=== PATIENT | female | born 1950 | race Caucasian/White ===

== ENCOUNTER → 2018-07-02 08:14 | Outpatient (CLI) | payer MEDICARE, OTHER, SELFPAY ==
--- NOTE | 2018-07-02 | DI.MG.S_ITS ---
BILATERAL DIGITAL DIAGNOSTIC MAMMOGRAM 3D/2D: 07/02/2018 CLINICAL: Bilateral breast pain. Comparison is made to exams dated: 03/01/2015 mammogram, 10/23/2014 mammogram, and 08/01/2013 mammogram - [facility]. There are scattered fibroglandular elements in both breasts. No significant masses, calcifications, or other findings are seen in either breast. IMPRESSION: NEGATIVE There is no mammographic abnormality seen in either axilla to correspond with the pain in axillae. Of note, the patient could not identify a discrete region of pain. She described diffuse pain in both axillae. There is no mammographic evidence of malignancy. A 1 year screening mammogram is recommended. This exam was interpreted at Station ID: [id number]. NOTE: For mammograms, a report in lay terms will be sent to the patient. Approximately 15% of breast malignancies will not be visualized mammographically. In the management of a palpable breast mass, a negative mammogram must not discourage biopsy of a clinically suspicious lesion. Electronically Signed By: Estrellita hernandez/:07/02/2018 09:17:12 letter sent: Clinical Evaluation ACR BI-RADS Category 1: Negative 3341F
== END ==
PROVIDERS: Family Provider Family Medicine; PCP Family Medicine; Visit Provider Family Medicine
DX: R92.8 Other abnormal and inconclusive findings on diagnostic imaging of breast (principal); N64.4 Mastodynia; C95.90 Leukemia, unspecified not having achieved remission; M85.852 Other specified disorders of bone density and structure, left thigh; Z78.0 Asymptomatic menopausal state; Z87.891 Personal history of nicotine dependence
CPT/HCPCS: 77066; 77080; G0279

== ENCOUNTER → 2021-10-01 10:43 | Outpatient (CLI) | payer MEDICARE, OTHER, SELFPAY ==
--- NOTE | 2021-10-01 | DI.MG.S_ITS ---
BILATERAL DIGITAL SCREENING MAMMOGRAM 3D/2D WITH CAD: 10/01/2021 CLINICAL: Routine screening. Family history of breast cancer. Comparison is made to exams dated: 07/02/2018 mammogram, 03/01/2015 mammogram, 10/23/2014 mammogram, and 08/01/2013 mammogram - [facility]. There are scattered fibroglandular elements in both breasts. Current study was also evaluated with a Computer Aided Detection (CAD) system. There is an irregular equal density asymmetry with an indistinct margin in the right breast middle depth central to the nipple seen on the craniocaudal view only. No other significant masses, calcifications, or other findings are seen in either breast. IMPRESSION: INCOMPLETE: NEEDS ADDITIONAL IMAGING EVALUATION The irregular equal density asymmetry in the right breast is indeterminate. Mediolateral and spot compression views as well as additional views with possible ultrasound are recommended. This exam was interpreted at Station ID: [id number]. NOTE: For mammograms, a report in lay terms will be sent to the patient. Approximately 15% of breast malignancies will not be visualized mammographically. In the management of a palpable breast mass, a negative mammogram must not discourage biopsy of a clinically suspicious lesion. Electronically Signed By: Odilon arrieta/gladis:10/01/2021 12:26:16 letter sent: Additional Imaging Needed ACR BI-RADS Category 0: Incomplete [id number]
== END ==
PROVIDERS: Family Provider Family Medicine; PCP Family Medicine; Referring Provider Family Medicine; Visit Provider Family Medicine
DX: Z12.31 Encounter for screening mammogram for malignant neoplasm of breast (principal); Z80.3 Family history of malignant neoplasm of breast
CPT/HCPCS: 77063; 77067

== ENCOUNTER → 2021-11-21 14:00 | Outpatient (CLI) | payer MEDICARE, OTHER, SELFPAY ==
--- NOTE | 2021-11-21 | DI.MG.S_ITS ---
UNILATERAL RIGHT DIGITAL DIAGNOSTIC MAMMOGRAM 3D/2D WITH ADDITIONAL VIEWS: 11/21/2021 CLINICAL: Additional evaluation requested from prior study. Comparison is made to exams dated: 10/01/2021 mammogram, 07/02/2018 mammogram, 03/01/2015 mammogram, and 10/23/2014 mammogram - [facility]. There are scattered fibroglandular elements in right breast. There is a possible benign asymmetry in the right breast middle depth central to the nipple seen on the craniocaudal view only. This is not seen in additional views. No other significant masses or calcifications are seen in the breast. IMPRESSION: NEGATIVE There is no mammographic evidence of malignancy. A 1 year screening mammogram is recommended. Exam findings were conveyed to the patient. This exam was interpreted at Station ID: [id number]. NOTE: For mammograms, a report in lay terms will be sent to the patient. Approximately 15% of breast malignancies will not be visualized mammographically. In the management of a palpable breast mass, a negative mammogram must not discourage biopsy of a clinically suspicious lesion. Electronically Signed By: Garret Hummel M.D. [facility]/:11/21/2021 14:32:35 Entry: - 11/22/2021 09:45:38 letter sent: Normal Exam ACR BI-RADS Category 1: Negative 3341F
== END ==
PROVIDERS: Family Provider Family Medicine; PCP Family Medicine; Referring Provider Family Medicine; Visit Provider Family Medicine
DX: R92.8 Other abnormal and inconclusive findings on diagnostic imaging of breast (principal)
CPT/HCPCS: 77065; G0279

== ENCOUNTER → 2023-03-12 14:03 | Outpatient (CLI) | payer MEDICARE, OTHER, SELFPAY ==
--- NOTE | 2023-03-12 | DI.RAD.S_ITS ---
PROCEDURE: XR LUMBAR SPINE MIN 4V INDICATIONS: BACK PAIN TECHNIQUE: 5 views of the lumbar spine acquired, including flexion and extension views. COMPARISON: [facility], XR L-SPINE 4-6V, 01/19/2004, 14:25. FINDINGS: Bones: 5 nonrib-bearing vertebrae are present. 2 mm retrolisthesis L1-L2, L2-L3 and L3-L4. Mild to moderate disc height loss at the C4-C5 level; otherwise multilevel endplate sclerosis and spurring. Mild facet joint arthropathy L3-L4, L4-L5. No vertebral body compression fractures. No suspicious bony lesions. Soft tissues: Overlying bowel gas pattern is normal. No suspicious soft tissue calcifications. Vascular calcifications indicate atherosclerosis. Flexion/extension: There is limited range of motion, with preserved normal alignment. IMPRESSION: Limited range of motion and multilevel lumbar spine spondylosis, most notably L4-L5 and L5-S1 Dictated by: Filiberto Winston RRA Interpreted: Warren Morse MD on 03/12/2023 at 14:39 Transcribed by: MICHAEL on 03/12/2023 at 14:41 Approved by: Warren Morse M.D. on 03/12/2023 at 16:44
== END ==
PROVIDERS: Family Provider Family Medicine; PCP Family Medicine; Referring Provider Family Medicine; Visit Provider Family Medicine
DX: M47.816 Spondylosis without myelopathy or radiculopathy, lumbar region (principal); M47.817 Spondylosis without myelopathy or radiculopathy, lumbosacral region; M54.42 Lumbago with sciatica, left side
CPT/HCPCS: 72110

== ENCOUNTER → 2023-03-18 09:10 | Outpatient (CLI) | payer MEDICARE, OTHER, SELFPAY ==
--- NOTE | 2023-03-18 | DI.RAD.S_ITS ---
PROCEDURE: XR CHEST 2V INDICATIONS: history of smoking TECHNIQUE: 2 views of the chest were acquired. COMPARISON: [facility], , CHEST 2 VIEW, 11/04/2010, 14:32. FINDINGS: Surgical changes and devices: None. Lungs and pleura: Lungs are clear. No pleural effusions or pneumothorax. Mediastinum: Mediastinal contours are normal. Heart size is normal. Bones and chest wall: No suspicious bony abnormalities. Soft tissues appear unremarkable. IMPRESSION: No acute cardiopulmonary abnormality. Dictated by: Yaw Beltran M.D. on 03/18/2023 at 10:00 Approved by: Yaw Beltran M.D. on 03/18/2023 at 10:06
== END ==
PROVIDERS: Family Provider Family Medicine; PCP Family Medicine; Referring Provider Family Medicine; Visit Provider Family Medicine
DX: Z87.891 Personal history of nicotine dependence (principal)
CPT/HCPCS: 71046

== ENCOUNTER 2023-05-21 13:45 | Outpatient (RCR) | payer MEDICARE, OTHER, SELFPAY ==
--- NOTE | 2023-04-17 15:32 | PT.OIE ---
Current Diagnoses Pain in left hip (04/17/23) Lumbago with sciatica, left side (04/17/23) Muscle weakness (generalized) (04/17/23) Visit Care Team Role Provider Type Ivan Gracia MD Attending Provider Physician Family Provider Primary Care Provider Referring Provider Specialty: Family Practice Address: [address] [place] [address], [id number] Email: [email or web address] Physical Therapy Initial Evaluation PT-OP-A Visit Information Start: 04/16/23 11:48 Freq: Status: Active Protocol: Document 04/17/23 13:27 NM (Rec: 04/17/23 15:16 NM [id number]) Out-Patient Physical Therapy Visit Information Visit Information Visit Type Initial Evaluation Visit Start Time 12:15 Visit Stop Time 01:00 Total Visit Minutes 45 Visit Number 1 Evaluation Information Evaluation Date 04/17/23 PT-OP-B Current Condition Start: 04/16/23 11:48 Freq: Status: Active Protocol: Document 04/17/23 13:27 NM (Rec: 04/17/23 15:16 NM [id number]) Current Condition History of Current Condition Onset Date mid March 2023 Current Complaints Lower back pain radiating down the LLE, L hip pain History of Current Condition Pt reports lower back pain beginning in mid-March 2023 with no known onset. No prior history of back pain or back injuries. The back pain began as a banded pattern across the lower back, but is now localized to the L side ~L4/L5 with occasional radiation down the LLE to the calf. Pt was experiencing occasional numbness in L foot, but has not experienced any numbness for 3 days. Currently, pt describes back pain as a constant ache. Pain is best managed by tylenol and heat with occasional movement ( ambulation). Prior Treatments and Tests Pt had radiographs with Dr. Perera showing degenerative changes in L5-S1 and L4-L5. Future Testing and Treatments Planned Pt is planning to follow up with Dr. Perera. Treatment Goals Patient/Caregiver Goals Don shoes and socks without pain Walk for extended period of time for errands Bend over to garden Prior Functional Status Baseline Function- ADL's Independent Baseline Function- Mobility Independent Baseline Function- Gait No reported difficulty with ambulating Current Functional Impairments (Reported) Functional Limitations- ADL's Pt reports difficulty donning shoes/socks on L foot. She is unable to sit or walk for long periods of time. Pt also mentions that she is having difficulty with gardening due to pain from being in a flexed position, and she is unable to lift items from the the ground or a lower level. Functional Limitations- Mobility/Gait Difficulty with sitting for > 30 minutes without pain medication or heat. Pt has difficulty with initiating sit to stand transfers due to back/L hip pain. Pt is unable to rotate/roll during bed mobility and has to scoot up before sitting up to move to the edge of the bed. PT-OP-C Subjective Start: 04/16/23 11:48 Freq: Status: Active Protocol: Document 04/17/23 13:27 NM (Rec: 04/17/23 15:16 NM [id number]) Patient Questionnaires Oswestry Low Back Index Oswestry Impairment 20 to 39% Impaired (Score 20- 39) OP-PT Pain Assessment Pain Assessment Grid Paper Pain Assessment Grid Completed Yes Location L hip pain Pain Location Details L anterior hip Intensity 6 Scale Used Numeric (0 - 10) Description Acute,Sharp Frequency Frequent Pain Duration lasts several seconds Radiating Location none Pain Aggravating Factors Position,Changing Position, Activity,Sitting,Bending Pain Alleviating Factors Heat,Medication Back Pain Location Details low back Intensity 4 Scale Used Numeric (0 - 10) Description Aching,Acute,Shooting,With Movement Frequency Constant Pain Duration constant Radiating Location radiation down the LLE to the calf Variations/Patterns occasional radiation Pain Aggravating Factors Position,Changing Position,ADL 's,Activity,Sitting,Stair Climbing,Bending,Lifting Pain Alleviating Factors Heat,Medication,Exercise, Elevation Home Pain Medication Use Pain Medications Used Yes: extra strength tylenol Home Pain Medication Frequency every 8 hours Pain Behaviors Pain Behaviors Facial Grimacing,Guarding, Holding Area Comments Pain Comments Pt was prescribed dexamethosone and hydrocodone for back pain by Dr. Perera, but she ran out of medications and takes only extra strength tylenol now. PT-OP-D Balance Start: 04/16/23 11:48 Freq: Status: Active Protocol: Document 04/17/23 13:27 NM (Rec: 04/17/23 15:16 NM [id number]) OP-PT Balance Assessment Standing Balance Static Standing Balance Ability Good Dynamic Standing Balance Ability Fair Device Used none Balance Tests Single Limb Standing Single Limb- Right 3 sec Single Limb- Left 0 sec Aleman Fall Scale Copyright Permission PT-OP-E Functional Tests Start: 04/16/23 11:48 Freq: Status: Active Protocol: Document 04/17/23 13:27 NM (Rec: 04/17/23 15:16 NM [id number]) Functional Tests Five Times Sit to Stand Test Score 20 seconds Comments pain with initial sit to stands, but pain decreases with repetitive motion Timed Up and Go (TUG) Score 6 seconds Comments turned L TUG Impairment Rating 0% Impaired (Score 10) PT-OP-F Manual Assessment Start: 04/16/23 11:48 Freq: Status: Active Protocol: Document 04/17/23 13:27 NM (Rec: 04/17/23 15:16 NM [id number]) Manual Assessments Joint Mobility Assessment Joint Mobility Assessment PA springing to lumbar spine ( L1-LS2): end feels are springy and pain is not provoked. Hip mobility assessed: full B hip ROM, normal end feels; no pain provoked SI Joint PA springing: normal end feel, no pain provoked PT-OP-G Mobility & Gait Start: 04/16/23 11:48 Freq: Status: Active Protocol: Document 04/17/23 13:27 NM (Rec: 04/17/23 15:16 NM [id number]) OP Mobility Evaluation Bed Mobility Rolling Unable due to pain Supine to and from Sit Independent but with difficulty due to pain; has to scoot up in the bed to sit up and only gets out on the L side of the bed OP Gait Assessment Gait Gait Assistance Required: Independent Assistive Devices Assistive Device None Gait Deviations General Gait Pattern Antalgic,Flexed Trunk Factors Limiting Gait Function Factors Limiting Gait Function Limited Range of Motion,Pain Comments Gait Comments Upon initially moving from sit to stand, pt demonstrates unsteadiness and will reach for an object to steady; able to ambulate independently with antalgic gait, flexed trunk and knees to without loss of balance. PT-OP-J Posture/Palpation/Skin Start: 04/16/23 11:48 Freq: Status: Active Protocol: Document 04/17/23 13:27 NM (Rec: 04/17/23 15:16 NM [id number]) Posture Evaluation Position Standing Evaluation View Lateral Head/C-Spine Posture Flexed,Side Bent Right L-Spine Posture Decreased Lordosis Shoulder Posture (L) Forward,(R) Forward Hip Posture (L) Externally Rotated,(R) Externally Rotated Palpation Assessment Location L hip Palpation Location lateral hip Palpation Details No tenderness, no edema, no abnormal findings Paraspinals Palpation Findings Tenderness Palpation Details Tenderness around L L4-S2, but does not evoke symptoms. No muscle guarding PT-OP-K Range of Motion Start: 04/16/23 11:48 Freq: Status: Active Protocol: Document 04/17/23 13:27 NM (Rec: 04/17/23 15:16 NM [id number]) Lumbar Spine Range of Motion Lumbar Spine Active Degrees Testing Position Standing Flexion 50 Extension 20 Lateral Flexion Left 10 Lateral Flexion Right 20 ROM Limitations Pain Comments All active motions are limited due to pain, but primarily flexion and L rotation. L rot: 3 R rot: 5 Hip Goniometric Range of Motion Hip Left Hip ROM WFL Yes Testing Position Supine Right Hip ROM WFL Yes Testing Position Supine Hip ROM Limitations Hip ROM Limitations Pain Comments No pain provocation in B hips or back with hip movement in supine. Pain only in L hip external rotation in sitting. PT-OP-L Special Tests Start: 04/16/23 11:48 Freq: Status: Active Protocol: Document 04/17/23 13:27 NM (Rec: 04/17/23 15:16 NM [id number]) Special Tests Lumbar Spine Special Tests Yo/Quadrant Test Results negative Comments No symptom provocation in ext/ SB/rot on either side SIJ Cluster Test Results negative Comments No symptom provocation w B anterior distraction, sacral thrust, compression Straight Leg Raise Test Results Negative Comments No symptom provocation Prone Press Up Test Results Positive Comments Relieved back pain Standing Flexion Test Results 13 from ground Comments provokes back pain PT-OP-M Strength Start: 04/16/23 11:48 Freq: Status: Active Protocol: Document 04/17/23 13:27 NM (Rec: 04/17/23 15:16 NM [id number]) Trunk Strength Trunk Manual Muscle Testing Testing Position standing Flexion 4- Good- Extension 4- Good- Rotation Left 3+ Fair+ Rotation Right 4 Good Lateral Flexion Left 3+ Fair+ Lateral Flexion Right 4 Good Core Stabilization Unable to perform sitting up motion during bed mobility without use of BUE, difficulty maintaining stable trunk while in quadruped Comments Poor core stabilization without compensation (hip or shoulder rotation) Hip Strength Hip Manual Muscle Testing Left Flexion (L2) 4- Good- Extension (S1) 4- Good- Abduction 3+ Fair+ Adduction 4- Good- External Rotation 3+ Fair+ Internal Rotation 3+ Fair+ Comments No pain provocation in hips or low back Right Flexion (L2) 4 Good Extension (S1) 4 Good Abduction 4- Good- Adduction 4 Good External Rotation 3+ Fair+ Internal Rotation 3+ Fair+ Comments No pain provocation in hips or low back PT-OP-Q Treatments Start: 04/16/23 11:48 Freq: Status: Active Protocol: Document 04/17/23 13:27 NM (Rec: 04/17/23 15:16 NM [id number]) Therapeutic Exercises Prone Exercises Prone low back/hip stretch Prone Exercise Name elbows at 90 deg under shoulders Side bilateral Equipment Used table Reps/Minutes 30 Comments HEP Prone Press Up Side bilateral Equipment Used table Reps/Minutes 5 Comments HEP PT-OP-T Assessment and Plan Start: 04/16/23 11:48 Freq: Status: Active Protocol: Document 04/17/23 13:27 NM (Rec: 04/17/23 15:16 NM [id number]) Physical Therapy Assessment Rehab Potential Rehabilitation Potential Good Evaluation Complexity Number of Personal Factors/Comorbidities 3 or More Number of Body Systems Impaired 1-2 Clinical Presentation at Evaluation Evolving Impairments Impairments Activity Tolerance,Balance, Functional Activities, Functional Mobility,Gait,Pain, Posture,ROM,Soft Tissue Mobility,Strength Goals 5 Impairment ROM, Pain Short Term Goal (STG) Pt will be able to don L shoes and socks with a pain or 4/10 or less in order to demonstrate improved hip and lumbar ROM. STG Duration 05/07/23 [facility] Goal (LTG) Pt will be able to don L shoes and socks in sitting with pain of 2/10 or less in order to demonstrate improved hip and lumbar ROM, pain management, and activity tolerance. LTG Duration 05/22/23 4 Impairment Strength, Endurance Short Term Goal (STG) Pt will be able to walk for at least 20 minutes with low back pain of 3/10 or less in order to improve activity tolerance. STG Duration 05/07/23 [facility] Goal (LTG) Pt will be able to ambulate for at least 45 minutes with low back pain of 2/10 or less in order to demonstrate improved hip strength and activity tolerance for shopping/errands. LTG Duration 05/22/23 3 Impairment Pain Short Term Goal (STG) Pt will improve Oswestry score by 6 points in order to demostrate improved pain management. STG Duration 05/07/23 [facility] Goal (LTG) Pt will improve Oswestry score by 12 points (MCID) in order to demonstrate improved pain management and activity tolerance during ADLs. LTG Duration 05/22/23 2 Impairment Strength, Balance Short Term Goal (STG) Pt will be able to perform 5/ 10 step ups on a 6 step with LLE leading and 1 or fewer UE for stabilization . STG Duration 05/07/23 [facility] Goal (LTG) Pt will be able perform 8/10 step ups on a 6 step with LLE leading and no use of upper extremities for stabilization in order to demonstrate improved hip strength and single leg balance to safely use the stairs leading up the house and in the community. LTG Duration 05/22/23 1 Impairment Functional, ROM Short Term Goal (STG) Pt will improve lumbar flexion by 5 degrees. STG Duration 05/07/23 [facility] Goal (LTG) Pt will improve lumbar flexion by 10 degrees in order to leaf size picker objects from the ground without pain. LTG Duration 05/22/23 Assessment Summary Assessment Pt is a 72 y.o. female presenting with symptoms of L low back pain and L anterior/ lateral hip pain consistent with dx. Pt is limited by lumbar range of motion in all directions, with lumbar flexion primarily provoking pain. Limitations in trunk/ core strength and hip strength may also be a contributing factor. Pt has the most difficulty with transferring from sit to stand position, ambulating or sitting for extended periods of time, bending, lifting, and donnign shows/socks. Yo/quadrant test, straight leg raise, lumbar PA spring tests, and SIJ provocation tests do not provoke symptomatic pain; pain is only reproduced in lumbar flexion and wiht hip external rotation in sitting. Pt responds with decreased pain to Jesica extension exercises in prone; issued HEP with 2 prone press up exercises. Pt demonstrates deficits in trunk/core/hip strength and trunk ROM. Pt is a good candidate for skilled physical therapy to address impairments in strength, balance, endurance, posture, and gait in order to improve quality of life, pain management, and activity tolerance. Physical Therapy Plan Frequency and Duration Frequency of Treatment 2x/Week Duration of treatment (weeks) 6 Plan of Care Start Date 04/17/23 Plan of Care End Date 05/22/23 Therapeutic Interventions Therapeutic Interventions Aquatic Therapy,Balance Training,Coordination Training ,Gait Training,Home Exercise Program,Joint Mobilizations, Manual Therapy,Neuromuscular Re-education,Patient/Caregiver Education,Soft Tissue Mobilization,Therapeutic Activities,Therapeutic Exercises Modalities Cold Pack/Ice Massage,Electric Stimulation,Hot Packs, Traction- Mechanical Next Visit Focus/Plan Next Note Type Treatment Note Next Visit Plan Initiate gentle core strengthening. Stretch and strengthen hips, low back. Possibly manual traction in extension pattern
--- NOTE | 2023-04-17 15:34 | PT.OPPOC ---
Addendum entered and electronically signed by Michell Dawkins, PT 04/21/23 09:21: POC manually faxed 04/21/23 Original Note: Physical, Occupational & Speech Therapy At [facility] Current Diagnoses Pain in left hip (04/17/23) Lumbago with sciatica, left side (04/17/23) Muscle weakness (generalized) (04/17/23) Visit Care Team Role Provider Type Ivan Gracia MD Attending Provider Physician Family Provider Primary Care Provider Referring Provider Specialty: Family Practice Address: [address] [place] [address], [facility] Email: [email or web address] Plan Of Care PT-OP-T Assessment and Plan Start: 04/16/23 11:48 Freq: Status: Active Protocol: Document 04/17/23 13:27 NM (Rec: 04/17/23 15:16 NM [id number]) Physical Therapy Assessment Rehab Potential Rehabilitation Potential Good Evaluation Complexity Number of Personal Factors/Comorbidities 3 or More Number of Body Systems Impaired 1-2 Clinical Presentation at Evaluation Evolving Impairments Impairments Activity Tolerance,Balance, Functional Activities, Functional Mobility,Gait,Pain, Posture,ROM,Soft Tissue Mobility,Strength Goals 5 Impairment ROM, Pain Short Term Goal (STG) Pt will be able to don L shoes and socks with a pain or 4/10 or less in order to demonstrate improved hip and lumbar ROM. STG Duration 05/07/23 Office Inspector Goal (LTG) Pt will be able to don L shoes and socks in sitting with pain of 2/10 or less in order to demonstrate improved hip and lumbar ROM, pain management, and activity tolerance. LTG Duration 05/22/23 4 Impairment Strength, Endurance Short Term Goal (STG) Pt will be able to walk for at least 30 minutes with low back pain of 3/10 or less in order to improve activity tolerance. STG Duration 05/07/23 Office Inspector Goal (LTG) Pt will be able to ambulate for at least 60 minutes with low back pain of 2/10 or less in order to demonstrate improved hip strength and activity tolerance for shopping/errands. LTG Duration 05/22/23 3 Impairment Pain Short Term Goal (STG) Pt will improve Oswestry score by 6 points in order to demostrate improved pain management. STG Duration 05/07/23 Office Inspector Goal (LTG) Pt will improve Oswestry score by 12 points (MCID) in order to demonstrate improved pain management and activity tolerance during ADLs. LTG Duration 05/22/23 2 Impairment Strength, Balance Short Term Goal (STG) Pt will be able to perform 5/ 10 step ups on a 6 step with LLE leading and 1 or fewer UE for stabilization . STG Duration 05/07/23 Snf Goal (LTG) Pt will be able perform 8/10 step ups on a 6 step with LLE leading and no use of upper extremities for stabilization in order to demonstrate improved hip strength and single leg balance to safely use the stairs leading up the house and in the community. LTG Duration 05/22/23 1 Impairment Functional, ROM Short Term Goal (STG) Pt will improve lumbar flexion by 5 degrees. STG Duration 05/07/23 Snf Goal (LTG) Pt will improve lumbar flexion by 10 degrees in order to excelsior picker objects from the ground without pain. LTG Duration 05/22/23 Assessment Summary Assessment Pt is a 72 y.o. female presenting with symptoms of L low back pain and L anterior/ lateral hip pain consistent with dx. Pt is limited by lumbar range of motion in all directions, with lumbar flexion primarily provoking pain. Limitations in trunk/ core strength and hip strength may also be a contributing factor. Pt has the most difficulty with transferring from sit to stand position, ambulating or sitting for extended periods of time, bending, lifting, and donnign shows/socks. Yo/quadrant test, straight leg raise, lumbar PA spring tests, and SIJ provocation tests do not provoke symptomatic pain; pain is only reproduced in lumbar flexion and wiht hip external rotation in sitting. Pt responds with decreased pain to Jesica extension exercises in prone; issued HEP with 2 prone press up exercises. Pt demonstrates deficits in trunk/core/hip strength and trunk ROM. Pt is a good candidate for skilled physical therapy to address impairments in strength, balance, endurance, posture, and gait in order to improve quality of life, pain management, and activity tolerance. Physical Therapy Plan Frequency and Duration Frequency of Treatment 2x/Week Duration of treatment (weeks) 6 Plan of Care Start Date 04/17/23 Plan of Care End Date 05/22/23 Therapeutic Interventions Therapeutic Interventions Aquatic Therapy,Balance Training,Coordination Training ,Gait Training,Home Exercise Program,Joint Mobilizations, Manual Therapy,Neuromuscular Re-education,Patient/Caregiver Education,Soft Tissue Mobilization,Therapeutic Activities,Therapeutic Exercises Modalities Cold Pack/Ice Massage,Electric Stimulation,Hot Packs, Traction- Mechanical Next Visit Focus/Plan Next Note Type Treatment Note Next Visit Plan Initiate gentle core strengthening. Stretch and strengthen hips, low back. Possibly manual traction in extension pattern Plan of Care Dates Plan of Care Start Date 04/17/23 Plan of Care End Date 05/22/23 Electronically Signed by: Michell Dawkins, PT 04/17/23 [id number] If you are in agreement with this Plan of Care, please return a signed and dated copy. I have reviewed this Plan of Care and certify that the skilled therapy services above are required to meet the patient?s needs. Physician Signature Date Printed Name and Credentials Clinical Instructor Signature Printed Name and Credentials
--- NOTE | 2023-04-21 14:16 | PT.OTN ---
Current Diagnoses Pain in left hip (04/21/23) Lumbago with sciatica, left side (04/21/23) Muscle weakness (generalized) (04/21/23) Physical Therapy Treatment Note PT-OP-A Visit Information Start: 04/16/23 11:48 Freq: Status: Active Protocol: Document 04/21/23 13:07 NM (Rec: 04/21/23 14:15 NM [id number]) Out-Patient Physical Therapy Visit Information Visit Information Visit Type Treatment Note Visit Start Time 13:00 Visit Stop Time 13:45 Total Visit Minutes 45 Visit Number 2 PT-OP-B Current Condition Start: 04/16/23 11:48 Freq: Status: Active Protocol: Document 04/17/23 13:27 NM (Rec: 04/17/23 15:16 NM [id number]) Current Condition History of Current Condition Onset Date mid March 2023 Current Complaints Lower back pain radiating down the LLE, L hip pain History of Current Condition Pt reports lower back pain beginning in mid-March 2023 with no known onset. No prior history of back pain or back injuries. The back pain began as a banded pattern across the lower back, but is now localized to the L side ~L4/L5 with occasional radiation down the LLE to the calf. Pt was experiencing occasional numbness in L foot, but has not experienced any numbness for 3 days. Currently, pt describes back pain as a constant ache. Pain is best managed by tylenol and heat with occasional movement ( ambulation). Prior Treatments and Tests Pt had radiographs with Dr. Perera showing degenerative changes in L5-S1 and L4-L5. Future Testing and Treatments Planned Pt is planning to follow up with Dr. Perera. Treatment Goals Patient/Caregiver Goals Don shoes and socks without pain Walk for extended period of time for errands Bend over to garden Prior Functional Status Baseline Function- ADL's Independent Baseline Function- Mobility Independent Baseline Function- Gait No reported difficulty with ambulating Current Functional Impairments (Reported) Functional Limitations- ADL's Pt reports difficulty donning shoes/socks on L foot. She is unable to sit or walk for long periods of time. Pt also mentions that she is having difficulty with gardening due to pain from being in a flexed position, and she is unable to lift items from the the ground or a lower level. Functional Limitations- Mobility/Gait Difficulty with sitting for > 30 minutes without pain medication or heat. Pt has difficulty with initiating sit to stand transfers due to back/L hip pain. Pt is unable to rotate/roll during bed mobility and has to scoot up before sitting up to move to the edge of the bed. PT-OP-C Subjective Start: 04/16/23 11:48 Freq: Status: Active Protocol: Document 04/21/23 13:07 NM (Rec: 04/21/23 14:15 NM [id number]) OP-PT Subjective Patient Comments Patient Comments Pt reports that she is not doing well today. She states that she has 5/10 pain in her L hip and 4/10 pain in her low back; she did not take any pain medication today. She reports compliance with her HEP; however, she has difficulty performing the press up because her bed is too soft. PT-OP-D Balance Start: 04/16/23 11:48 Freq: Status: Active Protocol: Document 04/17/23 13:27 NM (Rec: 04/17/23 15:16 NM [id number]) OP-PT Balance Assessment Standing Balance Static Standing Balance Ability Good Dynamic Standing Balance Ability Fair Device Used none Balance Tests Single Limb Standing Single Limb- Right 3 sec Single Limb- Left 0 sec Aleman Fall Scale Copyright Permission PT-OP-E Functional Tests Start: 04/16/23 11:48 Freq: Status: Active Protocol: Document 04/17/23 13:27 NM (Rec: 04/17/23 15:16 NM [id number]) Functional Tests Five Times Sit to Stand Test Score 20 seconds Comments pain with initial sit to stands, but pain decreases with repetitive motion Timed Up and Go (TUG) Score 6 seconds Comments turned L TUG Impairment Rating 0% Impaired (Score 10) PT-OP-F Manual Assessment Start: 04/16/23 11:48 Freq: Status: Active Protocol: Document 04/17/23 13:27 NM (Rec: 04/17/23 15:16 NM [id number]) Manual Assessments Joint Mobility Assessment Joint Mobility Assessment PA springing to lumbar spine ( L1-LS2): end feels are springy and pain is not provoked. Hip mobility assessed: full B hip ROM, normal end feels; no pain provoked SI Joint PA springing: normal end feel, no pain provoked PT-OP-G Mobility & Gait Start: 04/16/23 11:48 Freq: Status: Active Protocol: Document 04/17/23 13:27 NM (Rec: 04/17/23 15:16 NM [id number]) OP Mobility Evaluation Bed Mobility Rolling Unable due to pain Supine to and from Sit Independent but with difficulty due to pain; has to scoot up in the bed to sit up and only gets out on the L side of the bed OP Gait Assessment Gait Gait Assistance Required: Independent Assistive Devices Assistive Device None Gait Deviations General Gait Pattern Antalgic,Flexed Trunk Factors Limiting Gait Function Factors Limiting Gait Function Limited Range of Motion,Pain Comments Gait Comments Upon initially moving from sit to stand, pt demonstrates unsteadiness and will reach for an object to steady; able to ambulate independently with antalgic gait, flexed trunk and knees to without loss of balance. PT-OP-J Posture/Palpation/Skin Start: 04/16/23 11:48 Freq: Status: Active Protocol: Document 04/17/23 13:27 NM (Rec: 04/17/23 15:16 NM [id number]) Posture Evaluation Position Standing Evaluation View Lateral Head/C-Spine Posture Flexed,Side Bent Right L-Spine Posture Decreased Lordosis Shoulder Posture (L) Forward,(R) Forward Hip Posture (L) Externally Rotated,(R) Externally Rotated Palpation Assessment Location L hip Palpation Location lateral hip Palpation Details No tenderness, no edema, no abnormal findings Paraspinals Palpation Findings Tenderness Palpation Details Tenderness around L L4-S2, but does not evoke symptoms. No muscle guarding PT-OP-K Range of Motion Start: 04/16/23 11:48 Freq: Status: Active Protocol: Document 04/17/23 13:27 NM (Rec: 04/17/23 15:16 NM [id number]) Lumbar Spine Range of Motion Lumbar Spine Active Degrees Testing Position Standing Flexion 50 Extension 20 Lateral Flexion Left 10 Lateral Flexion Right 20 ROM Limitations Pain Comments All active motions are limited due to pain, but primarily flexion and L rotation. L rot: 3 R rot: 5 Hip Goniometric Range of Motion Hip Left Hip ROM WFL Yes Testing Position Supine Right Hip ROM WFL Yes Testing Position Supine Hip ROM Limitations Hip ROM Limitations Pain Comments No pain provocation in B hips or back with hip movement in supine. Pain only in L hip external rotation in sitting. PT-OP-L Special Tests Start: 04/16/23 11:48 Freq: Status: Active Protocol: Document 04/17/23 13:27 NM (Rec: 04/17/23 15:16 NM [id number]) Special Tests Lumbar Spine Special Tests Yo/Quadrant Test Results negative Comments No symptom provocation in ext/ SB/rot on either side SIJ Cluster Test Results negative Comments No symptom provocation w B anterior distraction, sacral thrust, compression Straight Leg Raise Test Results Negative Comments No symptom provocation Prone Press Up Test Results Positive Comments Relieved back pain Standing Flexion Test Results 13 from ground Comments provokes back pain PT-OP-M Strength Start: 04/16/23 11:48 Freq: Status: Active Protocol: Document 04/17/23 13:27 NM (Rec: 04/17/23 15:16 NM [id number]) Trunk Strength Trunk Manual Muscle Testing Testing Position standing Flexion 4- Good- Extension 4- Good- Rotation Left 3+ Fair+ Rotation Right 4 Good Lateral Flexion Left 3+ Fair+ Lateral Flexion Right 4 Good Core Stabilization Unable to perform sitting up motion during bed mobility without use of BUE, difficulty maintaining stable trunk while in quadruped Comments Poor core stabilization without compensation (hip or shoulder rotation) Hip Strength Hip Manual Muscle Testing Left Flexion (L2) 4- Good- Extension (S1) 4- Good- Abduction 3+ Fair+ Adduction 4- Good- External Rotation 3+ Fair+ Internal Rotation 3+ Fair+ Comments No pain provocation in hips or low back Right Flexion (L2) 4 Good Extension (S1) 4 Good Abduction 4- Good- Adduction 4 Good External Rotation 3+ Fair+ Internal Rotation 3+ Fair+ Comments No pain provocation in hips or low back PT-OP-Q Treatments Start: 04/16/23 11:48 Freq: Status: Active Protocol: Document 04/21/23 13:07 NM (Rec: 04/21/23 14:15 NM [id number]) Therapeutic Exercises Supine Exercises LTR Side bilateral Reps/Minutes 2x30 Comments no pain with rotation, range increases with ea rep Bridge Supine Exercise Name HEP Side bilateral Resistance level 3 (light green) band at knees Reps/Minutes x10 Comments cues for glute activation + ppt, push against band for hip abd Prone Exercises Superman Prone Exercise Name HEP Side bilateral Reps/Minutes x10, 1 pause at top of range Comments BUE only; cues for paraspinal activation; completes with difficulty hip extension Side bilateral Reps/Minutes 2x15, 3 isometric at top of range Comments cues for glute activation, neutral hip position Prone low back/hip stretch Prone Exercise Name HEP Side bilateral Equipment Used table Reps/Minutes 2x1' Comments elbows at 90 deg under shoulders Prone Press Up Prone Exercise Name HEP Side bilateral Equipment Used table Reps/Minutes 2x10 Comments cues to contract paraspinals > arms Sidelying Exercises clams Sidelying Exercise Name HEP Side bilateral Equipment Used pillow between thighs for first sets Reps/Minutes 2x10 Comments cues to prevent trunk rotation , no pain Therapeutic Activity Therapeutic Activity Rolling Reps/Minutes x3 Comments Educated on rolling beginning in modified hooklying position to prevent twisting of trunk during bed mobility Manual Therapy Treatment Soft Tissue Mobilization Soft Tissue Mobilization Body Location B paraspinals, B QL Mobilization Type Cross-Friction,Sustained Pressure Intensity/Depth Superficial Body Position Supine Comments Exhibits slight muscle guarding but does not report tenderness or pain PT-OP-T Assessment and Plan Start: 04/16/23 11:48 Freq: Status: Active Protocol: Document 04/21/23 13:07 NM (Rec: 04/21/23 14:15 NM [id number]) Physical Therapy Assessment Rehab Potential Rehabilitation Potential Good Impairments Impairments Activity Tolerance,Balance, Functional Activities, Functional Mobility,Gait,Pain, Posture,ROM,Soft Tissue Mobility,Strength Goals 5 Impairment ROM, Pain Short Term Goal (STG) Pt will be able to don L shoes and socks with a pain or 4/10 or less in order to demonstrate improved hip and lumbar ROM. STG Duration 05/07/23 Manager Industrial Goal (LTG) Pt will be able to don L shoes and socks in sitting with pain of 2/10 or less in order to demonstrate improved hip and lumbar ROM, pain management, and activity tolerance. LTG Duration 05/22/23 4 Impairment Strength, Endurance Short Term Goal (STG) Pt will be able to walk for at least 30 minutes with low back pain of 3/10 or less in order to improve activity tolerance. STG Duration 05/07/23 Senior Living Goal (LTG) Pt will be able to ambulate for at least 60 minutes with low back pain of 2/10 or less in order to demonstrate improved hip strength and activity tolerance for shopping/errands. LTG Duration 05/22/23 3 Impairment Pain Short Term Goal (STG) Pt will improve Oswestry score by 6 points in order to demostrate improved pain management. STG Duration 05/07/23 Manager Industrial Goal (LTG) Pt will improve Oswestry score by 12 points (MCID) in order to demonstrate improved pain management and activity tolerance during ADLs. LTG Duration 05/22/23 2 Impairment Strength, Balance Short Term Goal (STG) Pt will be able to perform 5/ 10 step ups on a 6 step with LLE leading and 1 or fewer UE for stabilization . STG Duration 05/07/23 Manager Industrial Goal (LTG) Pt will be able perform 8/10 step ups on a 6 step with LLE leading and no use of upper extremities for stabilization in order to demonstrate improved hip strength and single leg balance to safely use the stairs leading up the house and in the community. LTG Duration 05/22/23 1 Impairment Functional, ROM Short Term Goal (STG) Pt will improve lumbar flexion by 5 degrees. STG Duration 05/07/23 Senior Living Goal (LTG) Pt will improve lumbar flexion by 10 degrees in order to garbage pick up man objects from the ground without pain. LTG Duration 05/22/23 Assessment Summary Assessment Pt tolerated treatment well and reports that she feels amazing after session completion. Initiated global hip and trunk extension strengthening with emphasis on execution, core engagement, and glute activation. Pt demonstrates improved trunk ROM during supine trunk rotation exercise. Continues to have preference for back extension over flexion;as pt progresses with strengthening and activity tolerance, will attempt to re-introduce flexion-biased exercises. Pt educated on sleeping position to assist symptom reduction and how to safely roll from modified hooklying to prevent symptom exacerbation during bed mobility. Most painful position is during standing hip hinge motion, primarily felt in L hip. HEP updated to include bridges, clam shells, and BUE superman for back extension strengthening. Pt would benefit from skilled PT to address impairments in hip/ trunk strength and ROM, activity tolerance, and pain management strategies. Physical Therapy Plan Frequency and Duration Frequency of Treatment 2x/Week Duration of treatment (weeks) 6 Plan of Care Start Date 04/17/23 Plan of Care End Date 05/22/23 Therapeutic Interventions Therapeutic Interventions Aquatic Therapy,Balance Training,Coordination Training ,Gait Training,Home Exercise Program,Joint Mobilizations, Manual Therapy,Neuromuscular Re-education,Patient/Caregiver Education,Soft Tissue Mobilization,Therapeutic Activities,Therapeutic Exercises Modalities Cold Pack/Ice Massage,Electric Stimulation,Hot Packs, Traction- Mechanical Next Visit Focus/Plan Next Note Type Treatment Note Next Visit Plan Progress hip and trunk strengthening as needed. If tolerated, initiate gentle trunk flexion activities ( supine - knees to chest stretch, core + TA activation like alt marches, etc). L hip is painful with standing hinge , rotation so be mindful during flexion activities.
--- NOTE | 2023-04-23 10:35 | PT-OP ANOTE ---
Pt cancelled <24 hrs, appt conflict.
--- NOTE | 2023-04-28 14:35 | PT.OTN ---
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 No prior history of back pain or back injuries. The back pain began as a banded pattern across the lower back, but is now localized to the L side ~L4/L5 with occasional radiation down the LLE to the calf. Pt was experiencing occasional numbness in L foot, but has not experienced any numbness for 3 days. Currently, pt describes back pain as a constant ache. Pain is best managed by tylenol and heat with occasional movement ( ambulation). Prior Treatments and Tests Pt had radiographs with Dr. Perera showing degenerative changes in L5-S1 and L4-L5. Future Testing and Treatments Planned Pt is planning to follow up with Dr. Perera. Treatment Goals Patient/Caregiver Goals Don shoes and socks without pain Walk for extended period of time for errands Bend over to garden Prior Functional Status Baseline Function- ADL's Independent Baseline Function- Mobility Independent Baseline Function- Gait No reported difficulty with ambulating Current Functional Impairments (Reported) Functional Limitations- ADL's Pt reports difficulty donning shoes/socks on L foot. She is unable to sit or walk for long periods of time. Pt also mentions that she is having difficulty with gardening due to pain from being in a flexed position, and she is unable to lift items from the the ground or a lower level. Functional Limitations- Mobility/Gait Difficulty with sitting for > 30 minutes without pain medication or heat. Pt has difficulty with initiating sit to stand transfers due to back/L hip pain. Pt is unable to rotate/roll during bed mobility and has to scoot up before sitting up to move to the edge of the bed. PT-OP-C Subjective Start: 04/16/23 11:48 Freq: Status: Active Protocol: Document 04/28/23 12:27 NM (Rec: 04/28/23 13:00 NM [id number]) OP-PT Subjective Patient Comments Patient Comments Pt states that she is doing very well with no pain. She reports compliance with exercises, and feels great. She was able to sleep on her bad hip. PT-OP-D Balance Start: 04/16/23 11:48 Freq: Status: Active Protocol: Document 04/17/23 13:27 NM (Rec: 04/17/23 15:16 NM [id number]) OP-PT Balance Assessment Standing Balance Static Standing Balance Ability Good Dynamic Standing Balance Ability Fair Device Used none Balance Tests Single Limb Standing Single Limb- Right 3 sec Single Limb- Left 0 sec Aleman Fall Scale Copyright Permission PT-OP-E Functional Tests Start: 04/16/23 11:48 Freq: Status: Active Protocol: Document 04/17/23 13:27 NM (Rec: 04/17/23 15:16 NM [id number]) Functional Tests Five Times Sit to Stand Test Score 20 seconds Comments pain with initial sit to stands, but pain decreases with repetitive motion Timed Up and Go (TUG) Score 6 seconds Comments turned L TUG Impairment Rating 0% Impaired (Score 10) PT-OP-F Manual Assessment Start: 04/16/23 11:48 Freq: Status: Active Protocol: Document 04/17/23 13:27 NM (Rec: 04/17/23 15:16 NM [id number]) Manual Assessments Joint Mobility Assessment Joint Mobility Assessment PA springing to lumbar spine ( L1-LS2): end feels are springy and pain is not provoked. Hip mobility assessed: full B hip ROM, normal end feels; no pain provoked SI Joint PA springing: normal end feel, no pain provoked PT-OP-G Mobility & Gait Start: 04/16/23 11:48 Freq: Status: Active Protocol: Document 04/17/23 13:27 NM (Rec: 04/17/23 15:16 NM [id number]) OP Mobility Evaluation Bed Mobility Rolling Unable due to pain Supine to and from Sit Independent but with difficulty due to pain; has to scoot up in the bed to sit up and only gets out on the L side of the bed OP Gait Assessment Gait Gait Assistance Required: Independent Assistive Devices Assistive Device None Gait Deviations General Gait Pattern Antalgic,Flexed Trunk Factors Limiting Gait Function Factors Limiting Gait Function Limited Range of Motion,Pain Comments Gait Comments Upon initially moving from sit to stand, pt demonstrates unsteadiness and will reach for an object to steady; able to ambulate independently with antalgic gait, flexed trunk and knees to without loss of balance. PT-OP-J Posture/Palpation/Skin Start: 04/16/23 11:48 Freq: Status: Active Protocol: Document 04/17/23 13:27 NM (Rec: 04/17/23 15:16 NM [id number]) Posture Evaluation Position Standing Evaluation View Lateral Head/C-Spine Posture Flexed,Side Bent Right L-Spine Posture Decreased Lordosis Shoulder Posture (L) Forward,(R) Forward Hip Posture (L) Externally Rotated,(R) Externally Rotated Palpation Assessment Location L hip Palpation Location lateral hip Palpation Details No tenderness, no edema, no abnormal findings Paraspinals Palpation Findings Tenderness Palpation Details Tenderness around L L4-S2, but does not evoke symptoms. No muscle guarding PT-OP-K Range of Motion Start: 04/16/23 11:48 Freq: Status: Active Protocol: Document 04/17/23 13:27 NM (Rec: 04/17/23 15:16 NM [id number]) Lumbar Spine Range of Motion Lumbar Spine Active Degrees Testing Position Standing Flexion 50 Extension 20 Lateral Flexion Left 10 Lateral Flexion Right 20 ROM Limitations Pain Comments All active motions are limited due to pain, but primarily flexion and L rotation. L rot: 3 R rot: 5 Hip Goniometric Range of Motion Hip Left Hip ROM WFL Yes Testing Position Supine Right Hip ROM WFL Yes Testing Position Supine Hip ROM Limitations Hip ROM Limitations Pain Comments No pain provocation in B hips or back with hip movement in supine. Pain only in L hip external rotation in sitting. PT-OP-L Special Tests Start: 04/16/23 11:48 Freq: Status: Active Protocol: Document 04/17/23 13:27 NM (Rec: 04/17/23 15:16 NM [id number]) Special Tests Lumbar Spine Special Tests Yo/Quadrant Test Results negative Comments No symptom provocation in ext/ SB/rot on either side SIJ Cluster Test Results negative Comments No symptom provocation w B anterior distraction, sacral thrust, compression Straight Leg Raise Test Results Negative Comments No symptom provocation Prone Press Up Test Results Positive Comments Relieved back pain Standing Flexion Test Results 13 from ground Comments provokes back pain PT-OP-M Strength Start: 04/16/23 11:48 Freq: Status: Active Protocol: Document 04/17/23 13:27 NM (Rec: 04/17/23 15:16 NM [id number]) Trunk Strength Trunk Manual Muscle Testing Testing Position standing Flexion 4- Good- Extension 4- Good- Rotation Left 3+ Fair+ Rotation Right 4 Good Lateral Flexion Left 3+ Fair+ Lateral Flexion Right 4 Good Core Stabilization Unable to perform sitting up motion during bed mobility without use of BUE, difficulty maintaining stable trunk while in quadruped Comments Poor core stabilization without compensation (hip or shoulder rotation) Hip Strength Hip Manual Muscle Testing Left Flexion (L2) 4- Good- Extension (S1) 4- Good- Abduction 3+ Fair+ Adduction 4- Good- External Rotation 3+ Fair+ Internal Rotation 3+ Fair+ Comments No pain provocation in hips or low back Right Flexion (L2) 4 Good Extension (S1) 4 Good Abduction 4- Good- Adduction 4 Good External Rotation 3+ Fair+ Internal Rotation 3+ Fair+ Comments No pain provocation in hips or low back PT-OP-Q Treatments Start: 04/16/23 11:48 Freq: Status: Active Protocol: Document 04/28/23 12:27 NM (Rec: 04/28/23 13:00 NM [id number]) Therapeutic Exercises Supine Exercises Figure four Side bilateral Reps/Minutes 2x30 Comments with hip flexion, reports no lateral hip pain TA activation Supine Exercise Name 1. Contraction, 2. Single leg august Reps/Minutes 10 ea Comments good TA activation with august Prone Exercises Child's pose Side bilateral Reps/Minutes 2x30 Comments reports good stretch Superman Side bilateral Reps/Minutes x10, 1 pause at top of range Comments BUE only; cues for paraspinal activation; completes with difficulty hip extension Side bilateral Reps/Minutes 2x15, 3 isometric at top of range Comments cues for glute activation, neutral hip position Prone low back/hip stretch Side bilateral Equipment Used table Reps/Minutes 30 between exercises in prone /quad Comments elbows at 90 deg under shoulders Sidelying Exercises clams Sidelying Exercise Name progress to sidelying hip abd Side bilateral Equipment Used green band for clams, none for straight leg abd Reps/Minutes 2x12 Comments second set straight leg hip abd Other Exercises Cat Cow Reps/Minutes x12 Comments manual assist for ant pelvic tilt, difficulty with extension ROM Therapeutic Activity Therapeutic Activity Get up/down from floor Reps/Minutes x10 Comments Pt moving from standing > squat > half kneel > tall kneel > side sit > sidelying > roll to supine then return in reverse to standing. Use mat in front of pt (to simulate her couch) in order for safety in standing and to decrease load on back at this time. Pt wanting to perform HEP on floor and mentioned concerns about moving to/from floor PT-OP-T Assessment and Plan Start: 04/16/23 11:48 Freq: Status: Active Protocol: Document 04/28/23 12:27 NM (Rec: 04/28/23 13:00 NM [id number]) Physical Therapy Assessment Goals 5 Impairment ROM, Pain Short Term Goal (STG) Pt will be able to don L shoes and socks with a pain or 4/10 or less in order to demonstrate improved hip and lumbar ROM. STG Duration 05/07/23 Frame Opener Goal (LTG) Pt will be able to don L shoes and socks in sitting with pain of 2/10 or less in order to demonstrate improved hip and lumbar ROM, pain management, and activity tolerance. LTG Duration 05/22/23 4 Impairment Strength, Endurance Short Term Goal (STG) Pt will be able to walk for at least 30 minutes with low back pain of 3/10 or less in order to improve activity tolerance. STG Duration 05/07/23 Frame Opener Goal (LTG) Pt will be able to ambulate for at least 60 minutes with low back pain of 2/10 or less in order to demonstrate improved hip strength and activity tolerance for shopping/errands. LTG Duration 05/22/23 3 Impairment Pain Short Term Goal (STG) Pt will improve Oswestry score by 6 points in order to demostrate improved pain management. STG Duration 05/07/23 Frame Opener Goal (LTG) Pt will improve Oswestry score by 12 points (MCID) in order to demonstrate improved pain management and activity tolerance during ADLs. LTG Duration 05/22/23 2 Impairment Strength, Balance Short Term Goal (STG) Pt will be able to perform 5/ 10 step ups on a 6 step with LLE leading and 1 or fewer UE for stabilization . STG Duration 05/07/23 Half-Way Goal (LTG) Pt will be able perform 8/10 step ups on a 6 step with LLE leading and no use of upper extremities for stabilization in order to demonstrate improved hip strength and single leg balance to safely use the stairs leading up the house and in the community. LTG Duration 05/22/23 1 Impairment Functional, ROM Short Term Goal (STG) Pt will improve lumbar flexion by 5 degrees. STG Duration 05/07/23 Half-Way Goal (LTG) Pt will improve lumbar flexion by 10 degrees in order to case picker objects from the ground without pain. LTG Duration 05/22/23 Assessment Summary Assessment Pt tolerated treatment well and has shown significant improvement in back/L hip pain since evaluation. She has been very compliant with HEP and is interesting in returning to more activity/ beginning a walking program. Began flexion-based exercises and stretching today; pt had no increased pain. Progressed hip strengthening and trunk extension strengthening. Will continue to progress as tolerated. Pt also was able to perform a supine figure 4 piriformis stretch today without pain in back or B hips ; as long as pt continues to improve, will attempt to perform in sitting as if donning shoes in order to work toward goals. Pt would benefit from skilled PT for continued trunk and core strengthening, ROM, pain management, and to improve activity tolerance. Physical Therapy Plan Frequency and Duration Frequency of Treatment 2x/Week Duration of treatment (weeks) 6 Plan of Care Start Date 04/17/23 Plan of Care End Date 05/22/23 Therapeutic Interventions Therapeutic Interventions Aquatic Therapy,Balance Training,Coordination Training ,Gait Training,Home Exercise Program,Joint Mobilizations, Manual Therapy,Neuromuscular Re-education,Patient/Caregiver Education,Soft Tissue Mobilization,Therapeutic Activities,Therapeutic Exercises Modalities Cold Pack/Ice Massage,Electric Stimulation,Hot Packs, Traction- Mechanical Next Visit Focus/Plan Next Note Type Treatment Note Next Visit Plan Progress hip and trunk strengthening, core.
--- NOTE | 2023-04-30 13:30 | PT.OTN ---
Current Diagnoses Pain in left hip (04/30/23) Lumbago with sciatica, left side (04/30/23) Muscle weakness (generalized) (04/30/23) Physical Therapy Treatment Note PT-OP-A Visit Information Start: 04/16/23 11:48 Freq: Status: Active Protocol: Document 04/30/23 12:21 NM (Rec: 04/30/23 12:58 NM [id number]) Out-Patient Physical Therapy Visit Information Visit Information Visit Type Treatment Note Visit Start Time 12:15 Visit Stop Time 13:00 Total Visit Minutes 45 Visit Number 4 PT-OP-B Current Condition Start: 04/16/23 11:48 Freq: Status: Active Protocol: Document 04/17/23 13:27 NM (Rec: 04/17/23 15:16 NM [id number]) Current Condition History of Current Condition Onset Date mid March 2023 Current Complaints Lower back pain radiating down the LLE, L hip pain History of Current Condition Pt reports lower back pain beginning in mid-March 2023 with no known onset. No prior history of back pain or back injuries. The back pain began as a banded pattern across the lower back, but is now localized to the L side ~L4/L5 with occasional radiation down the LLE to the calf. Pt was experiencing occasional numbness in L foot, but has not experienced any numbness for 3 days. Currently, pt describes back pain as a constant ache. Pain is best managed by tylenol and heat with occasional movement ( ambulation). Prior Treatments and Tests Pt had radiographs with Dr. Perera showing degenerative changes in L5-S1 and L4-L5. Future Testing and Treatments Planned Pt is planning to follow up with Dr. Perera. Treatment Goals Patient/Caregiver Goals Don shoes and socks without pain Walk for extended period of time for errands Bend over to garden Prior Functional Status Baseline Function- ADL's Independent Baseline Function- Mobility Independent Baseline Function- Gait No reported difficulty with ambulating Current Functional Impairments (Reported) Functional Limitations- ADL's Pt reports difficulty donning shoes/socks on L foot. She is unable to sit or walk for long periods of time. Pt also mentions that she is having difficulty with gardening due to pain from being in a flexed position, and she is unable to lift items from the the ground or a lower level. Functional Limitations- Mobility/Gait Difficulty with sitting for > 30 minutes without pain medication or heat. Pt has difficulty with initiating sit to stand transfers due to back/L hip pain. Pt is unable to rotate/roll during bed mobility and has to scoot up before sitting up to move to the edge of the bed. PT-OP-C Subjective Start: 04/16/23 11:48 Freq: Status: Active Protocol: Document 04/30/23 12:21 NM (Rec: 04/30/23 12:58 NM [id number]) OP-PT Subjective Patient Comments Patient Comments Pt reports that she has sore calves today, likely from the bridge exercise. Overall she is doing well with no back or hip pain. She is compliant with HEP. Patient Reported Progress Improving PT-OP-D Balance Start: 04/16/23 11:48 Freq: Status: Active Protocol: Document 04/17/23 13:27 NM (Rec: 04/17/23 15:16 NM [id number]) OP-PT Balance Assessment Standing Balance Static Standing Balance Ability Good Dynamic Standing Balance Ability Fair Device Used none Balance Tests Single Limb Standing Single Limb- Right 3 sec Single Limb- Left 0 sec Aleman Fall Scale Copyright Permission PT-OP-E Functional Tests Start: 04/16/23 11:48 Freq: Status: Active Protocol: Document 04/17/23 13:27 NM (Rec: 04/17/23 15:16 NM [id number]) Functional Tests Five Times Sit to Stand Test Score 20 seconds Comments pain with initial sit to stands, but pain decreases with repetitive motion Timed Up and Go (TUG) Score 6 seconds Comments turned L TUG Impairment Rating 0% Impaired (Score 10) PT-OP-F Manual Assessment Start: 04/16/23 11:48 Freq: Status: Active Protocol: Document 04/17/23 13:27 NM (Rec: 04/17/23 15:16 NM [id number]) Manual Assessments Joint Mobility Assessment Joint Mobility Assessment PA springing to lumbar spine ( L1-LS2): end feels are springy and pain is not provoked. Hip mobility assessed: full B hip ROM, normal end feels; no pain provoked SI Joint PA springing: normal end feel, no pain provoked PT-OP-G Mobility & Gait Start: 04/16/23 11:48 Freq: Status: Active Protocol: Document 04/17/23 13:27 NM (Rec: 04/17/23 15:16 NM [id number]) OP Mobility Evaluation Bed Mobility Rolling Unable due to pain Supine to and from Sit Independent but with difficulty due to pain; has to scoot up in the bed to sit up and only gets out on the L side of the bed OP Gait Assessment Gait Gait Assistance Required: Independent Assistive Devices Assistive Device None Gait Deviations General Gait Pattern Antalgic,Flexed Trunk Factors Limiting Gait Function Factors Limiting Gait Function Limited Range of Motion,Pain Comments Gait Comments Upon initially moving from sit to stand, pt demonstrates unsteadiness and will reach for an object to steady; able to ambulate independently with antalgic gait, flexed trunk and knees to without loss of balance. PT-OP-J Posture/Palpation/Skin Start: 04/16/23 11:48 Freq: Status: Active Protocol: Document 04/17/23 13:27 NM (Rec: 04/17/23 15:16 NM [id number]) Posture Evaluation Position Standing Evaluation View Lateral Head/C-Spine Posture Flexed,Side Bent Right L-Spine Posture Decreased Lordosis Shoulder Posture (L) Forward,(R) Forward Hip Posture (L) Externally Rotated,(R) Externally Rotated Palpation Assessment Location L hip Palpation Location lateral hip Palpation Details No tenderness, no edema, no abnormal findings Paraspinals Palpation Findings Tenderness Palpation Details Tenderness around L L4-S2, but does not evoke symptoms. No muscle guarding PT-OP-K Range of Motion Start: 04/16/23 11:48 Freq: Status: Active Protocol: Document 04/17/23 13:27 NM (Rec: 04/17/23 15:16 NM [id number]) Lumbar Spine Range of Motion Lumbar Spine Active Degrees Testing Position Standing Flexion 50 Extension 20 Lateral Flexion Left 10 Lateral Flexion Right 20 ROM Limitations Pain Comments All active motions are limited due to pain, but primarily flexion and L rotation. L rot: 3 R rot: 5 Hip Goniometric Range of Motion Hip Left Hip ROM WFL Yes Testing Position Supine Right Hip ROM WFL Yes Testing Position Supine Hip ROM Limitations Hip ROM Limitations Pain Comments No pain provocation in B hips or back with hip movement in supine. Pain only in L hip external rotation in sitting. PT-OP-L Special Tests Start: 04/16/23 11:48 Freq: Status: Active Protocol: Document 04/17/23 13:27 NM (Rec: 04/17/23 15:16 NM [id number]) Special Tests Lumbar Spine Special Tests Yo/Quadrant Test Results negative Comments No symptom provocation in ext/ SB/rot on either side SIJ Cluster Test Results negative Comments No symptom provocation w B anterior distraction, sacral thrust, compression Straight Leg Raise Test Results Negative Comments No symptom provocation Prone Press Up Test Results Positive Comments Relieved back pain Standing Flexion Test Results 13 from ground Comments provokes back pain PT-OP-M Strength Start: 04/16/23 11:48 Freq: Status: Active Protocol: Document 04/17/23 13:27 NM (Rec: 04/17/23 15:16 NM [id number]) Trunk Strength Trunk Manual Muscle Testing Testing Position standing Flexion 4- Good- Extension 4- Good- Rotation Left 3+ Fair+ Rotation Right 4 Good Lateral Flexion Left 3+ Fair+ Lateral Flexion Right 4 Good Core Stabilization Unable to perform sitting up motion during bed mobility without use of BUE, difficulty maintaining stable trunk while in quadruped Comments Poor core stabilization without compensation (hip or shoulder rotation) Hip Strength Hip Manual Muscle Testing Left Flexion (L2) 4- Good- Extension (S1) 4- Good- Abduction 3+ Fair+ Adduction 4- Good- External Rotation 3+ Fair+ Internal Rotation 3+ Fair+ Comments No pain provocation in hips or low back Right Flexion (L2) 4 Good Extension (S1) 4 Good Abduction 4- Good- Adduction 4 Good External Rotation 3+ Fair+ Internal Rotation 3+ Fair+ Comments No pain provocation in hips or low back PT-OP-Q Treatments Start: 04/16/23 11:48 Freq: Status: Active Protocol: Document 04/30/23 12:21 NM (Rec: 04/30/23 12:58 NM [id number]) Therapeutic Exercises Supine Exercises Dickson Stretch Side bilateral Reps/Minutes 2x30 Figure four Supine Exercise Name cross leg piriformis- trialed today Side bilateral Reps/Minutes 1x60 Comments no hip pain; demo'd in actively in sitting today with no hip pain TA activation Supine Exercise Name 1. Dying bug Sidelying Exercises Sitting figure 4 Sidelying Exercise Name trialed Side bilateral Reps/Minutes 30 Comments no pain Standing Exercises Hip hinge Side bilateral Equipment Used wall Reps/Minutes 2x10 Comments manual assist for hinge initially, cue to touch wall with bottom Calf stretch Side bilateral Equipment Used JORDAN Reps/Minutes 2x30 Other Exercises Quadruped Other Exercise Name 1. donkey kicks, 2. fire hydrant, 3. bird dog-trialed Side bilateral Reps/Minutes 2x15 ea Comments cues to prevent hip rot PT-OP-T Assessment and Plan Start: 04/16/23 11:48 Freq: Status: Active Protocol: Document 04/30/23 12:21 NM (Rec: 04/30/23 12:58 NM [id number]) Physical Therapy Assessment Impairments Impairments Activity Tolerance,Balance, Functional Activities, Functional Mobility,Gait,Pain, Posture,ROM,Soft Tissue Mobility,Strength Goals 5 Impairment ROM, Pain Short Term Goal (STG) Pt will be able to don L shoes and socks with a pain or 4/10 or less in order to demonstrate improved hip and lumbar ROM. STG Duration 05/07/23 Usp Goal (LTG) Pt will be able to don L shoes and socks in sitting with pain of 2/10 or less in order to demonstrate improved hip and lumbar ROM, pain management, and activity tolerance. LTG Duration 05/22/23 4 Impairment Strength, Endurance Short Term Goal (STG) Pt will be able to walk for at least 30 minutes with low back pain of 3/10 or less in order to improve activity tolerance. STG Duration 05/07/23 Usp Goal (LTG) Pt will be able to ambulate for at least 60 minutes with low back pain of 2/10 or less in order to demonstrate improved hip strength and activity tolerance for shopping/errands. LTG Duration 05/22/23 3 Impairment Pain Short Term Goal (STG) Pt will improve Oswestry score by 6 points in order to demostrate improved pain management. STG Duration 05/07/23 Furniture Fabricator Goal (LTG) Pt will improve Oswestry score by 12 points (MCID) in order to demonstrate improved pain management and activity tolerance during ADLs. LTG Duration 05/22/23 2 Impairment Strength, Balance Short Term Goal (STG) Pt will be able to perform 5/ 10 step ups on a 6 step with LLE leading and 1 or fewer UE for stabilization . STG Duration 05/07/23 Usp Goal (LTG) Pt will be able perform 8/10 step ups on a 6 step with LLE leading and no use of upper extremities for stabilization in order to demonstrate improved hip strength and single leg balance to safely use the stairs leading up the house and in the community. LTG Duration 05/22/23 1 Impairment Functional, ROM Short Term Goal (STG) Pt will improve lumbar flexion by 5 degrees. STG Duration 05/07/23 Usp Goal (LTG) Pt will improve lumbar flexion by 10 degrees in order to pickler helper objects from the ground without pain. LTG Duration 05/22/23 Assessment Summary Assessment Pt tolerated well and continues to demo improvement in exercise tolerance in addition to symptom management . Progressed into more lumbar flexion-based activities today , including hip hinge against the wall and seated lumbar flexion to pickler helper a ball from the ground. Initiated hip hinge using wall as tactile cue. She required moderate cues for execution and manual assist for hinge at initial reps; no symptoms reported and will continue to progress as tolerated. Today, pt is able to put on shoes while seated in hip ER, which she was unable to do at the initial evaluation. Pt would benefit from skilled PT to continue to address impairments in hip/ core/strength, mobility, and to continue to improve activity tolerance for PLOF. Physical Therapy Plan Frequency and Duration Frequency of Treatment 2x/Week Duration of treatment (weeks) 6 Plan of Care Start Date 04/17/23 Plan of Care End Date 05/22/23 Therapeutic Interventions Therapeutic Interventions Aquatic Therapy,Balance Training,Coordination Training ,Gait Training,Home Exercise Program,Joint Mobilizations, Manual Therapy,Neuromuscular Re-education,Patient/Caregiver Education,Soft Tissue Mobilization,Therapeutic Activities,Therapeutic Exercises Modalities Cold Pack/Ice Massage,Electric Stimulation,Hot Packs, Traction- Mechanical Next Visit Focus/Plan Next Note Type Treatment Note Next Visit Plan Look at goals to determine what is met. Continue with hip hinge, core strengthening, hip/trunk strengthening and mobility. Intro squat and step ups
--- NOTE | 2023-05-19 15:32 | PT.OTN ---
Current Diagnoses Pain in left hip (05/19/23) Lumbago with sciatica, left side (05/19/23) Muscle weakness (generalized) (05/19/23) Physical Therapy Treatment Note PT-OP-A Visit Information Start: 04/16/23 11:48 Freq: Status: Active Protocol: Document 05/19/23 13:59 NM (Rec: 05/19/23 14:31 NM [id number]) Out-Patient Physical Therapy Visit Information Visit Information Visit Type Treatment Note Visit Note PN today Visit Start Time 13:45 Visit Stop Time 14:30 Total Visit Minutes 45 Visit Number 5 Evaluation Information Evaluation Date 04/17/23 PT-OP-B Current Condition Start: 04/16/23 11:48 Freq: Status: Active Protocol: Document 04/17/23 13:27 NM (Rec: 04/17/23 15:16 NM [id number]) Current Condition History of Current Condition Onset Date mid March 2023 Current Complaints Lower back pain radiating down the LLE, L hip pain History of Current Condition Pt reports lower back pain beginning in mid-March 2023 with no known onset. No prior history of back pain or back injuries. The back pain began as a banded pattern across the lower back, but is now localized to the L side ~L4/L5 with occasional radiation down the LLE to the calf. Pt was experiencing occasional numbness in L foot, but has not experienced any numbness for 3 days. Currently, pt describes back pain as a constant ache. Pain is best managed by tylenol and heat with occasional movement ( ambulation). Prior Treatments and Tests Pt had radiographs with Dr. Perera showing degenerative changes in L5-S1 and L4-L5. Future Testing and Treatments Planned Pt is planning to follow up with Dr. Perera. Treatment Goals Patient/Caregiver Goals Don shoes and socks without pain Walk for extended period of time for errands Bend over to garden Prior Functional Status Baseline Function- ADL's Independent Baseline Function- Mobility Independent Baseline Function- Gait No reported difficulty with ambulating Current Functional Impairments (Reported) Functional Limitations- ADL's Pt reports difficulty donning shoes/socks on L foot. She is unable to sit or walk for long periods of time. Pt also mentions that she is having difficulty with gardening due to pain from being in a flexed position, and she is unable to lift items from the the ground or a lower level. Functional Limitations- Mobility/Gait Difficulty with sitting for > 30 minutes without pain medication or heat. Pt has difficulty with initiating sit to stand transfers due to back/L hip pain. Pt is unable to rotate/roll during bed mobility and has to scoot up before sitting up to move to the edge of the bed. PT-OP-C Subjective Start: 04/16/23 11:48 Freq: Status: Active Protocol: Document 05/19/23 13:59 NM (Rec: 05/19/23 14:31 NM [id number]) OP-PT Subjective Patient Comments Patient Comments Pt reports that she is doing well and feels better after last week (cold). She is doing well with exercises, no complaints of pain. She has been walking every day. Patient Reported Progress Improving PT-OP-D Balance Start: 04/16/23 11:48 Freq: Status: Active Protocol: Document 04/17/23 13:27 NM (Rec: 04/17/23 15:16 NM [id number]) OP-PT Balance Assessment Standing Balance Static Standing Balance Ability Good Dynamic Standing Balance Ability Fair Device Used none Balance Tests Single Limb Standing Single Limb- Right 3 sec Single Limb- Left 0 sec Aleman Fall Scale Copyright Permission PT-OP-E Functional Tests Start: 04/16/23 11:48 Freq: Status: Active Protocol: Document 04/17/23 13:27 NM (Rec: 04/17/23 15:16 NM [id number]) Functional Tests Five Times Sit to Stand Test Score 20 seconds Comments pain with initial sit to stands, but pain decreases with repetitive motion Timed Up and Go (TUG) Score 6 seconds Comments turned L TUG Impairment Rating 0% Impaired (Score 10) PT-OP-F Manual Assessment Start: 04/16/23 11:48 Freq: Status: Active Protocol: Document 04/17/23 13:27 NM (Rec: 04/17/23 15:16 NM [id number]) Manual Assessments Joint Mobility Assessment Joint Mobility Assessment PA springing to lumbar spine ( L1-LS2): end feels are springy and pain is not provoked. Hip mobility assessed: full B hip ROM, normal end feels; no pain provoked SI Joint PA springing: normal end feel, no pain provoked PT-OP-G Mobility & Gait Start: 04/16/23 11:48 Freq: Status: Active Protocol: Document 04/17/23 13:27 NM (Rec: 04/17/23 15:16 NM [id number]) OP Mobility Evaluation Bed Mobility Rolling Unable due to pain Supine to and from Sit Independent but with difficulty due to pain; has to scoot up in the bed to sit up and only gets out on the L side of the bed OP Gait Assessment Gait Gait Assistance Required: Independent Assistive Devices Assistive Device None Gait Deviations General Gait Pattern Antalgic,Flexed Trunk Factors Limiting Gait Function Factors Limiting Gait Function Limited Range of Motion,Pain Comments Gait Comments Upon initially moving from sit to stand, pt demonstrates unsteadiness and will reach for an object to steady; able to ambulate independently with antalgic gait, flexed trunk and knees to without loss of balance. PT-OP-J Posture/Palpation/Skin Start: 04/16/23 11:48 Freq: Status: Active Protocol: Document 04/17/23 13:27 NM (Rec: 04/17/23 15:16 NM [id number]) Posture Evaluation Position Standing Evaluation View Lateral Head/C-Spine Posture Flexed,Side Bent Right L-Spine Posture Decreased Lordosis Shoulder Posture (L) Forward,(R) Forward Hip Posture (L) Externally Rotated,(R) Externally Rotated Palpation Assessment Location L hip Palpation Location lateral hip Palpation Details No tenderness, no edema, no abnormal findings Paraspinals Palpation Findings Tenderness Palpation Details Tenderness around L L4-S2, but does not evoke symptoms. No muscle guarding PT-OP-K Range of Motion Start: 04/16/23 11:48 Freq: Status: Active Protocol: Document 04/17/23 13:27 NM (Rec: 04/17/23 15:16 NM [id number]) Lumbar Spine Range of Motion Lumbar Spine Active Degrees Testing Position Standing Flexion 50 Extension 20 Lateral Flexion Left 10 Lateral Flexion Right 20 ROM Limitations Pain Comments All active motions are limited due to pain, but primarily flexion and L rotation. L rot: 3 R rot: 5 Hip Goniometric Range of Motion Hip Left Hip ROM WFL Yes Testing Position Supine Right Hip ROM WFL Yes Testing Position Supine Hip ROM Limitations Hip ROM Limitations Pain Comments No pain provocation in B hips or back with hip movement in supine. Pain only in L hip external rotation in sitting. PT-OP-L Special Tests Start: 04/16/23 11:48 Freq: Status: Active Protocol: Document 04/17/23 13:27 NM (Rec: 04/17/23 15:16 NM [id number]) Special Tests Lumbar Spine Special Tests Yo/Quadrant Test Results negative Comments No symptom provocation in ext/ SB/rot on either side SIJ Cluster Test Results negative Comments No symptom provocation w B anterior distraction, sacral thrust, compression Straight Leg Raise Test Results Negative Comments No symptom provocation Prone Press Up Test Results Positive Comments Relieved back pain Standing Flexion Test Results 13 from ground Comments provokes back pain PT-OP-M Strength Start: 04/16/23 11:48 Freq: Status: Active Protocol: Document 04/17/23 13:27 NM (Rec: 04/17/23 15:16 NM [id number]) Trunk Strength Trunk Manual Muscle Testing Testing Position standing Flexion 4- Good- Extension 4- Good- Rotation Left 3+ Fair+ Rotation Right 4 Good Lateral Flexion Left 3+ Fair+ Lateral Flexion Right 4 Good Core Stabilization Unable to perform sitting up motion during bed mobility without use of BUE, difficulty maintaining stable trunk while in quadruped Comments Poor core stabilization without compensation (hip or shoulder rotation) Hip Strength Hip Manual Muscle Testing Left Flexion (L2) 4- Good- Extension (S1) 4- Good- Abduction 3+ Fair+ Adduction 4- Good- External Rotation 3+ Fair+ Internal Rotation 3+ Fair+ Comments No pain provocation in hips or low back Right Flexion (L2) 4 Good Extension (S1) 4 Good Abduction 4- Good- Adduction 4 Good External Rotation 3+ Fair+ Internal Rotation 3+ Fair+ Comments No pain provocation in hips or low back PT-OP-Q Treatments Start: 04/16/23 11:48 Freq: Status: Active Protocol: Document 05/19/23 13:59 NM (Rec: 05/19/23 14:31 NM [id number]) Therapeutic Exercises Supine Exercises Dickson Stretch Side bilateral Reps/Minutes 1x30 Figure four Supine Exercise Name demo'd actively in sitting, no pain Side bilateral Reps/Minutes 1x30 Standing Exercises Hip hinge Side bilateral Equipment Used wall behind back, dowel in hands Reps/Minutes 2x10 Comments attempted 4# weight but mid back pain, no LBP Other Exercises Squat Other Exercise 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 thread the needle, 2. hip CARs Side bilateral Reps/Minutes 2x10 Comments for improved thoracic mob, hip mob PT-OP-T Assessment and Plan Start: 04/16/23 11:48 Freq: Status: Active Protocol: Document 05/19/23 13:59 NM (Rec: 05/19/23 14:31 NM [id number]) Physical Therapy Assessment Rehab Potential Rehabilitation Potential Good Evaluation Complexity Number of Personal Factors/Comorbidities 3 or More Number of Body Systems Impaired 1-2 Clinical Presentation at Evaluation Evolving Impairments Impairments Activity Tolerance,Balance, Functional Activities, Functional Mobility,Gait,Pain, Posture,ROM,Soft Tissue Mobility,Strength Goals 5 Impairment ROM, Pain Short Term Goal (STG) Pt will be able to don L shoes and socks with a pain or 4/10 or less in order to demonstrate improved hip and lumbar ROM. STG Duration 05/07/23 MET Senior Care Goal (LTG) Pt will be able to don L shoes and socks in sitting with pain of 2/10 or less in order to demonstrate improved hip and lumbar ROM, pain management, and activity tolerance. LTG Duration 05/22/23 MET 4 Impairment Strength, Endurance Short Term Goal (STG) Pt will be able to walk for at least 30 minutes with low back pain of 3/10 or less in order to improve activity tolerance. STG Duration 05/07/23 MET Podiatric Medicine Professor Goal (LTG) Pt will be able to ambulate for at least 60 minutes with low back pain of 2/10 or less in order to demonstrate improved hip strength and activity tolerance for shopping/errands. LTG Duration 05/22/23 MET 3 Impairment Pain Short Term Goal (STG) Pt will improve Oswestry score by 6 points in order to demostrate improved pain management. STG Duration 05/07/23 MET [facility] Goal (LTG) Pt will improve Oswestry score by 12 points (MCID) in order to demonstrate improved pain management and activity tolerance during ADLs. LTG Duration 05/22/23 MET () 2 Impairment Strength, Balance Short Term Goal (STG) Pt will be able to perform 5/ 10 step ups on a 6 step with LLE leading and 1 or fewer UE for stabilization . STG Duration 05/07/23 MET Podiatric Medicine Professor Goal (LTG) Pt will be able perform 8/10 step ups on a 6 step with LLE leading and no use of upper extremities for stabilization in order to demonstrate improved hip strength and single leg balance to safely use the stairs leading up the house and in the community. LTG Duration 05/22/23 MET 1 Impairment Functional, ROM Short Term Goal (STG) Pt will improve lumbar flexion by 5 degrees. 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 LTG Duration 05/22/23 MET Assessment Summary Assessment Pt tolerated well and continues to demo improvement in exercise tolerance in addition to symptom management . Pt has some mid-thoracic pain with hip hinge, which is resolved with thoracic rotation mobilization. 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 Initiated hip hinge using wall as tactile cue. She required moderate cues for execution and manual assist for hinge at initial reps; no symptoms reported and will continue to progress as tolerated. Continued with hip hinge and initiated squats today to emphasize glute strengthening and progress into flexion bias. Pt is progressing well and has met all goals. PT and pt discussed POC and decided that pt will discharge after next visit with HEP. Pt would benefit from skilled PT to continue to address impairments in hip/ core/strength, mobility, and to continue to improve activity tolerance for PLOF. Physical Therapy Plan Frequency and Duration Frequency of Treatment 2x/Week Duration of treatment (weeks) 6 Plan of Care Start Date 04/17/23 Plan of Care End Date 05/22/23 Therapeutic Interventions Therapeutic Interventions Aquatic Therapy,Balance Training,Coordination Training ,Gait Training,Home Exercise Program,Joint Mobilizations, Manual Therapy,Neuromuscular Re-education,Patient/Caregiver Education,Soft Tissue Mobilization,Therapeutic Activities,Therapeutic Exercises Modalities Cold Pack/Ice Massage,Electric Stimulation,Hot Packs, Traction- Mechanical Next Visit Focus/Plan Next Note Type Discharge Summary Next Visit Plan Continue with hip hinge, core strengthening, hip/trunk strengthening and mobility, squat, step up. HEP for discharge
--- NOTE | 2023-05-19 15:41 | PT.OPPN ---
Current Diagnoses Pain in left hip (05/19/23) Lumbago with sciatica, left side (05/19/23) Muscle weakness (generalized) (05/19/23) Physical Therapy Progress Note PT-OP-A Visit Information Start: 04/16/23 11:48 Freq: Status: Active Protocol: Document 05/19/23 13:59 NM (Rec: 05/19/23 15:41 NM [id number]) Out-Patient Physical Therapy Visit Information Visit Information Visit Type Progress Note Visit Start Time 13:45 Visit Stop Time 14:30 Total Visit Minutes 45 Visit Number 5 Evaluation Information Evaluation Date 04/17/23 PT-OP-B Current Condition Start: 04/16/23 11:48 Freq: Status: Active Protocol: Document 04/17/23 13:27 NM (Rec: 04/17/23 15:16 NM [id number]) Current Condition History of Current Condition Onset Date mid March 2023 Current Complaints Lower back pain radiating down the LLE, L hip pain History of Current Condition Pt reports lower back pain beginning in mid-March 2023 with no known onset. No prior history of back pain or back injuries. The back pain began as a banded pattern across the lower back, but is now localized to the L side ~L4/L5 with occasional radiation down the LLE to the calf. Pt was experiencing occasional numbness in L foot, but has not experienced any numbness for 3 days. Currently, pt describes back pain as a constant ache. Pain is best managed by tylenol and heat with occasional movement ( ambulation). Prior Treatments and Tests Pt had radiographs with Dr. Perera showing degenerative changes in L5-S1 and L4-L5. Future Testing and Treatments Planned Pt is planning to follow up with Dr. Perera. Treatment Goals Patient/Caregiver Goals Don shoes and socks without pain Walk for extended period of time for errands Bend over to garden Prior Functional Status Baseline Function- ADL's Independent Baseline Function- Mobility Independent Baseline Function- Gait No reported difficulty with ambulating Current Functional Impairments (Reported) Functional Limitations- ADL's Pt reports difficulty donning shoes/socks on L foot. She is unable to sit or walk for long periods of time. Pt also mentions that she is having difficulty with gardening due to pain from being in a flexed position, and she is unable to lift items from the the ground or a lower level. Functional Limitations- Mobility/Gait Difficulty with sitting for > 30 minutes without pain medication or heat. Pt has difficulty with initiating sit to stand transfers due to back/L hip pain. Pt is unable to rotate/roll during bed mobility and has to scoot up before sitting up to move to the edge of the bed. PT-OP-C Subjective Start: 04/16/23 11:48 Freq: Status: Active Protocol: Document 05/19/23 13:59 NM (Rec: 05/19/23 15:41 NM [id number]) OP-PT Subjective Patient Comments Patient Comments Pt reports that she is doing well and feels better after last week (cold). She is doing well with exercises, no complaints of pain. She has been walking every day. Patient Reported Progress Improving PT-OP-D Balance Start: 04/16/23 11:48 Freq: Status: Active Protocol: Document 04/17/23 13:27 NM (Rec: 04/17/23 15:16 NM [id number]) OP-PT Balance Assessment Standing Balance Static Standing Balance Ability Good Dynamic Standing Balance Ability Fair Device Used none Balance Tests Single Limb Standing Single Limb- Right 3 sec Single Limb- Left 0 sec Aleman Fall Scale Copyright Permission Ash GALLARDO, Ash RM, Ruben SJ. Development of a scale to identify the fall- prone patient. Can J Aging 1989;8;366-7. Gaetano Aleman (2009). Preventing patient falls. (2nd ed). Boyle: Cee. PT-OP-E Functional Tests Start: 04/16/23 11:48 Freq: Status: Active Protocol: Document 04/17/23 13:27 NM (Rec: 04/17/23 15:16 NM [id number]) Functional Tests Five Times Sit to Stand Test Score 20 seconds Comments pain with initial sit to stands, but pain decreases with repetitive motion Timed Up and Go (TUG) Score 6 seconds Comments turned L TUG Impairment Rating 0% Impaired (Score 10) PT-OP-F Manual Assessment Start: 04/16/23 11:48 Freq: Status: Active Protocol: Document 04/17/23 13:27 NM (Rec: 04/17/23 15:16 NM [id number]) Manual Assessments Joint Mobility Assessment Joint Mobility Assessment PA springing to lumbar spine ( L1-LS2): end feels are springy and pain is not provoked. Hip mobility assessed: full B hip ROM, normal end feels; no pain provoked SI Joint PA springing: normal end feel, no pain provoked PT-OP-G Mobility & Gait Start: 04/16/23 11:48 Freq: Status: Active Protocol: Document 05/19/23 13:59 NM (Rec: 05/19/23 15:41 NM [id number]) OP Gait Assessment Comments Gait Comments 05/19/23: Gait is no longer antalgic and demos more normal mechanics. No lateral trunk lean PT-OP-J Posture/Palpation/Skin Start: 04/16/23 11:48 Freq: Status: Active Protocol: Document 04/17/23 13:27 NM (Rec: 04/17/23 15:16 NM [id number]) Posture Evaluation Position Standing Evaluation View Lateral Head/C-Spine Posture Flexed,Side Bent Right L-Spine Posture Decreased Lordosis Shoulder Posture (L) Forward,(R) Forward Hip Posture (L) Externally Rotated,(R) Externally Rotated Palpation Assessment Location L hip Palpation Location lateral hip Palpation Details No tenderness, no edema, no abnormal findings Paraspinals Palpation Findings Tenderness Palpation Details Tenderness around L L4-S2, but does not evoke symptoms. No muscle guarding PT-OP-K Range of Motion Start: 04/16/23 11:48 Freq: Status: Active Protocol: Document 05/19/23 13:59 NM (Rec: 05/19/23 15:41 NM [id number]) Lumbar Spine Range of Motion Lumbar Spine Active Degrees Comments Updated 05/19/23: Flex 60 deg (to floor, no pain ) Ext 20 deg Lateral flex 20 deg ea direction PT-OP-L Special Tests Start: 04/16/23 11:48 Freq: Status: Active Protocol: Document 04/17/23 13:27 NM (Rec: 04/17/23 15:16 NM [id number]) Special Tests Lumbar Spine Special Tests Yo/Quadrant Test Results negative Comments No symptom provocation in ext/ SB/rot on either side SIJ Cluster Test Results negative Comments No symptom provocation w B anterior distraction, sacral thrust, compression Straight Leg Raise Test Results Negative Comments No symptom provocation Prone Press Up Test Results Positive Comments Relieved back pain Standing Flexion Test Results 13 from ground Comments provokes back pain PT-OP-M Strength Start: 04/16/23 11:48 Freq: Status: Active Protocol: Document 04/17/23 13:27 NM (Rec: 04/17/23 15:16 NM [id number]) Trunk Strength Trunk Manual Muscle Testing Testing Position standing Flexion 4- Good- Extension 4- Good- Rotation Left 3+ Fair+ Rotation Right 4 Good Lateral Flexion Left 3+ Fair+ Lateral Flexion Right 4 Good Core Stabilization Unable to perform sitting up motion during bed mobility without use of BUE, difficulty maintaining stable trunk while in quadruped Comments Poor core stabilization without compensation (hip or shoulder rotation) Hip Strength Hip Manual Muscle Testing Left Flexion (L2) 4- Good- Extension (S1) 4- Good- Abduction 3+ Fair+ Adduction 4- Good- External Rotation 3+ Fair+ Internal Rotation 3+ Fair+ Comments No pain provocation in hips or low back Right Flexion (L2) 4 Good Extension (S1) 4 Good Abduction 4- Good- Adduction 4 Good External Rotation 3+ Fair+ Internal Rotation 3+ Fair+ Comments No pain provocation in hips or low back PT-OP-T Assessment and Plan Start: 04/16/23 11:48 Freq: Status: Active Protocol: Document 05/19/23 13:59 NM (Rec: 05/19/23 15:41 NM [id number]) Physical Therapy Assessment Rehab Potential Rehabilitation Potential Good Evaluation Complexity Number of Personal Factors/Comorbidities 3 or More Number of Body Systems Impaired 1-2 Clinical Presentation at Evaluation Evolving Impairments Impairments Activity Tolerance,Balance, Functional Activities, Functional Mobility,Gait,Pain, Posture,ROM,Soft Tissue Mobility,Strength Goals 5 Impairment ROM, Pain Short Term Goal (STG) Pt will be able to don L shoes and socks with a pain or 4/10 or less in order to demonstrate improved hip and lumbar ROM. STG Duration 05/07/23 MET Assisted Goal (LTG) Pt will be able to don L shoes and socks in sitting with pain of 2/10 or less in order to demonstrate improved hip and lumbar ROM, pain management, and activity tolerance. LTG Duration 05/22/23 MET 4 Impairment Strength, Endurance Short Term Goal (STG) Pt will be able to walk for at least 30 minutes with low back pain of 3/10 or less in order to improve activity tolerance. STG Duration 05/07/23 MET Assisted Goal (LTG) Pt will be able to ambulate for at least 60 minutes with low back pain of 2/10 or less in order to demonstrate improved hip strength and activity tolerance for shopping/errands. LTG Duration 05/22/23 MET 3 Impairment Pain Short Term Goal (STG) Pt will improve Oswestry score by 6 points in order to demostrate improved pain management. STG Duration 05/07/23 MET Marketing Planning Manager Goal (LTG) Pt will improve Oswestry score by 12 points (MCID) in order to demonstrate improved pain management and activity tolerance during ADLs. LTG Duration 05/22/23 MET (1/50) 2 Impairment Strength, Balance Short Term Goal (STG) Pt will be able to perform 5/ 10 step ups on a 6 step with LLE leading and 1 or fewer UE for stabilization . STG Duration 05/07/23 MET Assisted Goal (LTG) Pt will be able perform 8/10 step ups on a 6 step with LLE leading and no use of upper extremities for stabilization in order to demonstrate improved hip strength and single leg balance to safely use the stairs leading up the house and in the community. LTG Duration 05/22/23 MET 1 Impairment Functional, ROM Short Term Goal (STG) Pt will improve lumbar flexion by 5 degrees. STG Duration 05/07/23 MET Marketing Planning Manager Goal (LTG) Pt will improve lumbar flexion by 10 degrees in order to fish bait picker objects from the ground without pain. LTG Duration 05/22/23 MET Assessment Summary Assessment Pt continues to demo improvement in exercise tolerance and symptom management since IE. Pt is progressing well and has met of her all goals. Her new Oswestry is 1/50, indicating better ADL tolerance. She has normal lumbar spine ROM and no longer has pain with movements. She is able to participate in all ADLs and recreational activities without restriction. PT and pt discussed POC and decided that pt will discharge after next visit with HEP. Pt would benefit from skilled PT to address impairments in hip/ core/strength, mobility, and to continue to improve activity tolerance for PLOF. Physical Therapy Plan Frequency and Duration Frequency of Treatment 2x/Week Duration of treatment (weeks) 6 Plan of Care Start Date 04/17/23 Plan of Care End Date 05/22/23 Therapeutic Interventions Therapeutic Interventions Aquatic Therapy,Balance Training,Coordination Training ,Gait Training,Home Exercise Program,Joint Mobilizations, Manual Therapy,Neuromuscular Re-education,Patient/Caregiver Education,Soft Tissue Mobilization,Therapeutic Activities,Therapeutic Exercises Modalities Cold Pack/Ice Massage,Electric Stimulation,Hot Packs, Traction- Mechanical Next Visit Focus/Plan Next Note Type Discharge Summary Next Visit Plan Continue with hip hinge, core strengthening, hip/trunk strengthening and mobility, squat, step up. HEP for discharge
--- NOTE | 2023-05-21 14:20 | PT.OTN ---
Current Diagnoses Pain in left hip (05/21/23) Lumbago with sciatica, left side (05/21/23) Muscle weakness (generalized) (05/21/23) Physical Therapy Treatment Note PT-OP-A Visit Information Start: 04/16/23 11:48 Freq: Status: Active Protocol: Document 05/21/23 13:50 NM (Rec: 05/21/23 14:20 NM [id number]) Out-Patient Physical Therapy Visit Information Visit Information Visit Type Treatment Note Visit Note DC today Visit Start Time 13:47 Visit Stop Time 14:20 Total Visit Minutes 33 Visit Number 6 Evaluation Information Evaluation Date 04/17/23 PT-OP-B Current Condition Start: 04/16/23 11:48 Freq: Status: Active Protocol: Document 04/17/23 13:27 NM (Rec: 04/17/23 15:16 NM [id number]) Current Condition History of Current Condition Onset Date mid March 2023 Current Complaints Lower back pain radiating down the LLE, L hip pain History of Current Condition Pt reports lower back pain beginning in mid-March 2023 with no known onset. No prior history of back pain or back injuries. The back pain began as a banded pattern across the lower back, but is now localized to the L side ~L4/L5 with occasional radiation down the LLE to the calf. Pt was experiencing occasional numbness in L foot, but has not experienced any numbness for 3 days. Currently, pt describes back pain as a constant ache. Pain is best managed by tylenol and heat with occasional movement ( ambulation). Prior Treatments and Tests Pt had radiographs with Dr. Perera showing degenerative changes in L5-S1 and L4-L5. Future Testing and Treatments Planned Pt is planning to follow up with Dr. Perera. Treatment Goals Patient/Caregiver Goals Don shoes and socks without pain Walk for extended period of time for errands Bend over to garden Prior Functional Status Baseline Function- ADL's Independent Baseline Function- Mobility Independent Baseline Function- Gait No reported difficulty with ambulating Current Functional Impairments (Reported) Functional Limitations- ADL's Pt reports difficulty donning shoes/socks on L foot. She is unable to sit or walk for long periods of time. Pt also mentions that she is having difficulty with gardening due to pain from being in a flexed position, and she is unable to lift items from the the ground or a lower level. Functional Limitations- Mobility/Gait Difficulty with sitting for > 30 minutes without pain medication or heat. Pt has difficulty with initiating sit to stand transfers due to back/L hip pain. Pt is unable to rotate/roll during bed mobility and has to scoot up before sitting up to move to the edge of the bed. PT-OP-C Subjective Start: 04/16/23 11:48 Freq: Status: Active Protocol: Document 05/21/23 13:50 NM (Rec: 05/21/23 14:20 NM [id number]) OP-PT Subjective Patient Comments Patient Comments Pt reports that she is doing well. She has a mask today because she has been sneezing a lot, but she reports that she is not contagious. Pt has met all goals and is agreeable to discharge today. Patient Reported Progress Improving PT-OP-D Balance Start: 04/16/23 11:48 Freq: Status: Active Protocol: Document 04/17/23 13:27 NM (Rec: 04/17/23 15:16 NM [id number]) OP-PT Balance Assessment Standing Balance Static Standing Balance Ability Good Dynamic Standing Balance Ability Fair Device Used none Balance Tests Single Limb Standing Single Limb- Right 3 sec Single Limb- Left 0 sec Aleman Fall Scale Copyright Permission PT-OP-E Functional Tests Start: 04/16/23 11:48 Freq: Status: Active Protocol: Document 04/17/23 13:27 NM (Rec: 04/17/23 15:16 NM [id number]) Functional Tests Five Times Sit to Stand Test Score 20 seconds Comments pain with initial sit to stands, but pain decreases with repetitive motion Timed Up and Go (TUG) Score 6 seconds Comments turned L TUG Impairment Rating 0% Impaired (Score 10) PT-OP-F Manual Assessment Start: 04/16/23 11:48 Freq: Status: Active Protocol: Document 04/17/23 13:27 NM (Rec: 04/17/23 15:16 NM [id number]) Manual Assessments Joint Mobility Assessment Joint Mobility Assessment PA springing to lumbar spine ( L1-LS2): end feels are springy and pain is not provoked. Hip mobility assessed: full B hip ROM, normal end feels; no pain provoked SI Joint PA springing: normal end feel, no pain provoked PT-OP-G Mobility & Gait Start: 04/16/23 11:48 Freq: Status: Active Protocol: Document 05/19/23 13:59 NM (Rec: 05/19/23 15:41 NM [id number]) OP Gait Assessment Comments Gait Comments 05/19/23: Gait is no longer antalgic and demos more normal mechanics. No lateral trunk lean PT-OP-J Posture/Palpation/Skin Start: 04/16/23 11:48 Freq: Status: Active Protocol: Document 04/17/23 13:27 NM (Rec: 04/17/23 15:16 NM [id number]) Posture Evaluation Position Standing Evaluation View Lateral Head/C-Spine Posture Flexed,Side Bent Right L-Spine Posture Decreased Lordosis Shoulder Posture (L) Forward,(R) Forward Hip Posture (L) Externally Rotated,(R) Externally Rotated Palpation Assessment Location L hip Palpation Location lateral hip Palpation Details No tenderness, no edema, no abnormal findings Paraspinals Palpation Findings Tenderness Palpation Details Tenderness around L L4-S2, but does not evoke symptoms. No muscle guarding PT-OP-K Range of Motion Start: 04/16/23 11:48 Freq: Status: Active Protocol: Document 05/19/23 13:59 NM (Rec: 05/19/23 15:41 NM [id number]) Lumbar Spine Range of Motion Lumbar Spine Active Degrees Comments Updated 05/19/23: Flex 60 deg (to floor, no pain ) Ext 20 deg Lateral flex 20 deg ea direction PT-OP-L Special Tests Start: 04/16/23 11:48 Freq: Status: Active Protocol: Document 04/17/23 13:27 NM (Rec: 04/17/23 15:16 NM [id number]) Special Tests Lumbar Spine Special Tests Yo/Quadrant Test Results negative Comments No symptom provocation in ext/ SB/rot on either side SIJ Cluster Test Results negative Comments No symptom provocation w B anterior distraction, sacral thrust, compression Straight Leg Raise Test Results Negative Comments No symptom provocation Prone Press Up Test Results Positive Comments Relieved back pain Standing Flexion Test Results 13 from ground Comments provokes back pain PT-OP-M Strength Start: 04/16/23 11:48 Freq: Status: Active Protocol: Document 04/17/23 13:27 NM (Rec: 04/17/23 15:16 NM [id number]) Trunk Strength Trunk Manual Muscle Testing Testing Position standing Flexion 4- Good- Extension 4- Good- Rotation Left 3+ Fair+ Rotation Right 4 Good Lateral Flexion Left 3+ Fair+ Lateral Flexion Right 4 Good Core Stabilization Unable to perform sitting up motion during bed mobility without use of BUE, difficulty maintaining stable trunk while in quadruped Comments Poor core stabilization without compensation (hip or shoulder rotation) Hip Strength Hip Manual Muscle Testing Left Flexion (L2) 4- Good- Extension (S1) 4- Good- Abduction 3+ Fair+ Adduction 4- Good- External Rotation 3+ Fair+ Internal Rotation 3+ Fair+ Comments No pain provocation in hips or low back Right Flexion (L2) 4 Good Extension (S1) 4 Good Abduction 4- Good- Adduction 4 Good External Rotation 3+ Fair+ Internal Rotation 3+ Fair+ Comments No pain provocation in hips or low back PT-OP-Q Treatments Start: 04/16/23 11:48 Freq: Status: Active Protocol: Document 05/21/23 13:50 NM (Rec: 05/21/23 14:20 NM [id number]) Therapeutic Exercises Standing Exercises Hip hinge Standing Exercise Name HEP Side bilateral Resistance 5# Equipment Used 1st: dowel behind head, 2nd: dowel in front Reps/Minutes 2x10 ea Comments dowel behind head for back ext ; cues to retract scaps Other Exercises Pallof press Side bilateral Resistance [place] tb Reps/Minutes 30 ea direction Comments cues for core activation Squat Other Exercise Name HEP Side bilateral Resistance 10# tball Reps/Minutes 1x15 Comments chair behind for hip flex Onur curl Other Exercise Name for spinal flexion Side bilateral Resistance 5# db Reps/Minutes 1x10 Comments reviewed as part of HEP Quadruped Other Exercise Name thread the needle Side bilateral Reps/Minutes 1x10 Comments improved thoracic spine rotation Self-Care/Home Management Treatment Education Patient Education Home Exercise Program PT-OP-T Assessment and Plan Start: 04/16/23 11:48 Freq: Status: Active Protocol: Document 05/21/23 13:50 NM (Rec: 05/21/23 14:20 NM [id number]) Physical Therapy Assessment Rehab Potential Rehabilitation Potential Good Evaluation Complexity Number of Personal Factors/Comorbidities 3 or More Number of Body Systems Impaired 1-2 Clinical Presentation at Evaluation Evolving Impairments Impairments Activity Tolerance,Balance, Functional Activities, Functional Mobility,Gait,Pain, Posture,ROM,Soft Tissue Mobility,Strength Goals 5 Impairment ROM, Pain Short Term Goal (STG) Pt will be able to don L shoes and socks with a pain or 4/10 or less in order to demonstrate improved hip and lumbar ROM. STG Duration 05/07/23 MET Penitentiary Goal (LTG) Pt will be able to don L shoes and socks in sitting with pain of 2/10 or less in order to demonstrate improved hip and lumbar ROM, pain management, and activity tolerance. LTG Duration 05/22/23 MET 4 Impairment Strength, Endurance Short Term Goal (STG) Pt will be able to walk for at least 30 minutes with low back pain of 3/10 or less in order to improve activity tolerance. STG Duration 05/07/23 MET Penitentiary Goal (LTG) Pt will be able to ambulate for at least 60 minutes with low back pain of 2/10 or less in order to demonstrate improved hip strength and activity tolerance for shopping/errands. LTG Duration 05/22/23 MET 3 Impairment Pain Short Term Goal (STG) Pt will improve Oswestry score by 6 points in order to demostrate improved pain management. STG Duration 05/07/23 MET Voice Writing Reporter Goal (LTG) Pt will improve Oswestry score by 12 points (MCID) in order to demonstrate improved pain management and activity tolerance during ADLs. LTG Duration 05/22/23 MET () 2 Impairment Strength, Balance Short Term Goal (STG) Pt will be able to perform 5/ 10 step ups on a 6 step with LLE leading and 1 or fewer UE for stabilization . STG Duration 05/07/23 MET Penit[facility]iary Goal (LTG) Pt will be able perform 8/10 step ups on a 6 step with LLE leading and no use of upper extremities for stabilization in order to demonstrate improved hip strength and single leg balance to safely use the stairs leading up the house and in the community. LTG Duration 05/22/23 MET 1 Impairment Functional, ROM Short Term Goal (STG) Pt will improve lumbar flexion by 5 degrees. STG Duration 05/07/23 MET Voice Writing Reporter Goal (LTG) Pt will improve lumbar flexion by 10 degrees in order to curing pickling packer objects from the ground without pain. LTG Duration 05/22/23 MET Progress Towards Goals Progress Towards Goals Goals Met Assessment Summary Assessment Pt tolerated exercises well, but session ended early because she was not feeling well today. Tmt focus on finalizing HEP for independent strengthening of lumbar spine and hips, in addition to spinal mobility. Continued with and progressed squats, hip hinge, and core strengthening activities. Pt has met all goals and is discharging today. Pt is safe to discharge from PT for independent exercise. Physical Therapy Plan Frequency and Duration Frequency of Treatment 2x/Week Duration of treatment (weeks) 6 Plan of Care Start Date 04/17/23 Plan of Care End Date 05/22/23 Therapeutic Interventions Therapeutic Interventions Aquatic Therapy,Balance Training,Coordination Training ,Gait Training,Home Exercise Program,Joint Mobilizations, Manual Therapy,Neuromuscular Re-education,Patient/Caregiver Education,Soft Tissue Mobilization,Therapeutic Activities,Therapeutic Exercises Modalities Cold Pack/Ice Massage,Electric Stimulation,Hot Packs, Traction- Mechanical Discharge Physical Therapy Discharge Reasons Goals Met Discharge Comments Discharged with HEP. All goals met. Pt is no longer symptomatic and ready for independent exercise Next Visit Focus/Plan Next Note Type Discharge Summary Next Visit Plan HEP for discharge
--- NOTE | 2023-05-21 14:27 | PT.OPDS ---
Current Diagnoses Pain in left hip (05/21/23) Lumbago with sciatica, left side (05/21/23) Muscle weakness (generalized) (05/21/23) Visit Care Team Role Provider Type Ivan Gracia MD Attending Provider Physician Family Provider Primary Care Provider Referring Provider Specialty: Family Practice Address: [address] [place] [address] [place], [address] Email: [email or web address] Visit Number Visit Number 6 Discharge Summary PT-OP-B Current Condition Start: 04/16/23 11:48 Freq: Status: Active Protocol: Document 04/17/23 13:27 NM (Rec: 04/17/23 15:16 NM [id number]) Current Condition History of Current Condition Onset Date mid March 2023 Current Complaints Lower back pain radiating down the LLE, L hip pain History of Current Condition Pt reports lower back pain beginning in mid-March 2023 with no known onset. No prior history of back pain or back injuries. The back pain began as a banded pattern across the lower back, but is now localized to the L side ~L4/L5 with occasional radiation down the LLE to the calf. Pt was experiencing occasional numbness in L foot, but has not experienced any numbness for 3 days. Currently, pt describes back pain as a constant ache. Pain is best managed by tylenol and heat with occasional movement ( ambulation). Prior Treatments and Tests Pt had radiographs with Dr. Perera showing degenerative changes in L5-S1 and L4-L5. Future Testing and Treatments Planned Pt is planning to follow up with Dr. Perera. Treatment Goals Patient/Caregiver Goals Don shoes and socks without pain Walk for extended period of time for errands Bend over to garden Prior Functional Status Baseline Function- ADL's Independent Baseline Function- Mobility Independent Baseline Function- Gait No reported difficulty with ambulating Current Functional Impairments (Reported) Functional Limitations- ADL's Pt reports difficulty donning shoes/socks on L foot. She is unable to sit or walk for long periods of time. Pt also mentions that she is having difficulty with gardening due to pain from being in a flexed position, and she is unable to lift items from the the ground or a lower level. Functional Limitations- Mobility/Gait Difficulty with sitting for > 30 minutes without pain medication or heat. Pt has difficulty with initiating sit to stand transfers due to back/L hip pain. Pt is unable to rotate/roll during bed mobility and has to scoot up before sitting up to move to the edge of the bed. PT-OP-C Subjective Start: 04/16/23 11:48 Freq: Status: Active Protocol: Document 05/21/23 13:50 NM (Rec: 05/21/23 14:27 NM [id number]) OP-PT Subjective Patient Comments Patient Comments Pt reports that she is doing well. She has a mask today because she has been sneezing a lot, but she reports that she is not contagious. Pt has met all goals and is agreeable to discharge today. Patient Reported Progress Improving PT-OP-D Balance Start: 04/16/23 11:48 Freq: Status: Active Protocol: Document 04/17/23 13:27 NM (Rec: 04/17/23 15:16 NM [id number]) OP-PT Balance Assessment Standing Balance Static Standing Balance Ability Good Dynamic Standing Balance Ability Fair Device Used none Balance Tests Single Limb Standing Single Limb- Right 3 sec Single Limb- Left 0 sec Aleman Fall Scale Copyright Permission PT-OP-E Functional Tests Start: 04/16/23 11:48 Freq: Status: Active Protocol: Document 04/17/23 13:27 NM (Rec: 04/17/23 15:16 NM [id number]) Functional Tests Five Times Sit to Stand Test Score 20 seconds Comments pain with initial sit to stands, but pain decreases with repetitive motion Timed Up and Go (TUG) Score 6 seconds Comments turned L TUG Impairment Rating 0% Impaired (Score 10) PT-OP-F Manual Assessment Start: 04/16/23 11:48 Freq: Status: Active Protocol: Document 04/17/23 13:27 NM (Rec: 04/17/23 15:16 NM [id number]) Manual Assessments Joint Mobility Assessment Joint Mobility Assessment PA springing to lumbar spine ( L1-LS2): end feels are springy and pain is not provoked. Hip mobility assessed: full B hip ROM, normal end feels; no pain provoked SI Joint PA springing: normal end feel, no pain provoked PT-OP-G Mobility & Gait Start: 04/16/23 11:48 Freq: Status: Active Protocol: Document 05/19/23 13:59 NM (Rec: 05/19/23 15:41 NM [id number]) OP Gait Assessment Comments Gait Comments 05/19/23: Gait is no longer antalgic and demos more normal mechanics. No lateral trunk lean PT-OP-J Posture/Palpation/Skin Start: 04/16/23 11:48 Freq: Status: Active Protocol: Document 04/17/23 13:27 NM (Rec: 04/17/23 15:16 NM [id number]) Posture Evaluation Position Standing Evaluation View Lateral Head/C-Spine Posture Flexed,Side Bent Right L-Spine Posture Decreased Lordosis Shoulder Posture (L) Forward,(R) Forward Hip Posture (L) Externally Rotated,(R) Externally Rotated Palpation Assessment Location L hip Palpation Location lateral hip Palpation Details No tenderness, no edema, no abnormal findings Paraspinals Palpation Findings Tenderness Palpation Details Tenderness around L L4-S2, but does not evoke symptoms. No muscle guarding PT-OP-K Range of Motion Start: 04/16/23 11:48 Freq: Status: Active Protocol: Document 05/19/23 13:59 NM (Rec: 05/19/23 15:41 NM [id number]) Lumbar Spine Range of Motion Lumbar Spine Active Degrees Comments Updated 05/19/23: Flex 60 deg (to floor, no pain ) Ext 20 deg Lateral flex 20 deg ea direction PT-OP-L Special Tests Start: 04/16/23 11:48 Freq: Status: Active Protocol: Document 04/17/23 13:27 NM (Rec: 04/17/23 15:16 NM [id number]) Special Tests Lumbar Spine Special Tests Yo/Quadrant Test Results negative Comments No symptom provocation in ext/ SB/rot on either side SIJ Cluster Test Results negative Comments No symptom provocation w B anterior distraction, sacral thrust, compression Straight Leg Raise Test Results Negative Comments No symptom provocation Prone Press Up Test Results Positive Comments Relieved back pain Standing Flexion Test Results 13 from ground Comments provokes back pain PT-OP-M Strength Start: 04/16/23 11:48 Freq: Status: Active Protocol: Document 04/17/23 13:27 NM (Rec: 04/17/23 15:16 NM [id number]) Trunk Strength Trunk Manual Muscle Testing Testing Position standing Flexion 4- Good- Extension 4- Good- Rotation Left 3+ Fair+ Rotation Right 4 Good Lateral Flexion Left 3+ Fair+ Lateral Flexion Right 4 Good Core Stabilization Unable to perform sitting up motion during bed mobility without use of BUE, difficulty maintaining stable trunk while in quadruped Comments Poor core stabilization without compensation (hip or shoulder rotation) Hip Strength Hip Manual Muscle Testing Left Flexion (L2) 4- Good- Extension (S1) 4- Good- Abduction 3+ Fair+ Adduction 4- Good- External Rotation 3+ Fair+ Internal Rotation 3+ Fair+ Comments No pain provocation in hips or low back Right Flexion (L2) 4 Good Extension (S1) 4 Good Abduction 4- Good- Adduction 4 Good External Rotation 3+ Fair+ Internal Rotation 3+ Fair+ Comments No pain provocation in hips or low back PT-OP-T Assessment and Plan Start: 04/16/23 11:48 Freq: Status: Active Protocol: Document 05/21/23 13:50 NM (Rec: 05/21/23 14:27 NM [id number]) Physical Therapy Assessment Rehab Potential Rehabilitation Potential Good Evaluation Complexity Number of Personal Factors/Comorbidities 3 or More Number of Body Systems Impaired 1-2 Clinical Presentation at Evaluation Evolving Impairments Impairments Activity Tolerance,Balance, Functional Activities, Functional Mobility,Gait,Pain, Posture,ROM,Soft Tissue Mobility,Strength Goals 5 Impairment ROM, Pain Short Term Goal (STG) Pt will be able to don L shoes and socks with a pain or 4/10 or less in order to demonstrate improved hip and lumbar ROM. STG Duration 05/07/23 MET Mcc Goal (LTG) Pt will be able to don L shoes and socks in sitting with pain of 2/10 or less in order to demonstrate improved hip and lumbar ROM, pain management, and activity tolerance. LTG Duration 05/22/23 MET 4 Impairment Strength, Endurance Short Term Goal (STG) Pt will be able to walk for at least 30 minutes with low back pain of 3/10 or less in order to improve activity tolerance. STG Duration 05/07/23 MET Heel Top Lift Splitter Goal (LTG) Pt will be able to ambulate for at least 60 minutes with low back pain of 2/10 or less in order to demonstrate improved hip strength and activity tolerance for shopping/errands. LTG Duration 05/22/23 MET 3 Impairment Pain Short Term Goal (STG) Pt will improve Oswestry score by 6 points in order to demostrate improved pain management. STG Duration 05/07/23 MET Heel Top Lift Splitter Goal (LTG) Pt will improve Oswestry score by 12 points (MCID) in order to demonstrate improved pain management and activity tolerance during ADLs. LTG Duration 05/22/23 MET () 2 Impairment Strength, Balance Short Term Goal (STG) Pt will be able to perform 5/ 10 step ups on a 6 step with LLE leading and 1 or fewer UE for stabilization . STG Duration 05/07/23 MET Mcc Goal (LTG) Pt will be able perform 8/10 step ups on a 6 step with LLE leading and no use of upper extremities for stabilization in order to demonstrate improved hip strength and single leg balance to safely use the stairs leading up the house and in the community. LTG Duration 05/22/23 MET 1 Impairment Functional, ROM Short Term Goal (STG) Pt will improve lumbar flexion by 5 degrees. 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 LTG Duration 05/22/23 MET Progress Towards Goals Progress Towards Goals Goals Met Assessment Summary Assessment Pt has been attending PT for low back pain since April 2023, completing 6 session. She does not report pain or any symptoms for last several sessions. Pt has met all LTG and STG goals. She reports that she is able to participate in all ADLs/IADLS and recreational activities without restriction. PT and pt discussed discharge today, to which pt agrees. Pt issued HEP with handouts for independent strengthening of lumbar spine and hips, in addition to spinal mobility. PT and pt discussed alternating activities on different days for variation in exercise routine and to continue with walking program. Pt is safe to discharge from PT for independent exercise. PT instructed pt to contact PCP if symptoms change/return, which pt verbalizes understanding. Physical Therapy Plan Frequency and Duration Frequency of Treatment 2x/Week Duration of treatment (weeks) 6 Plan of Care Start Date 04/17/23 Plan of Care End Date 05/22/23 Therapeutic Interventions Therapeutic Interventions Aquatic Therapy,Balance Training,Coordination Training ,Gait Training,Home Exercise Program,Joint Mobilizations, Manual Therapy,Neuromuscular Re-education,Patient/Caregiver Education,Soft Tissue Mobilization,Therapeutic Activities,Therapeutic Exercises Modalities Cold Pack/Ice Massage,Electric Stimulation,Hot Packs, Traction- Mechanical Discharge Physical Therapy Discharge Reasons Goals Met Discharge Comments Discharged with HEP. All goals met. Pt is no longer symptomatic and ready for independent exercise Next Visit Focus/Plan Next Note Type Discharge Summary Next Visit Plan HEP for discharge
== END 2023-05-25 13:51 | disposition home or self-care (01) ==
LOC: PHYS 13:45
PROVIDERS: Family Provider Family Medicine; PCP Family Medicine; Referring Provider Family Medicine; Visit Provider Family Medicine
DX: M54.42 Lumbago with sciatica, left side (principal); M25.552 Pain in left hip; M62.81 Muscle weakness (generalized)
CPT/HCPCS: 97110; 97162; 97530

== ENCOUNTER 2024-08-01 11:30 | Outpatient (RCR) | payer MEDICARE, OTHER, SELFPAY ==
--- NOTE | 2024-04-21 15:55 | PT.OIE ---
Current Diagnoses Stiffness of right hip, not elsewhere classified (04/21/24) Stiffness of left hip, not elsewhere classified (04/21/24) Radiculopathy, site unspecified (04/21/24) Other lack of coordination (04/21/24) Weakness (04/21/24) Visit Care Team Role Provider Type Ivan Gracia MD Attending Provider Physician Family Provider Primary Care Provider Referring Provider Specialty: Family Practice Address: [address] [place] [address], [facility] [place], [facility] Email: [email or web address] Physical Therapy Initial Evaluation PT-OP-A Visit Information Start: 04/21/24 09:19 Freq: Status: Active Protocol: Document 04/21/24 11:37 NM (Rec: 04/21/24 12:27 NM [id number]) Out-Patient Physical Therapy Visit Information Visit Information Visit Start Time 11:38 Visit Stop Time 12:15 Visit Number 1 Evaluation Information Evaluation Date 04/21/24 Precautions Precautions Hx retrolisthesis PT-OP-B Current Condition Start: 04/21/24 09:19 Freq: Status: Active Protocol: Document 04/21/24 11:37 NM (Rec: 04/21/24 12:27 NM [id number]) Current Condition History of Current Condition Current Complaints pain, weakness, poor balance History of Current Condition Pt presents with low back pain . Pain is chronic for 7-8 months. She states that after working in the garden, it started to hurt so much across a big swatch. States that she had trouble with bending. Went to [place] for 2 months to help with dying brother; had difficulty with walking, bending, lifting, twisting. Had to use a walker to help with ambulation. She went to a chiro, which helped. Was having difficulty lying flat. No specific LEANNE. However, has had chronic pain. No longer have Sciatic pain. She reports not the leg. Pt reports was going to a chiro 2x a day for 3x/wk. Received manipulations and had pressure points worked on, which helped. She reports that she also gets a midback-L shoulder blade that spreads and goes away. Pt reports bad low back spasms, sleeping was interrupted. Impairments with walking, sleeping better because pills, bending, lifting, twisting, bed mobility, lying flat until in place. Reports that balance is not at good as used to be; reports that she removed grass to help; states not picking up feet. Reports no changes in bowel, bladder. HAs not had an MRI. Has been drinking wine but stopped due to pill intake Prior Treatments and Tests Lumbar spine X-ray 02/2023- Impression: Limited range of motion and multilevel lumbar spine spondylosis, most notably L4-L5 and L5-S1. Current Functional Impairments (Reported) Functional Limitations- ADL's pain with donning/doffing socks, donning/doffing pants pain with all household ADLs does not perform due to pain Functional Limitations- Mobility/Gait sitting- w/ heating pad 20 min standing and ambulating- few minutes STS Transfers- catching with extension PT-OP-C Subjective Start: 04/21/24 09:19 Freq: Status: Active Protocol: Document 04/21/24 11:37 NM (Rec: 04/21/24 12:27 NM [id number]) OP-PT Subjective Patient Comments Patient Comments Pt consents to participate in evaluation Patient Questionnaires Oswestry Low Back Index Oswestry Score 58/100 OP-PT Pain Assessment Location Back Pain Location Details low back Scale Used Numeric (0 - 10) Description Aching,Dull,Sharp,Spasm Frequency Frequent Pain Aggravating Factors ADL's,Activity,Exercise, Standing,Sitting,Walking, Bending,Lifting Other Pain Aggravating Factors twisting Pain Alleviating Factors Heat,Medication,Rest Home Pain Medication Use Pain Medications Used Yes: oxycodone 7.5 mg, muscle relaxer PT-OP-E Functional Tests Start: 04/21/24 09:19 Freq: Status: Active Protocol: Document 04/21/24 11:37 NM (Rec: 04/21/24 12:27 NM [id number]) Functional Tests Five Times Sit to Stand Test Score unable to complete at this time d/t pain PT-OP-F Manual Assessment Start: 04/21/24 09:19 Freq: Status: Active Protocol: Document 04/21/24 11:37 NM (Rec: 04/21/24 12:27 NM [id number]) Manual Assessments Soft Tissue Assessment Soft Tissue Mobility Assessment Increased restrictions of thoracic and lumbar paraspinals, lat, QL, hip flexors Joint Mobility Assessment Joint Mobility Assessment Hypermobility of lumbar spinous processes with PA springing in sitting and prone , hypomobility of hips B R>L PT-OP-G Mobility & Gait Start: 04/21/24 09:19 Freq: Status: Active Protocol: Document 04/21/24 11:37 NM (Rec: 04/21/24 12:27 NM [id number]) OP Mobility Evaluation Transfers Sit to Stand Requires BUE to push up from chair, must pause in coming to stand d/t pain OP Gait Assessment Gait Gait Assistance Required: Standby Assistance Distance (Feet) 150 Gait Deviations General Gait Pattern Antalgic,Flexed Trunk,Narrow Based Gait PT-OP-H Neuro Start: 04/21/24 09:19 Freq: Status: Active Protocol: Document 04/21/24 11:37 NM (Rec: 04/21/24 12:27 NM [id number]) Deep Tendon Reflex & Clonus Assessment Deep Tendon Reflex Bilateral Patellar Deep Tendon Reflex 1+ Diminished PT-OP-J Posture/Palpation/Skin Start: 04/21/24 09:19 Freq: Status: Active Protocol: Document 04/21/24 11:37 NM (Rec: 04/21/24 12:27 NM [id number]) Posture Evaluation Position Standing Head/C-Spine Posture Forward Head L-Spine Posture Decreased Lordosis Shoulder Posture (L) Rounded,(R) Rounded Pelvis Posture Posterior Tilted Hip Posture (L) Externally Rotated,(R) Externally Rotated Knee Posture (L) Genu Valgus,(R) Genu Valgus Comments Posture Comments Demos tendency for flexed trunk position instead of extension, even posturally when sitting Palpation Assessment Location lumbar spine Palpation Findings Soft Tissue Tightness,Spasm, Muscle Guarding Palpation Details Tender along lower lumbar spinous and transverse processes, L PSIS and L SIJ Tightness and tenderness along lumbar paraspinals L>R PT-OP-K Range of Motion Start: 04/21/24 09:19 Freq: Status: Active Protocol: Document 04/21/24 11:37 NM (Rec: 04/21/24 12:27 NM [id number]) Lumbar Spine Range of Motion Lumbar Spine Active Percentage Flexion 75 Extension 50 Rotation Left 75 Rotation Right 25 Lateral Flexion Left 50 Lateral Flexion Right 50 Comments IE: pain with all movements ashli ext; demos hitch with eccentric return following flexion Hip Goniometric Range of Motion Hip Right Internal Rotation 20 External Rotation 20 Comments pain with IR > ER Left Internal Rotation 30 External Rotation 30 Comments pain with IR PT-OP-L Special Tests Start: 04/21/24 09:19 Freq: Status: Active Protocol: Document 04/21/24 11:37 NM (Rec: 04/21/24 12:27 NM [id number]) Special Tests Lumbar Spine Special Tests Distraction Test Results + Yo/Quadrant Test Results + Other Special Tests Special Tests Drop test: + (pain with slight heel raise and quick drop onto heels); reproduces familiar pain PT-OP-M Strength Start: 04/21/24 09:19 Freq: Status: Active Protocol: Document 04/21/24 11:37 NM (Rec: 04/21/24 12:27 NM [id number]) Trunk Strength Trunk Manual Muscle Testing Flexion 3+ Fair+ Extension 3+ Fair+ Rotation Left 3+ Fair+ Rotation Right 3+ Fair+ Lateral Flexion Left 3+ Fair+ Lateral Flexion Right 3+ Fair+ Comments IE: pain with resisted ext Hip Strength Hip Manual Muscle Testing Right Flexion (L2) 3+ Fair+ Extension (S1) 3+ Fair+ Abduction 4- Good- Adduction 4- Good- External Rotation 4- Good- Internal Rotation 3+ Fair+ Comments pain with IR, hip ext, abd d/t core stabilization Left Flexion (L2) 3+ Fair+ Extension (S1) 3+ Fair+ Abduction 3+ Fair+ Adduction 4- Good- External Rotation 4- Good- Internal Rotation 3+ Fair+ Comments pain with IR Knee Strength Knee Manual Muscle Testing Right Flexion (S2) 4- Good- Extension (L3) 4- Good- Left Flexion (S2) 4- Good- Extension (L3) 4- Good- Ankle/Foot Strength Ankle and Foot Manual Muscle Testing Right Dorsiflexion (L4) 3+ Fair+ Plantarflexion (S1) 4- Good- Comments tested in sitting Left Dorsiflexion (L4) 4- Good- Plantarflexion (S1) 4- Good- Comments tested in sitting PT-OP-Q Treatments Start: 04/21/24 09:19 Freq: Status: Active Protocol: Document 04/21/24 11:37 NM (Rec: 04/21/24 12:27 NM [id number]) Therapeutic Activity Therapeutic Activity Bed mobility Comments Education and rationale of log roll and gentle segmental bridging with glute activation for improved bed mobility and symptom management. Pt successfully performs after several reps Manual Therapy Treatment Consent Patient gave verbal consent for manual Yes treatment Soft Tissue Mobilization lumbar spine Body Location paraspinals, QL, glutes Mobilization Type Rolling,Strumming,Sustained Pressure Intensity/Depth Superficial Body Position Sidelying Comments Positioned in R sidelying with head supported on pillow and pillow between legs. Performed gentle soft tissue mobilization along L sided paraspinals with gentle lateral flexion mobilization. Monitored for pain and feedback from pt Self-Care/Home Management Treatment Education Other Education Education on use of lumbar distraction at home in supine as tolerated on couch with legs over side or on bed with pillows under legs for pain management (issued handout with instructions) PT-OP-T Assessment and Plan Start: 04/21/24 09:19 Freq: Status: Active Protocol: Document 04/21/24 11:37 NM (Rec: 04/21/24 12:27 NM [id number]) Physical Therapy Assessment Rehab Potential Rehabilitation Potential Good Evaluation Complexity Number of Personal Factors/Comorbidities 1-2 Number of Body Systems Impaired 1-2 Clinical Presentation at Evaluation Stable Impairments Impairments Activity Tolerance,Balance, Functional Activities, Functional Mobility,Gait, Integument,Pain,Posture,ROM, Sensation,Soft Tissue Mobility ,Strength,Transfers Other Concerns Age Related Concerns Pt did not fill out medical history form Barriers to Rehabilitation Pt recently lost her brother to cancer (reason for travel) Goals Four Impairment compliance with HEP Case Management Assistant Goal (LTG) Pt will report compliance with HEP at least 3x/wk in order to maximize progression with PT and transition to maintenance program LTG Duration 10 weeks Three Impairment pain with transfers Short Term Goal (STG) Pt will be able to perform at least 8/10 STS without compensation or increase in low back pain in order to demonstrate increased BLE strength and symptom management during transfers Jail Goal (LTG) Pt will be able to perform at least 5x STS at age-related norms (12.6 seconds) if appropriate in order to demonstrate increased BLE strength and symptom management during transfers LTG Duration 10 weeks Two Impairment trunk and BLE strength impaired d/t pain and weakness Case Management Assistant Goal (LTG) Pt will increase trunk and BLE strength globally to at least 4/5 MMT without increase in back pain in order to demonstrate improved strength for gait and transfers LTG Duration 10 weeks One Impairment BENJAMIN 58% impairment of ADLs/ IADLs and mobility Short Term Goal (STG) Pt will improve standing and ambulation tolerance to > 10 minutes with back pain <6/10 in order to demonstrate improved symptom management and activity tolerance. STG Duration 6 weeks Jail Goal (LTG) Pt will report that she is impaired <25% with ADLs/IADLs due to back pain in order to demonstrate improved symptom management LTG Duration 10 weeks Assessment Summary Assessment Pt is a 73 y.o. female presenting with chronic low back pain following a recent exacerbation with travel. Most recent episode of pain began 7-8 months ago following yard work and has been steadily worsening over the past months until most recent exacerbation for the past 2 months following travel to a different state. Past imaging of lumbar spine shows spondylosis of L4-5 and L5-S1. Pt has impairments with ROM, strength, gait, balance, ADLs/ IADLs, functional mobility ( bed mobility), sleeping, pain management, and lifting. Prior to PT evaluation, pt has using an walker to ambulate and attended several chiropractor appointments out of state which helped pain management too. Pt currently has global limitations in trunk ROM and strength, in addition to B hip mobility and strength; pain is reproduced with all motions. She has tenderness to palpation along the lumbar spine, PSIS/SIJ. No radicular symptoms into BLE despite PMH. BLE strength is limited globally as well and reproduces back pain due to increased sensitivity. Pt's pain is currently managed with pain medication. PT educated on exam findings and plan of care, in addition to education regarding body mechanics and pain reduction strategies. If symptoms do not improve in 4-6 weeks, pt would benefit from more advanced imaging and referral to security delivery specialist for pain management. Pt would benefit from skilled PT for progressive strengthening and stabilization, in addition to body mechanics training in order to improve symptom management, functional mobility, and her ability to participate in ADLs/IADLs. Physical Therapy Plan Frequency and Duration Frequency of Treatment 2x/Week Duration of treatment (weeks) 10 Plan of Care Start Date 04/21/24 Plan of Care End Date 07/01/24 Therapeutic Interventions Therapeutic Interventions Balance Training,Gait Training ,Home Exercise Program,Joint Mobilizations,Manual Therapy, Neuromuscular Re-education, Orthotic/Prosthetic Management ,Patient/Caregiver Education, Self-Care/Home Management, Sensory Integration,Soft Tissue Mobilization,Taping, Therapeutic Activities, Therapeutic Exercises Modalities Cold Pack/Ice Massage,Electric Stimulation,Hot Packs, Ultrasound Other Therapeutic Interventions No lumbar spine mobilization d /t instability on past imaging (retrolisthesis) Pelvic realignment and MET as needed Next Visit Focus/Plan Next Note Type Treatment Note Next Visit Plan Diaphragmatic breathing, pain modulation. Sleeping and positioning ergonomics and log roll. Manual: STM to low back , hip mobilizations (future) if tolerated. Flexion biased core bracing in supine and sitting as tolerated with progression to standing trunk strengthening. Initiate HEP: sidelying and seated hip strengthening ( clams, reverse, hip abd). Initiate low back and hip stretching: figure 4, piriformis, standing hip flexor vs oc, calf stretch . can trial counter stretch. Review log roll and body mechanics as needed for bed mobility, STS, lifting, hip hinge
--- NOTE | 2024-04-26 12:28 | PT.OTN ---
Current Diagnoses Stiffness of right hip, not elsewhere classified (04/26/24) Stiffness of left hip, not elsewhere classified (04/26/24) Radiculopathy, site unspecified (04/26/24) Other lack of coordination (04/26/24) Weakness (04/26/24) Physical Therapy Treatment Note PT-OP-A Visit Information Start: 04/21/24 09:19 Freq: Status: Active Protocol: Document 04/26/24 09:03 AB (Rec: 04/26/24 12:28 AB [id number]) Out-Patient Physical Therapy Visit Information Visit Information Visit Type Treatment Note Visit Start Time 11:32 Visit Stop Time 12:19 Visit Number 2 Number of [employer] Visits 1 Evaluation Information Evaluation Date 04/21/24 Precautions Precautions Hx retrolisthesis PT-OP-B Current Condition Start: 04/21/24 09:19 Freq: Status: Active Protocol: Document 04/21/24 11:37 NM (Rec: 04/21/24 12:27 NM [id number]) Current Condition History of Current Condition Current Complaints pain, weakness, poor balance History of Current Condition Pt presents with low back pain . Pain is chronic for 7-8 months. She states that after working in the garden, it started to hurt so much across a big swatch. States that she had trouble with bending. Went to [place] for 2 months to help with dying brother; had difficulty with walking, bending, lifting, twisting. Had to use a walker to help with ambulation. She went to a chiro, which helped. Was having difficulty lying flat. No specific LEANNE. However, has had chronic pain. No longer have Sciatic pain. She reports not the leg. Pt reports was going to a chiro 2x a day for 3x/wk. Received manipulations and had pressure points worked on, which helped. She reports that she also gets a midback-L shoulder blade that spreads and goes away. Pt reports bad low back spasms, sleeping was interrupted. Impairments with walking, sleeping better because pills, bending, lifting, twisting, bed mobility, lying flat until in place. Reports that balance is not at good as used to be; reports that she removed grass to help; states not picking up feet. Reports no changes in bowel, bladder. HAs not had an MRI. Has been drinking wine but stopped due to pill intake Prior Treatments and Tests Lumbar spine X-ray 02/2023- Impression: Limited range of motion and multilevel lumbar spine spondylosis, most notably L4-L5 and L5-S1. Current Functional Impairments (Reported) Functional Limitations- ADL's pain with donning/doffing socks, donning/doffing pants pain with all household ADLs does not perform due to pain Functional Limitations- Mobility/Gait sitting- w/ heating pad 20 min standing and ambulating- few minutes STS Transfers- catching with extension PT-OP-C Subjective Start: 04/21/24 09:19 Freq: Status: Active Protocol: Document 04/26/24 09:03 AB (Rec: 04/26/24 12:28 AB [id number]) OP-PT Subjective Patient Comments Patient Comments Patient rates pain4-5/10 low back, reports pain increases a little with sit to stand. PT-OP-E Functional Tests Start: 04/21/24 09:19 Freq: Status: Active Protocol: Document 04/21/24 11:37 NM (Rec: 04/21/24 12:27 NM [id number]) Functional Tests Five Times Sit to Stand Test Score unable to complete at this time d/t pain PT-OP-F Manual Assessment Start: 04/21/24 09:19 Freq: Status: Active Protocol: Document 04/21/24 11:37 NM (Rec: 04/21/24 12:27 NM [id number]) Manual Assessments Soft Tissue Assessment Soft Tissue Mobility Assessment Increased restrictions of thoracic and lumbar paraspinals, lat, QL, hip flexors Joint Mobility Assessment Joint Mobility Assessment Hypermobility of lumbar spinous processes with PA springing in sitting and prone , hypomobility of hips B R>L PT-OP-G Mobility & Gait Start: 04/21/24 09:19 Freq: Status: Active Protocol: Document 04/21/24 11:37 NM (Rec: 04/21/24 12:27 NM [id number]) OP Mobility Evaluation Transfers Sit to Stand Requires BUE to push up from chair, must pause in coming to stand d/t pain OP Gait Assessment Gait Gait Assistance Required: Standby Assistance Distance (Feet) 150 Gait Deviations General Gait Pattern Antalgic,Flexed Trunk,Narrow Based Gait PT-OP-H Neuro Start: 04/21/24 09:19 Freq: Status: Active Protocol: Document 04/21/24 11:37 NM (Rec: 04/21/24 12:27 NM [id number]) Deep Tendon Reflex & Clonus Assessment Deep Tendon Reflex Bilateral Patellar Deep Tendon Reflex 1+ Diminished PT-OP-J Posture/Palpation/Skin Start: 04/21/24 09:19 Freq: Status: Active Protocol: Document 04/21/24 11:37 NM (Rec: 04/21/24 12:27 NM [id number]) Posture Evaluation Position Standing Head/C-Spine Posture Forward Head L-Spine Posture Decreased Lordosis Shoulder Posture (L) Rounded,(R) Rounded Pelvis Posture Posterior Tilted Hip Posture (L) Externally Rotated,(R) Externally Rotated Knee Posture (L) Genu Valgus,(R) Genu Valgus Comments Posture Comments Demos tendency for flexed trunk position instead of extension, even posturally when sitting Palpation Assessment Location lumbar spine Palpation Findings Soft Tissue Tightness,Spasm, Muscle Guarding Palpation Details Tender along lower lumbar spinous and transverse processes, L PSIS and L SIJ Tightness and tenderness along lumbar paraspinals L>R PT-OP-K Range of Motion Start: 04/21/24 09:19 Freq: Status: Active Protocol: Document 04/21/24 11:37 NM (Rec: 04/21/24 12:27 NM [id number]) Lumbar Spine Range of Motion Lumbar Spine Active Percentage Flexion 75 Extension 50 Rotation Left 75 Rotation Right 25 Lateral Flexion Left 50 Lateral Flexion Right 50 Comments IE: pain with all movements ashli ext; demos hitch with eccentric return following flexion Hip Goniometric Range of Motion Hip Right Internal Rotation 20 External Rotation 20 Comments pain with IR > ER Left Internal Rotation 30 External Rotation 30 Comments pain with IR PT-OP-L Special Tests Start: 04/21/24 09:19 Freq: Status: Active Protocol: Document 04/21/24 11:37 NM (Rec: 04/21/24 12:27 NM [id number]) Special Tests Lumbar Spine Special Tests Distraction Test Results + Yo/Quadrant Test Results + Other Special Tests Special Tests Drop test: + (pain with slight heel raise and quick drop onto heels); reproduces familiar pain PT-OP-M Strength Start: 04/21/24 09:19 Freq: Status: Active Protocol: Document 04/21/24 11:37 NM (Rec: 04/21/24 12:27 NM [id number]) Trunk Strength Trunk Manual Muscle Testing Flexion 3+ Fair+ Extension 3+ Fair+ Rotation Left 3+ Fair+ Rotation Right 3+ Fair+ Lateral Flexion Left 3+ Fair+ Lateral Flexion Right 3+ Fair+ Comments IE: pain with resisted ext Hip Strength Hip Manual Muscle Testing Right Flexion (L2) 3+ Fair+ Extension (S1) 3+ Fair+ Abduction 4- Good- Adduction 4- Good- External Rotation 4- Good- Internal Rotation 3+ Fair+ Comments pain with IR, hip ext, abd d/t core stabilization Left Flexion (L2) 3+ Fair+ Extension (S1) 3+ Fair+ Abduction 3+ Fair+ Adduction 4- Good- External Rotation 4- Good- Internal Rotation 3+ Fair+ Comments pain with IR Knee Strength Knee Manual Muscle Testing Right Flexion (S2) 4- Good- Extension (L3) 4- Good- Left Flexion (S2) 4- Good- Extension (L3) 4- Good- Ankle/Foot Strength Ankle and Foot Manual Muscle Testing Right Dorsiflexion (L4) 3+ Fair+ Plantarflexion (S1) 4- Good- Comments tested in sitting Left Dorsiflexion (L4) 4- Good- Plantarflexion (S1) 4- Good- Comments tested in sitting PT-OP-Q Treatments Start: 04/21/24 09:19 Freq: Status: Active Protocol: Document 04/26/24 09:03 AB (Rec: 04/26/24 12:28 AB [id number]) Therapeutic Exercises Supine Exercises piriformis stretch Supine Exercise Name HEP Side bilateral Reps/Minutes one minute each LE Comments verbal and tactile cues breathing from diaphragm in modified restorative pose Supine Exercise Name HEP Reps/Minutes 3 min Comments verbal cues for breathing from diaphgram Sitting Exercises seated hip abd with band Sitting Exercise Name HEP Side bilateral Resistance [place] green band Reps/Minutes one minute Comments verbal cues Therapeutic Activity Therapeutic Activity sit to stand Reps/Minutes X3 and then X 5 Comments HEP Patient ed mechanics of sit to stand and self tactile cues for hip hinge Also cued for hip hinge reaching for items end of session. Bed mobility Name log roll Comments Verbal cues to lie on side, then roll like a log onto back , VC for timing for sidelying to sit and to scoot back until back of knees touch mat prior to sitting to sidelying. Manual Therapy Treatment Consent Patient gave verbal consent for manual Yes treatment Soft Tissue Mobilization lumbar spine Body Location paraspinals, glutes bilateral Mobilization Type Cross-Friction,Rolling, Sustained Pressure Intensity/Depth Moderate Body Position Sidelying Comments also intervertebral tissue PT-OP-T Assessment and Plan Start: 04/21/24 09:19 Freq: Status: Active Protocol: Document 04/26/24 09:03 AB (Rec: 04/26/24 12:28 AB [id number]) Physical Therapy Assessment Goals Four Impairment compliance with HEP Prison Goal (LTG) Pt will report compliance with HEP at least 3x/wk in order to maximize progression with PT and transition to maintenance program LTG Duration 10 weeks Three Impairment pain with transfers Short Term Goal (STG) Pt will be able to perform at least 8/10 STS without compensation or increase in low back pain in order to demonstrate increased BLE strength and symptom management during transfers Journeyman Press Operator Goal (LTG) Pt will be able to perform at least 5x STS at age-related norms (12.6 seconds) if appropriate in order to demonstrate increased BLE strength and symptom management during transfers LTG Duration 10 weeks Two Impairment trunk and BLE strength impaired d/t pain and weakness Journeyman Press Operator Goal (LTG) Pt will increase trunk and BLE strength globally to at least 4/5 MMT without increase in back pain in order to demonstrate improved strength for gait and transfers LTG Duration 10 weeks One Impairment BENJAMIN 58% impairment of ADLs/ IADLs and mobility Short Term Goal (STG) Pt will improve standing and ambulation tolerance to > 10 minutes with back pain <6/10 in order to demonstrate improved symptom management and activity tolerance. STG Duration 6 weeks Journeyman Press Operator Goal (LTG) Pt will report that she is impaired <25% with ADLs/IADLs due to back pain in order to demonstrate improved symptom management LTG Duration 10 weeks Assessment Summary Assessment Patient transfers sit to stand with improved mechanics and reports of decreased pain. Mehnaz rates back pain 1/10 ambulating out of session without device. Physical Therapy Plan Frequency and Duration Frequency of Treatment 2x/Week Duration of treatment (weeks) 10 Plan of Care Start Date 04/21/24 Plan of Care End Date 07/01/24 Therapeutic Interventions Therapeutic Interventions Balance Training,Gait Training ,Home Exercise Program,Joint Mobilizations,Manual Therapy, Neuromuscular Re-education, Orthotic/Prosthetic Management ,Patient/Caregiver Education, Self-Care/Home Management, Sensory Integration,Soft Tissue Mobilization,Taping, Therapeutic Activities, Therapeutic Exercises Modalities Cold Pack/Ice Massage,Electric Stimulation,Hot Packs, Ultrasound Other Therapeutic Interventions No lumbar spine mobilization d /t instability on past imaging (retrolisthesis) Pelvic realignment and MET as needed Next Visit Focus/Plan Next Note Type Treatment Note Next Visit Plan Diaphragmatic breathing, pain modulation. Sleeping and positioning ergonomics and log roll. Manual: STM to low back , hip mobilizations (future) if tolerated. Flexion biased core bracing in supine and sitting as tolerated with progression to Next session standing trunk strengthening. Initiate HEP: sidelying and seated hip strengthening ( clams, reverse, hip abd). Initiate low back and hip stretching: figure 4, piriformis, standing hip flexor vs oc, calf stretch . can trial counter stretch. Review PRN log roll and body mechanics as needed for bed mobility, (STS review, lifting , hip hinge)
--- NOTE | 2024-04-29 12:20 | PT.OTN ---
Current Diagnoses Stiffness of right hip, not elsewhere classified (04/29/24) Stiffness of left hip, not elsewhere classified (04/29/24) Radiculopathy, site unspecified (04/29/24) Other lack of coordination (04/29/24) Weakness (04/29/24) Physical Therapy Treatment Note PT-OP-A Visit Information Start: 04/21/24 09:19 Freq: Status: Active Protocol: Document 04/29/24 11:33 NM (Rec: 04/29/24 12:20 NM [id number]) Out-Patient Physical Therapy Visit Information Visit Information Visit Type Treatment Note Visit Start Time 11:34 Visit Stop Time 12:15 Visit Number 3 Number of MEMBER OF CONGRESS Visits 0 Evaluation Information Evaluation Date 04/21/24 Precautions Precautions Hx retrolisthesis PT-OP-B Current Condition Start: 04/21/24 09:19 Freq: Status: Active Protocol: Document 04/21/24 11:37 NM (Rec: 04/21/24 12:27 NM [id number]) Current Condition History of Current Condition Current Complaints pain, weakness, poor balance History of Current Condition Pt presents with low back pain . Pain is chronic for 7-8 months. She states that after working in the garden, it started to hurt so much across a big swatch. States that she had trouble with bending. Went to [place] for 2 months to help with dying brother; had difficulty with walking, bending, lifting, twisting. Had to use a walker to help with ambulation. She went to a chiro, which helped. Was having difficulty lying flat. No specific LEANNE. However, has had chronic pain. No longer have Sciatic pain. She reports not the leg. Pt reports was going to a chiro 2x a day for 3x/wk. Received manipulations and had pressure points worked on, which helped. She reports that she also gets a midback-L shoulder blade that spreads and goes away. Pt reports bad low back spasms, sleeping was interrupted. Impairments with walking, sleeping better because pills, bending, lifting, twisting, bed mobility, lying flat until in place. Reports that balance is not at good as used to be; reports that she removed grass to help; states not picking up feet. Reports no changes in bowel, bladder. HAs not had an MRI. Has been drinking wine but stopped due to pill intake Prior Treatments and Tests Lumbar spine X-ray 02/2023- Impression: Limited range of motion and multilevel lumbar spine spondylosis, most notably L4-L5 and L5-S1. Current Functional Impairments (Reported) Functional Limitations- ADL's pain with donning/doffing socks, donning/doffing pants pain with all household ADLs does not perform due to pain Functional Limitations- Mobility/Gait sitting- w/ heating pad 20 min standing and ambulating- few minutes STS Transfers- catching with extension PT-OP-C Subjective Start: 04/21/24 09:19 Freq: Status: Active Protocol: Document 04/29/24 11:33 NM (Rec: 04/29/24 12:20 NM [id number]) OP-PT Subjective Patient Comments Patient Comments Pt reports back doing better but depends on what she's trying to do. She reports that her back is 3/10 today. Reports that after last session, 10/22. Pt planted amaryllis and paper whites, needed heating pad and medication following, 11/22. Exercises are going well but reports that she feels like it 's progress PT-OP-E Functional Tests Start: 04/21/24 09:19 Freq: Status: Active Protocol: Document 04/21/24 11:37 NM (Rec: 04/21/24 12:27 NM [id number]) Functional Tests Five Times Sit to Stand Test Score unable to complete at this time d/t pain PT-OP-F Manual Assessment Start: 04/21/24 09:19 Freq: Status: Active Protocol: Document 04/21/24 11:37 NM (Rec: 04/21/24 12:27 NM [id number]) Manual Assessments Soft Tissue Assessment Soft Tissue Mobility Assessment Increased restrictions of thoracic and lumbar paraspinals, lat, QL, hip flexors Joint Mobility Assessment Joint Mobility Assessment Hypermobility of lumbar spinous processes with PA springing in sitting and prone , hypomobility of hips B R>L PT-OP-G Mobility & Gait Start: 04/21/24 09:19 Freq: Status: Active Protocol: Document 04/21/24 11:37 NM (Rec: 04/21/24 12:27 NM [id number]) OP Mobility Evaluation Transfers Sit to Stand Requires BUE to push up from chair, must pause in coming to stand d/t pain OP Gait Assessment Gait Gait Assistance Required: Standby Assistance Distance (Feet) 150 Gait Deviations General Gait Pattern Antalgic,Flexed Trunk,Narrow Based Gait PT-OP-H Neuro Start: 04/21/24 09:19 Freq: Status: Active Protocol: Document 04/21/24 11:37 NM (Rec: 04/21/24 12:27 NM [id number]) Deep Tendon Reflex & Clonus Assessment Deep Tendon Reflex Bilateral Patellar Deep Tendon Reflex 1+ Diminished PT-OP-J Posture/Palpation/Skin Start: 04/21/24 09:19 Freq: Status: Active Protocol: Document 04/21/24 11:37 NM (Rec: 04/21/24 12:27 NM [id number]) Posture Evaluation Position Standing Head/C-Spine Posture Forward Head L-Spine Posture Decreased Lordosis Shoulder Posture (L) Rounded,(R) Rounded Pelvis Posture Posterior Tilted Hip Posture (L) Externally Rotated,(R) Externally Rotated Knee Posture (L) Genu Valgus,(R) Genu Valgus Comments Posture Comments Demos tendency for flexed trunk position instead of extension, even posturally when sitting Palpation Assessment Location lumbar spine Palpation Findings Soft Tissue Tightness,Spasm, Muscle Guarding Palpation Details Tender along lower lumbar spinous and transverse processes, L PSIS and L SIJ Tightness and tenderness along lumbar paraspinals L>R PT-OP-K Range of Motion Start: 04/21/24 09:19 Freq: Status: Active Protocol: Document 04/21/24 11:37 NM (Rec: 04/21/24 12:27 NM [id number]) Lumbar Spine Range of Motion Lumbar Spine Active Percentage Flexion 75 Extension 50 Rotation Left 75 Rotation Right 25 Lateral Flexion Left 50 Lateral Flexion Right 50 Comments IE: pain with all movements ashli ext; demos hitch with eccentric return following flexion Hip Goniometric Range of Motion Hip Right Internal Rotation 20 External Rotation 20 Comments pain with IR > ER Left Internal Rotation 30 External Rotation 30 Comments pain with IR PT-OP-L Special Tests Start: 04/21/24 09:19 Freq: Status: Active Protocol: Document 04/21/24 11:37 NM (Rec: 04/21/24 12:27 NM [id number]) Special Tests Lumbar Spine Special Tests Distraction Test Results + Yo/Quadrant Test Results + Other Special Tests Special Tests Drop test: + (pain with slight heel raise and quick drop onto heels); reproduces familiar pain PT-OP-M Strength Start: 04/21/24 09:19 Freq: Status: Active Protocol: Document 04/21/24 11:37 NM (Rec: 04/21/24 12:27 NM [id number]) Trunk Strength Trunk Manual Muscle Testing Flexion 3+ Fair+ Extension 3+ Fair+ Rotation Left 3+ Fair+ Rotation Right 3+ Fair+ Lateral Flexion Left 3+ Fair+ Lateral Flexion Right 3+ Fair+ Comments IE: pain with resisted ext Hip Strength Hip Manual Muscle Testing Right Flexion (L2) 3+ Fair+ Extension (S1) 3+ Fair+ Abduction 4- Good- Adduction 4- Good- External Rotation 4- Good- Internal Rotation 3+ Fair+ Comments pain with IR, hip ext, abd d/t core stabilization Left Flexion (L2) 3+ Fair+ Extension (S1) 3+ Fair+ Abduction 3+ Fair+ Adduction 4- Good- External Rotation 4- Good- Internal Rotation 3+ Fair+ Comments pain with IR Knee Strength Knee Manual Muscle Testing Right Flexion (S2) 4- Good- Extension (L3) 4- Good- Left Flexion (S2) 4- Good- Extension (L3) 4- Good- Ankle/Foot Strength Ankle and Foot Manual Muscle Testing Right Dorsiflexion (L4) 3+ Fair+ Plantarflexion (S1) 4- Good- Comments tested in sitting Left Dorsiflexion (L4) 4- Good- Plantarflexion (S1) 4- Good- Comments tested in sitting PT-OP-Q Treatments Start: 04/21/24 09:19 Freq: Status: Active Protocol: Document 04/29/24 11:33 NM (Rec: 04/29/24 12:20 NM [id number]) Therapeutic Exercises Supine Exercises bridge Supine Exercise Name segmental bridge (HEP) Side bilateral Reps/Minutes 10 ea TrA activation Supine Exercise Name 1. activation w/ breath, 2. BKFO, 3. march from hooklying (HEP) Side bilateral Resistance AROM Reps/Minutes 1. 10 w/ 2, 2. 10 ea, 3. 10 ea Comments prn cues for correct execution Sidelying Exercises reverse clam Sidelying Exercise Name HEP Side bilateral Resistance AROM Equipment Used pillow between legs for comfort Reps/Minutes 15 ea Comments self tactile cue at hips for trunk clam Sidelying Exercise Name HEP Side bilateral Resistance AROM Equipment Used pillow between legs for comfort Reps/Minutes 15 ea side Comments self tactile cue at hips for trunk stab; limited ROM Manual Therapy Treatment Consent Patient gave verbal consent for manual Yes treatment Soft Tissue Mobilization lumbar spine Body Location paraspinals, glutes bilateral Mobilization Type Cross-Friction,Rolling, Sustained Pressure Intensity/Depth Moderate Body Position Sidelying Comments also intervertebral tissue PT-OP-T Assessment and Plan Start: 04/21/24 09:19 Freq: Status: Active Protocol: Document 04/29/24 11:33 NM (Rec: 04/29/24 12:20 NM [id number]) Physical Therapy Assessment Goals Four Impairment compliance with HEP Combat Control Manager Goal (LTG) Pt will report compliance with HEP at least 3x/wk in order to maximize progression with PT and transition to maintenance program LTG Duration 10 weeks Three Impairment pain with transfers Short Term Goal (STG) Pt will be able to perform at least 8/10 STS without compensation or increase in low back pain in order to demonstrate increased BLE strength and symptom management during transfers Mcfp Goal (LTG) Pt will be able to perform at least 5x STS at age-related norms (12.6 seconds) if appropriate in order to demonstrate increased BLE strength and symptom management during transfers LTG Duration 10 weeks Two Impairment trunk and BLE strength impaired d/t pain and weakness Combat Control Manager Goal (LTG) Pt will increase trunk and BLE strength globally to at least 4/5 MMT without increase in back pain in order to demonstrate improved strength for gait and transfers LTG Duration 10 weeks One Impairment BENJAMIN 58% impairment of ADLs/ IADLs and mobility Short Term Goal (STG) Pt will improve standing and ambulation tolerance to > 10 minutes with back pain <6/10 in order to demonstrate improved symptom management and activity tolerance. STG Duration 6 weeks Combat Control Manager Goal (LTG) Pt will report that she is impaired <25% with ADLs/IADLs due to back pain in order to demonstrate improved symptom management LTG Duration 10 weeks Assessment Summary Assessment Pt presents with more upright posture with ambulation at start and end of session. Good feedback for therapeutic exercises today. Initiated supine core bracing, hip and back strengthening in preparation for standing and sitting strengthening in future sessions. Pt demos good tolerance for supine core bracing with slow progression through various positions requiring multi-joint stability; better feedback for bridges vs sit to stand. Moderate cueing for correct execution and carryover with bed mobility. Education on stabilization training progression and for pain management while performing ADLs. Pt reports no pain at end of session. Pt would benefit from skilled PT for progressive strengthening in addition to functional stability and education on activity modification in order to improve symptom management and ADl tolerance. Physical Therapy Plan Frequency and Duration Frequency of Treatment 2x/Week Duration of treatment (weeks) 10 Plan of Care Start Date 04/21/24 Plan of Care End Date 07/01/24 Therapeutic Interventions Therapeutic Interventions Balance Training,Gait Training ,Home Exercise Program,Joint Mobilizations,Manual Therapy, Neuromuscular Re-education, Orthotic/Prosthetic Management ,Patient/Caregiver Education, Self-Care/Home Management, Sensory Integration,Soft Tissue Mobilization,Taping, Therapeutic Activities, Therapeutic Exercises Modalities Cold Pack/Ice Massage,Electric Stimulation,Hot Packs, Ultrasound Other Therapeutic Interventions No lumbar spine mobilization d /t instability on past imaging (retrolisthesis) Pelvic realignment and MET as needed Next Visit Focus/Plan Next Note Type Treatment Note Next Visit Plan Manual: STM to low back, hip mobilizations (future) if tolerated. Flexion biased core bracing in supine and sitting as tolerated with progression to Next session standing trunk strengthening. cont w/ STS and initiate hip and trunk strenght; can trial hip flex/ abd/ext in standing, lat pull down and pallof Initiate HEP: sidelying and seated hip strengthening ( clams, reverse, hip abd). Initiate low back and hip stretching: figure 4, piriformis, standing hip flexor vs oc, calf stretch . can trial counter stretch. Review PRN log roll and body mechanics as needed for bed mobility, (STS review, lifting , hip hinge)
--- NOTE | 2024-05-02 12:24 | PT.OTN ---
Current Diagnoses Stiffness of right hip, not elsewhere classified (05/02/24) Stiffness of left hip, not elsewhere classified (05/02/24) Radiculopathy, site unspecified (05/02/24) Other lack of coordination (05/02/24) Weakness (05/02/24) Physical Therapy Treatment Note PT-OP-A Visit Information Start: 04/21/24 09:19 Freq: Status: Active Protocol: Document 05/02/24 09:48 AB (Rec: 05/02/24 12:24 AB [id number]) Out-Patient Physical Therapy Visit Information Visit Information Visit Type Treatment Note Visit Start Time 11:35 Visit Stop Time 12:18 Visit Number 4 Number of OCCASIONAL BABYSITTER Visits 1 Evaluation Information Evaluation Date 04/21/24 Precautions Precautions Hx retrolisthesis PT-OP-B Current Condition Start: 04/21/24 09:19 Freq: Status: Active Protocol: Document 04/21/24 11:37 NM (Rec: 04/21/24 12:27 NM [id number]) Current Condition History of Current Condition Current Complaints pain, weakness, poor balance History of Current Condition Pt presents with low back pain . Pain is chronic for 7-8 months. She states that after working in the garden, it started to hurt so much across a big swatch. States that she had trouble with bending. Went to [place] for 2 months to help with dying brother; had difficulty with walking, bending, lifting, twisting. Had to use a walker to help with ambulation. She went to a chiro, which helped. Was having difficulty lying flat. No specific LEANNE. However, has had chronic pain. No longer have Sciatic pain. She reports not the leg. Pt reports was going to a chiro 2x a day for 3x/wk. Received manipulations and had pressure points worked on, which helped. She reports that she also gets a midback-L shoulder blade that spreads and goes away. Pt reports bad low back spasms, sleeping was interrupted. Impairments with walking, sleeping better because pills, bending, lifting, twisting, bed mobility, lying flat until in place. Reports that balance is not at good as used to be; reports that she removed grass to help; states not picking up feet. Reports no changes in bowel, bladder. HAs not had an MRI. Has been drinking wine but stopped due to pill intake Prior Treatments and Tests Lumbar spine X-ray 02/2023- Impression: Limited range of motion and multilevel lumbar spine spondylosis, most notably L4-L5 and L5-S1. Current Functional Impairments (Reported) Functional Limitations- ADL's pain with donning/doffing socks, donning/doffing pants pain with all household ADLs does not perform due to pain Functional Limitations- Mobility/Gait sitting- w/ heating pad 20 min standing and ambulating- few minutes STS Transfers- catching with extension PT-OP-C Subjective Start: 04/21/24 09:19 Freq: Status: Active Protocol: Document 05/02/24 09:48 AB (Rec: 05/02/24 12:24 AB [id number]) OP-PT Subjective Patient Comments Patient Comments Patient reports the exercise where she tries to tighten abdominals is making a difference. Patient rates right sided back pain 2/10 start of session. Patient reports she hasn't taken a pain pill in 4 days. PT-OP-E Functional Tests Start: 04/21/24 09:19 Freq: Status: Active Protocol: Document 04/21/24 11:37 NM (Rec: 04/21/24 12:27 NM [id number]) Functional Tests Five Times Sit to Stand Test Score unable to complete at this time d/t pain PT-OP-F Manual Assessment Start: 04/21/24 09:19 Freq: Status: Active Protocol: Document 04/21/24 11:37 NM (Rec: 04/21/24 12:27 NM [id number]) Manual Assessments Soft Tissue Assessment Soft Tissue Mobility Assessment Increased restrictions of thoracic and lumbar paraspinals, lat, QL, hip flexors Joint Mobility Assessment Joint Mobility Assessment Hypermobility of lumbar spinous processes with PA springing in sitting and prone , hypomobility of hips B R>L PT-OP-G Mobility & Gait Start: 04/21/24 09:19 Freq: Status: Active Protocol: Document 04/21/24 11:37 NM (Rec: 04/21/24 12:27 NM [id number]) OP Mobility Evaluation Transfers Sit to Stand Requires BUE to push up from chair, must pause in coming to stand d/t pain OP Gait Assessment Gait Gait Assistance Required: Standby Assistance Distance (Feet) 150 Gait Deviations General Gait Pattern Antalgic,Flexed Trunk,Narrow Based Gait PT-OP-H Neuro Start: 04/21/24 09:19 Freq: Status: Active Protocol: Document 04/21/24 11:37 NM (Rec: 04/21/24 12:27 NM [id number]) Deep Tendon Reflex & Clonus Assessment Deep Tendon Reflex Bilateral Patellar Deep Tendon Reflex 1+ Diminished PT-OP-J Posture/Palpation/Skin Start: 04/21/24 09:19 Freq: Status: Active Protocol: Document 04/21/24 11:37 NM (Rec: 04/21/24 12:27 NM [id number]) Posture Evaluation Position Standing Head/C-Spine Posture Forward Head L-Spine Posture Decreased Lordosis Shoulder Posture (L) Rounded,(R) Rounded Pelvis Posture Posterior Tilted Hip Posture (L) Externally Rotated,(R) Externally Rotated Knee Posture (L) Genu Valgus,(R) Genu Valgus Comments Posture Comments Demos tendency for flexed trunk position instead of extension, even posturally when sitting Palpation Assessment Location lumbar spine Palpation Findings Soft Tissue Tightness,Spasm, Muscle Guarding Palpation Details Tender along lower lumbar spinous and transverse processes, L PSIS and L SIJ Tightness and tenderness along lumbar paraspinals L>R PT-OP-K Range of Motion Start: 04/21/24 09:19 Freq: Status: Active Protocol: Document 04/21/24 11:37 NM (Rec: 04/21/24 12:27 NM [id number]) Lumbar Spine Range of Motion Lumbar Spine Active Percentage Flexion 75 Extension 50 Rotation Left 75 Rotation Right 25 Lateral Flexion Left 50 Lateral Flexion Right 50 Comments IE: pain with all movements ashli ext; demos hitch with eccentric return following flexion Hip Goniometric Range of Motion Hip Right Internal Rotation 20 External Rotation 20 Comments pain with IR > ER Left Internal Rotation 30 External Rotation 30 Comments pain with IR PT-OP-L Special Tests Start: 04/21/24 09:19 Freq: Status: Active Protocol: Document 04/21/24 11:37 NM (Rec: 04/21/24 12:27 NM [id number]) Special Tests Lumbar Spine Special Tests Distraction Test Results + Yo/Quadrant Test Results + Other Special Tests Special Tests Drop test: + (pain with slight heel raise and quick drop onto heels); reproduces familiar pain PT-OP-M Strength Start: 04/21/24 09:19 Freq: Status: Active Protocol: Document 04/21/24 11:37 NM (Rec: 04/21/24 12:27 NM [id number]) Trunk Strength Trunk Manual Muscle Testing Flexion 3+ Fair+ Extension 3+ Fair+ Rotation Left 3+ Fair+ Rotation Right 3+ Fair+ Lateral Flexion Left 3+ Fair+ Lateral Flexion Right 3+ Fair+ Comments IE: pain with resisted ext Hip Strength Hip Manual Muscle Testing Right Flexion (L2) 3+ Fair+ Extension (S1) 3+ Fair+ Abduction 4- Good- Adduction 4- Good- External Rotation 4- Good- Internal Rotation 3+ Fair+ Comments pain with IR, hip ext, abd d/t core stabilization Left Flexion (L2) 3+ Fair+ Extension (S1) 3+ Fair+ Abduction 3+ Fair+ Adduction 4- Good- External Rotation 4- Good- Internal Rotation 3+ Fair+ Comments pain with IR Knee Strength Knee Manual Muscle Testing Right Flexion (S2) 4- Good- Extension (L3) 4- Good- Left Flexion (S2) 4- Good- Extension (L3) 4- Good- Ankle/Foot Strength Ankle and Foot Manual Muscle Testing Right Dorsiflexion (L4) 3+ Fair+ Plantarflexion (S1) 4- Good- Comments tested in sitting Left Dorsiflexion (L4) 4- Good- Plantarflexion (S1) 4- Good- Comments tested in sitting PT-OP-Q Treatments Start: 04/21/24 09:19 Freq: Status: Active Protocol: Document 05/02/24 09:48 AB (Rec: 05/02/24 12:24 AB [id number]) Therapeutic Exercises Supine Exercises abdominal bracing with LE extension Side bilateral Reps/Minutes X10 Comments Verbal cues TrA activation Supine Exercise Name 1. activation w/ breath, 2. BKFO, 3. march from hooklying (HEP) Side bilateral Resistance AROM Reps/Minutes 1. X 2 2. X10 piriformis stretch Supine Exercise Name HEP Side bilateral Reps/Minutes one minute each LE Comments verbal and tactile cues Sidelying Exercises reverse clam Sidelying Exercise Name HEP Side bilateral Resistance level one light blue band HEP Reps/Minutes 15 ea Comments monitored for pain clam Sidelying Exercise Name HEP Side bilateral Resistance level one light blue HEP Equipment Used pillow between legs for comfort Reps/Minutes 15 ea side Comments Monitored for pain Sitting Exercises seated hip abd with band Sitting Exercise Name HEP Side bilateral Resistance tuolumne green band Reps/Minutes one minute Comments verbal cues Standing Exercises sit to stand with band Standing Exercise Name from a slightly raised seat height Side bilateral Resistance level 3 band Comments close supervision Pallof press Side bilateral Resistance level one band Reps/Minutes X15 Comments verbal and visual cues Manual Therapy Treatment Consent Patient gave verbal consent for manual Yes treatment Soft Tissue Mobilization lumbar spine Body Location paraspinals, glutes bilateral Mobilization Type Cross-Friction,Rolling, Sustained Pressure Intensity/Depth Superficial Body Position Sidelying PT-OP-T Assessment and Plan Start: 04/21/24 09:19 Freq: Status: Active Protocol: Document 05/02/24 09:48 AB (Rec: 05/02/24 12:24 AB [id number]) Physical Therapy Assessment Goals Four Impairment compliance with HEP Alf Goal (LTG) Pt will report compliance with HEP at least 3x/wk in order to maximize progression with PT and transition to maintenance program LTG Duration 10 weeks Three Impairment pain with transfers Short Term Goal (STG) Pt will be able to perform at least 8/10 STS without compensation or increase in low back pain in order to demonstrate increased BLE strength and symptom management during transfers Master Carpenter Goal (LTG) Pt will be able to perform at least 5x STS at age-related norms (12.6 seconds) if appropriate in order to demonstrate increased BLE strength and symptom management during transfers LTG Duration 10 weeks Two Impairment trunk and BLE strength impaired d/t pain and weakness Alf Goal (LTG) Pt will increase trunk and BLE strength globally to at least 4/5 MMT without increase in back pain in order to demonstrate improved strength for gait and transfers LTG Duration 10 weeks One Impairment BENJAMIN 58% impairment of ADLs/ IADLs and mobility Short Term Goal (STG) Pt will improve standing and ambulation tolerance to > 10 minutes with back pain <6/10 in order to demonstrate improved symptom management and activity tolerance. STG Duration 6 weeks Master Carpenter Goal (LTG) Pt will report that she is impaired <25% with ADLs/IADLs due to back pain in order to demonstrate improved symptom management LTG Duration 10 weeks Assessment Summary Assessment Mehnaz reports having no pain end of session comments she felt like her muscles worked gesturing to LS area. Physical Therapy Plan Frequency and Duration Frequency of Treatment 2x/Week Duration of treatment (weeks) 10 Plan of Care Start Date 04/21/24 Plan of Care End Date 07/01/24 Next Visit Focus/Plan Next Note Type Treatment Note Next Visit Plan Manual: STM to low back, hip mobilizations (future) if tolerated. Flexion biased core bracing in supine and sitting as tolerated with progression to Next session standing trunk strengthening. cont w/ STS and initiate hip and trunk strenght; can trial hip flex/ abd/ext in standing, lat pull down and pallof Initiate HEP: sidelying and seated hip strengthening ( clams, reverse, hip abd). Initiate low back and hip stretching: figure 4, piriformis, standing hip flexor vs oc, calf stretch . can trial counter stretch. Review PRN log roll and body mechanics as needed for bed mobility, (STS review, lifting , hip hinge)
--- NOTE | 2024-05-04 12:19 | PT.OTN ---
Current Diagnoses Stiffness of right hip, not elsewhere classified (05/04/24) Stiffness of left hip, not elsewhere classified (05/04/24) Radiculopathy, site unspecified (05/04/24) Other lack of coordination (05/04/24) Weakness (05/04/24) Physical Therapy Treatment Note PT-OP-A Visit Information Start: 04/21/24 09:19 Freq: Status: Active Protocol: Document 05/04/24 11:32 NM (Rec: 05/04/24 12:19 NM [id number]) Out-Patient Physical Therapy Visit Information Visit Information Visit Type Treatment Note Visit Start Time 11:32 Visit Stop Time 12:12 Visit Number 5 Evaluation Information Evaluation Date 04/21/24 Precautions Precautions Hx retrolisthesis PT-OP-B Current Condition Start: 04/21/24 09:19 Freq: Status: Active Protocol: Document 04/21/24 11:37 NM (Rec: 04/21/24 12:27 NM [id number]) Current Condition History of Current Condition Current Complaints pain, weakness, poor balance History of Current Condition Pt presents with low back pain . Pain is chronic for 7-8 months. She states that after working in the garden, it started to hurt so much across a big swatch. States that she had trouble with bending. Went to [place] for 2 months to help with dying brother; had difficulty with walking, bending, lifting, twisting. Had to use a walker to help with ambulation. She went to a chiro, which helped. Was having difficulty lying flat. No specific LEANNE. However, has had chronic pain. No longer have Sciatic pain. She reports not the leg. Pt reports was going to a chiro 2x a day for 3x/wk. Received manipulations and had pressure points worked on, which helped. She reports that she also gets a midback-L shoulder blade that spreads and goes away. Pt reports bad low back spasms, sleeping was interrupted. Impairments with walking, sleeping better because pills, bending, lifting, twisting, bed mobility, lying flat until in place. Reports that balance is not at good as used to be; reports that she removed grass to help; states not picking up feet. Reports no changes in bowel, bladder. HAs not had an MRI. Has been drinking wine but stopped due to pill intake Prior Treatments and Tests Lumbar spine X-ray 02/2023- Impression: Limited range of motion and multilevel lumbar spine spondylosis, most notably L4-L5 and L5-S1. Current Functional Impairments (Reported) Functional Limitations- ADL's pain with donning/doffing socks, donning/doffing pants pain with all household ADLs does not perform due to pain Functional Limitations- Mobility/Gait sitting- w/ heating pad 20 min standing and ambulating- few minutes STS Transfers- catching with extension PT-OP-C Subjective Start: 04/21/24 09:19 Freq: Status: Active Protocol: Document 05/04/24 11:32 NM (Rec: 05/04/24 12:19 NM [id number]) OP-PT Subjective Patient Comments Patient Comments Pt reports more mid back pain from Thursday. She uses heating pad following PT sessions. She is planning to clear briars later today. Pt reports 2/10 back pain. Enjoys core bracing exercises and hip strengthening. PT-OP-E Functional Tests Start: 04/21/24 09:19 Freq: Status: Active Protocol: Document 04/21/24 11:37 NM (Rec: 04/21/24 12:27 NM [id number]) Functional Tests Five Times Sit to Stand Test Score unable to complete at this time d/t pain PT-OP-F Manual Assessment Start: 04/21/24 09:19 Freq: Status: Active Protocol: Document 04/21/24 11:37 NM (Rec: 04/21/24 12:27 NM [id number]) Manual Assessments Soft Tissue Assessment Soft Tissue Mobility Assessment Increased restrictions of thoracic and lumbar paraspinals, lat, QL, hip flexors Joint Mobility Assessment Joint Mobility Assessment Hypermobility of lumbar spinous processes with PA springing in sitting and prone , hypomobility of hips B R>L PT-OP-G Mobility & Gait Start: 04/21/24 09:19 Freq: Status: Active Protocol: Document 04/21/24 11:37 NM (Rec: 04/21/24 12:27 NM [id number]) OP Mobility Evaluation Transfers Sit to Stand Requires BUE to push up from chair, must pause in coming to stand d/t pain OP Gait Assessment Gait Gait Assistance Required: Standby Assistance Distance (Feet) 150 Gait Deviations General Gait Pattern Antalgic,Flexed Trunk,Narrow Based Gait PT-OP-H Neuro Start: 04/21/24 09:19 Freq: Status: Active Protocol: Document 04/21/24 11:37 NM (Rec: 04/21/24 12:27 NM [id number]) Deep Tendon Reflex & Clonus Assessment Deep Tendon Reflex Bilateral Patellar Deep Tendon Reflex 1+ Diminished PT-OP-J Posture/Palpation/Skin Start: 04/21/24 09:19 Freq: Status: Active Protocol: Document 04/21/24 11:37 NM (Rec: 04/21/24 12:27 NM [id number]) Posture Evaluation Position Standing Head/C-Spine Posture Forward Head L-Spine Posture Decreased Lordosis Shoulder Posture (L) Rounded,(R) Rounded Pelvis Posture Posterior Tilted Hip Posture (L) Externally Rotated,(R) Externally Rotated Knee Posture (L) Genu Valgus,(R) Genu Valgus Comments Posture Comments Demos tendency for flexed trunk position instead of extension, even posturally when sitting Palpation Assessment Location lumbar spine Palpation Findings Soft Tissue Tightness,Spasm, Muscle Guarding Palpation Details Tender along lower lumbar spinous and transverse processes, L PSIS and L SIJ Tightness and tenderness along lumbar paraspinals L>R PT-OP-K Range of Motion Start: 04/21/24 09:19 Freq: Status: Active Protocol: Document 04/21/24 11:37 NM (Rec: 04/21/24 12:27 NM [id number]) Lumbar Spine Range of Motion Lumbar Spine Active Percentage Flexion 75 Extension 50 Rotation Left 75 Rotation Right 25 Lateral Flexion Left 50 Lateral Flexion Right 50 Comments IE: pain with all movements ashli ext; demos hitch with eccentric return following flexion Hip Goniometric Range of Motion Hip Right Internal Rotation 20 External Rotation 20 Comments pain with IR > ER Left Internal Rotation 30 External Rotation 30 Comments pain with IR PT-OP-L Special Tests Start: 04/21/24 09:19 Freq: Status: Active Protocol: Document 04/21/24 11:37 NM (Rec: 04/21/24 12:27 NM [id number]) Special Tests Lumbar Spine Special Tests Distraction Test Results + Yo/Quadrant Test Results + Other Special Tests Special Tests Drop test: + (pain with slight heel raise and quick drop onto heels); reproduces familiar pain PT-OP-M Strength Start: 04/21/24 09:19 Freq: Status: Active Protocol: Document 04/21/24 11:37 NM (Rec: 04/21/24 12:27 NM [id number]) Trunk Strength Trunk Manual Muscle Testing Flexion 3+ Fair+ Extension 3+ Fair+ Rotation Left 3+ Fair+ Rotation Right 3+ Fair+ Lateral Flexion Left 3+ Fair+ Lateral Flexion Right 3+ Fair+ Comments IE: pain with resisted ext Hip Strength Hip Manual Muscle Testing Right Flexion (L2) 3+ Fair+ Extension (S1) 3+ Fair+ Abduction 4- Good- Adduction 4- Good- External Rotation 4- Good- Internal Rotation 3+ Fair+ Comments pain with IR, hip ext, abd d/t core stabilization Left Flexion (L2) 3+ Fair+ Extension (S1) 3+ Fair+ Abduction 3+ Fair+ Adduction 4- Good- External Rotation 4- Good- Internal Rotation 3+ Fair+ Comments pain with IR Knee Strength Knee Manual Muscle Testing Right Flexion (S2) 4- Good- Extension (L3) 4- Good- Left Flexion (S2) 4- Good- Extension (L3) 4- Good- Ankle/Foot Strength Ankle and Foot Manual Muscle Testing Right Dorsiflexion (L4) 3+ Fair+ Plantarflexion (S1) 4- Good- Comments tested in sitting Left Dorsiflexion (L4) 4- Good- Plantarflexion (S1) 4- Good- Comments tested in sitting PT-OP-Q Treatments Start: 04/21/24 09:19 Freq: Status: Active Protocol: Document 05/04/24 11:32 NM (Rec: 05/04/24 12:19 NM [id number]) Therapeutic Exercises Supine Exercises TrA activation Supine Exercise Name 1. august from /, 2. Lat pull down from Side bilateral Reps/Minutes 1. 10 ea, 2. Comments mod cues core brace, no arch Sitting Exercises seated hip abd with band Sitting Exercise Name HEP review Side bilateral Resistance [place] band Reps/Minutes 2x60 Standing Exercises modified bird dog Standing Exercise Name opp arm and leg (non-alt) Side bilateral Reps/Minutes 10 ea Comments pain free but challenging to coord sit to stand with band Standing Exercise Name standard chair (HEP) Side bilateral Resistance level 3 band Reps/Minutes 15 Comments close supervision; cued more WS, better with ant reach Pallof press Side bilateral Resistance level one band (1 band) Reps/Minutes 15 ea Comments verbal and visual cues; mild back pain Other Exercises counter top stretch Other Exercise Name on high plinth Side bilateral Reps/Minutes 3x10 Comments pain free Manual Therapy Treatment Consent Patient gave verbal consent for manual Yes treatment Soft Tissue Mobilization lumbar spine Body Location paraspinals, glutes bilateral Mobilization Type Cross-Friction,Rolling, Sustained Pressure Intensity/Depth Superficial Body Position Sidelying PT-OP-T Assessment and Plan Start: 04/21/24 09:19 Freq: Status: Active Protocol: Document 05/04/24 11:32 NM (Rec: 05/04/24 12:19 NM [id number]) Physical Therapy Assessment Goals Four Impairment compliance with HEP Prison Goal (LTG) Pt will report compliance with HEP at least 3x/wk in order to maximize progression with PT and transition to maintenance program LTG Duration 10 weeks Three Impairment pain with transfers Short Term Goal (STG) Pt will be able to perform at least 8/10 STS without compensation or increase in low back pain in order to demonstrate increased BLE strength and symptom management during transfers Stock Feeder Goal (LTG) Pt will be able to perform at least 5x STS at age-related norms (12.6 seconds) if appropriate in order to demonstrate increased BLE strength and symptom management during transfers LTG Duration 10 weeks Two Impairment trunk and BLE strength impaired d/t pain and weakness Prison Goal (LTG) Pt will increase trunk and BLE strength globally to at least 4/5 MMT without increase in back pain in order to demonstrate improved strength for gait and transfers LTG Duration 10 weeks One Impairment BENJAMIN 58% impairment of ADLs/ IADLs and mobility Short Term Goal (STG) Pt will improve standing and ambulation tolerance to > 10 minutes with back pain <6/10 in order to demonstrate improved symptom management and activity tolerance. STG Duration 6 weeks Prison Goal (LTG) Pt will report that she is impaired <25% with ADLs/IADLs due to back pain in order to demonstrate improved symptom management LTG Duration 10 weeks Assessment Summary Assessment Pt reports no pain at end of session. Good feedback and improved form with STS. Cued initially for weight shift and glute activation with band for improved lumbopelvic stability. Continued with and progressed supine core strengthening. Trialed standing core strengthening but still aggravating for pt symptoms. Pallof press anti- rotation causes increased symptoms even with cueing. PT educated pt to monitor symptoms with yard work and educated on body mechanics, activity tolerance, and modification. Pt would continue to benefit from skilled PT for progressive strengthening in order to improve symptom management and ADL tolerance. Physical Therapy Plan Frequency and Duration Frequency of Treatment 2x/Week Duration of treatment (weeks) 10 Plan of Care Start Date 04/21/24 Plan of Care End Date 07/01/24 Therapeutic Interventions Therapeutic Interventions Balance Training,Gait Training ,Home Exercise Program,Joint Mobilizations,Manual Therapy, Neuromuscular Re-education, Orthotic/Prosthetic Management ,Patient/Caregiver Education, Self-Care/Home Management, Sensory Integration,Soft Tissue Mobilization,Taping, Therapeutic Activities, Therapeutic Exercises Modalities Cold Pack/Ice Massage,Electric Stimulation,Hot Packs, Ultrasound Other Therapeutic Interventions No lumbar spine mobilization d /t instability on past imaging (retrolisthesis) Pelvic realignment and MET as needed Next Visit Focus/Plan Next Note Type Treatment Note Next Visit Plan Manual: STM to low back, hip mobilizations (future) if tolerated. Flexion biased core bracing in supine and sitting as tolerated with progression to Next session standing trunk strengthening. cont w/ STS and initiate hip and trunk strenght; can trial hip flex/ abd/ext in standing, lat pull down and pallof Initiate HEP: sidelying and seated hip strengthening ( clams, reverse, hip abd). Initiate low back and hip stretching: figure 4, piriformis, standing hip flexor vs oc, calf stretch . can trial counter stretch. Review PRN log roll and body mechanics as needed for bed mobility, (STS review, lifting , hip hinge)
--- NOTE | 2024-05-18 13:00 | PT.OTN ---
Current Diagnoses Stiffness of right hip, not elsewhere classified (05/18/24) Stiffness of left hip, not elsewhere classified (05/18/24) Radiculopathy, site unspecified (05/18/24) Other lack of coordination (05/18/24) Weakness (05/18/24) Physical Therapy Treatment Note PT-OP-A Visit Information Start: 04/21/24 09:19 Freq: Status: Active Protocol: Document 05/18/24 10:44 NM (Rec: 05/18/24 11:30 NM [id number]) Out-Patient Physical Therapy Visit Information Visit Information Visit Type Progress Note Visit Start Time 10:46 Visit Stop Time 11:30 Visit Number 6 Evaluation Information Evaluation Date 04/21/24 Precautions Precautions Hx retrolisthesis PT-OP-B Current Condition Start: 04/21/24 09:19 Freq: Status: Active Protocol: Document 04/21/24 11:37 NM (Rec: 04/21/24 12:27 NM [id number]) Current Condition History of Current Condition Current Complaints pain, weakness, poor balance History of Current Condition Pt presents with low back pain . Pain is chronic for 7-8 months. She states that after working in the garden, it started to hurt so much across a big swatch. States that she had trouble with bending. Went to [place] for 2 months to help with dying brother; had difficulty with walking, bending, lifting, twisting. Had to use a walker to help with ambulation. She went to a chiro, which helped. Was having difficulty lying flat. No specific LEANNE. However, has had chronic pain. No longer have Sciatic pain. She reports not the leg. Pt reports was going to a chiro 2x a day for 3x/wk. Received manipulations and had pressure points worked on, which helped. She reports that she also gets a midback-L shoulder blade that spreads and goes away. Pt reports bad low back spasms, sleeping was interrupted. Impairments with walking, sleeping better because pills, bending, lifting, twisting, bed mobility, lying flat until in place. Reports that balance is not at good as used to be; reports that she removed grass to help; states not picking up feet. Reports no changes in bowel, bladder. HAs not had an MRI. Has been drinking wine but stopped due to pill intake Prior Treatments and Tests Lumbar spine X-ray 02/2023- Impression: Limited range of motion and multilevel lumbar spine spondylosis, most notably L4-L5 and L5-S1. Current Functional Impairments (Reported) Functional Limitations- ADL's pain with donning/doffing socks, donning/doffing pants pain with all household ADLs does not perform due to pain Functional Limitations- Mobility/Gait sitting- w/ heating pad 20 min standing and ambulating- few minutes STS Transfers- catching with extension PT-OP-C Subjective Start: 04/21/24 09:19 Freq: Status: Active Protocol: Document 05/18/24 10:44 NM (Rec: 05/18/24 11:30 NM [id number]) OP-PT Subjective Patient Comments Patient Comments Pt reports doing worse. States that she just got over being ill with the stomach bug, which did not help her back. She brought her chiro. Has not taken any pills for 6 days due to pain; states eating negates the pills. Pt reports midback and low back pain still. She reports difficulty with watering plants. Pt reports 5/10 PT-OP-E Functional Tests Start: 04/21/24 09:19 Freq: Status: Active Protocol: Document 04/21/24 11:37 NM (Rec: 04/21/24 12:27 NM [id number]) Functional Tests Five Times Sit to Stand Test Score unable to complete at this time d/t pain PT-OP-F Manual Assessment Start: 04/21/24 09:19 Freq: Status: Active Protocol: Document 04/21/24 11:37 NM (Rec: 04/21/24 12:27 NM [id number]) Manual Assessments Soft Tissue Assessment Soft Tissue Mobility Assessment Increased restrictions of thoracic and lumbar paraspinals, lat, QL, hip flexors Joint Mobility Assessment Joint Mobility Assessment Hypermobility of lumbar spinous processes with PA springing in sitting and prone , hypomobility of hips B R>L PT-OP-G Mobility & Gait Start: 04/21/24 09:19 Freq: Status: Active Protocol: Document 04/21/24 11:37 NM (Rec: 04/21/24 12:27 NM [id number]) OP Mobility Evaluation Transfers Sit to Stand Requires BUE to push up from chair, must pause in coming to stand d/t pain OP Gait Assessment Gait Gait Assistance Required: Standby Assistance Distance (Feet) 150 Gait Deviations General Gait Pattern Antalgic,Flexed Trunk,Narrow Based Gait PT-OP-H Neuro Start: 04/21/24 09:19 Freq: Status: Active Protocol: Document 04/21/24 11:37 NM (Rec: 04/21/24 12:27 NM [id number]) Deep Tendon Reflex & Clonus Assessment Deep Tendon Reflex Bilateral Patellar Deep Tendon Reflex 1+ Diminished PT-OP-J Posture/Palpation/Skin Start: 04/21/24 09:19 Freq: Status: Active Protocol: Document 04/21/24 11:37 NM (Rec: 04/21/24 12:27 NM [id number]) Posture Evaluation Position Standing Head/C-Spine Posture Forward Head L-Spine Posture Decreased Lordosis Shoulder Posture (L) Rounded,(R) Rounded Pelvis Posture Posterior Tilted Hip Posture (L) Externally Rotated,(R) Externally Rotated Knee Posture (L) Genu Valgus,(R) Genu Valgus Comments Posture Comments Demos tendency for flexed trunk position instead of extension, even posturally when sitting Palpation Assessment Location lumbar spine Palpation Findings Soft Tissue Tightness,Spasm, Muscle Guarding Palpation Details Tender along lower lumbar spinous and transverse processes, L PSIS and L SIJ Tightness and tenderness along lumbar paraspinals L>R PT-OP-K Range of Motion Start: 04/21/24 09:19 Freq: Status: Active Protocol: Document 05/18/24 10:44 NM (Rec: 05/18/24 11:30 NM [id number]) Lumbar Spine Range of Motion Lumbar Spine Active Percentage Flexion 75 Extension 50 Rotation Left 75 Rotation Right 25 Lateral Flexion Left 50 Lateral Flexion Right 50 Comments IE: pain with all movements ashli ext; demos hitch with eccentric return following flexion 05/18/24: 80% flex, 50% ext, 75 % B LF, 75% rotation PT-OP-L Special Tests Start: 04/21/24 09:19 Freq: Status: Active Protocol: Document 04/21/24 11:37 NM (Rec: 04/21/24 12:27 NM [id number]) Special Tests Lumbar Spine Special Tests Distraction Test Results + Yo/Quadrant Test Results + Other Special Tests Special Tests Drop test: + (pain with slight heel raise and quick drop onto heels); reproduces familiar pain PT-OP-M Strength Start: 04/21/24 09:19 Freq: Status: Active Protocol: Document 05/18/24 10:44 NM (Rec: 05/18/24 11:30 NM [id number]) Trunk Strength Trunk Manual Muscle Testing Flexion 4- Good- Extension 4- Good- Rotation Left 4- Good- Rotation Right 4- Good- Lateral Flexion Left 4- Good- Lateral Flexion Right 4- Good- Comments IE: pain with resisted ext 05/18/24: 4-/5 Hip Strength Hip Manual Muscle Testing Right Flexion (L2) 3+ Fair+ Extension (S1) 3+ Fair+ Abduction 4- Good- Adduction 4- Good- External Rotation 4- Good- Internal Rotation 3+ Fair+ Comments pain with IR, hip ext, abd d/t core stabilization Left Flexion (L2) 3+ Fair+ Extension (S1) 3+ Fair+ Abduction 3+ Fair+ Adduction 4- Good- External Rotation 4- Good- Internal Rotation 3+ Fair+ Comments pain with IR PT-OP-Q Treatments Start: 04/21/24 09:19 Freq: Status: Active Protocol: Document 05/18/24 10:44 NM (Rec: 05/18/24 11:30 NM [id number]) Therapeutic Exercises Supine Exercises glute isometric Supine Exercise Name @ wall- heels elevated, supported on blue [place] virgin islander ball Side bilateral Reps/Minutes 2x10 w/ 5 hold submax Comments cued form, breathwork, core contract bridge Supine Exercise Name on brit[place] virgin islander ball Side bilateral Equipment Used from hooklying Reps/Minutes 10 Comments w/ ppt, segmental TrA activation Supine Exercise Name w/ KTC on ball Side bilateral Resistance lvl 1 band at feet Reps/Minutes 2x10 Comments pain free; cued core brace and breathing Standing Exercises resisted stepping Standing Exercise Name abduction Side bilateral Resistance lvl 1 band at thighs Reps/Minutes 5x5 ft ea dreiction Comments denies pain in back sit to stand with band Standing Exercise Name standard chair (HEP review) Side bilateral Resistance level 3 band Reps/Minutes 10 Comments close supervision; cued more WS, better with ant reach Manual Therapy Treatment Consent Patient gave verbal consent for manual Yes treatment Soft Tissue Mobilization lumbar spine Body Location B paraspinals, glutes bilateral Mobilization Type Cross-Friction,Rolling, Sustained Pressure Intensity/Depth Superficial Body Position Sidelying Comments Positioned with pillow between legs. Increased tenderness and tightness at B QLs, PT-OP-T Assessment and Plan Start: 04/21/24 09:19 Freq: Status: Active Protocol: Document 05/18/24 10:44 NM (Rec: 05/18/24 11:30 NM [id number]) Physical Therapy Assessment Goals Four Impairment compliance with HEP Shelter Goal (LTG) Pt will report compliance with HEP at least 3x/wk in order to maximize progression with PT and transition to maintenance program 05/18/24: performing HEP 3x/wk LTG Duration 10 weeks Three Impairment pain with transfers Short Term Goal (STG) Pt will be able to perform at least 8/10 STS without compensation or increase in low back pain in order to demonstrate increased BLE strength and symptom management during transfers 05/18/24: 10 STS, no increase in back pain but still present Pallet Repairer Goal (LTG) Pt will be able to perform at least 5x STS at age-related norms (12.6 seconds) if appropriate in order to demonstrate increased BLE strength and symptom management during transfers LTG Duration 10 weeks Two Impairment trunk and BLE strength impaired d/t pain and weakness Shelter Goal (LTG) Pt will increase trunk and BLE strength globally to at least 4/5 MMT without increase in back pain in order to demonstrate improved strength for gait and transfers 05/18/24: 4-/5 for all LTG Duration 10 weeks One Impairment BENJAMIN 58% impairment of ADLs/ IADLs and mobility Short Term Goal (STG) Pt will improve standing and ambulation tolerance to > 10 minutes with back pain <6/10 in order to demonstrate improved symptom management and activity tolerance. 05/18/24: pt reports >6/10 pain with standing, unable to achieve 10 min without support STG Duration 6 weeks Shelter Goal (LTG) Pt will report that she is impaired <25% with ADLs/IADLs due to back pain in order to demonstrate improved symptom management LTG Duration 10 weeks Assessment Summary Assessment Due to increase in pain symptoms, increased time spent on manual treatment and supine isometrics for pain management. Pt reports 5/10 back pain at end of session. Good response to isometrics in hooklying at wall. Needs support from brit[place] virgin islander ball but able to progress from standard glute bridges to elevated on ball, in addition to resisted core strengthening. Trialed standing resisted stepping, which causes slight increase in L sided back pain; cued for form to prevent minimal trunk compensations. Able to perform 10 STS from standard chair with good hip hinge but demos valgus at knee, eccentric control challenging, no increase in pain. Increased resistrictions at QL today, reduced with manual treatment. Pt would benefit from skilled PT for progressive strengthening in order to improve symptom management and functional mobility. Physical Therapy Plan Frequency and Duration Frequency of Treatment 2x/Week Duration of treatment (weeks) 10 Plan of Care Start Date 04/21/24 Plan of Care End Date 07/01/24 Therapeutic Interventions Therapeutic Interventions Balance Training,Gait Training ,Home Exercise Program,Joint Mobilizations,Manual Therapy, Neuromuscular Re-education, Orthotic/Prosthetic Management ,Patient/Caregiver Education, Self-Care/Home Management, Sensory Integration,Soft Tissue Mobilization,Taping, Therapeutic Activities, Therapeutic Exercises Modalities Cold Pack/Ice Massage,Electric Stimulation,Hot Packs, Ultrasound Other Therapeutic Interventions No lumbar spine mobilization d /t instability on past imaging (retrolisthesis) Pelvic realignment and MET as needed Next Visit Focus/Plan Next Note Type Treatment Note Next Visit Plan Lucian review. Trial brit[place] virgin islander ball for core and strength. lateral flex/QL stretch, strengthening Manual: STM to low back, hip mobilizations (future) if tolerated. Flexion biased core bracing in supine and sitting as tolerated with progression to Next session standing trunk strengthening. cont w/ STS and initiate hip and trunk strenght; can trial hip flex/ abd/ext in standing, lat pull down and pallof Initiate HEP: sidelying and seated hip strengthening ( clams, reverse, hip abd). Initiate low back and hip stretching: figure 4, piriformis, standing hip flexor vs oc, calf stretch . can trial counter stretch. Review PRN log roll and body mechanics as needed for bed mobility, (STS review, lifting , hip hinge)
--- NOTE | 2024-05-20 12:26 | PT.OTN ---
Current Diagnoses Stiffness of right hip, not elsewhere classified (05/20/24) Stiffness of left hip, not elsewhere classified (05/20/24) Radiculopathy, site unspecified (05/20/24) Other lack of coordination (05/20/24) Weakness (05/20/24) Physical Therapy Treatment Note PT-OP-A Visit Information Start: 04/21/24 09:19 Freq: Status: Active Protocol: Document 05/20/24 11:10 AB (Rec: 05/20/24 12:26 AB [id number]) Out-Patient Physical Therapy Visit Information Visit Information Visit Type Treatment Note Visit Start Time 11:34 Visit Stop Time 12:18 Visit Number 7 Number of CLOTH PIECER Visits 1 Evaluation Information Evaluation Date 04/21/24 Precautions Precautions Hx retrolisthesis PT-OP-B Current Condition Start: 04/21/24 09:19 Freq: Status: Active Protocol: Document 04/21/24 11:37 NM (Rec: 04/21/24 12:27 NM [id number]) Current Condition History of Current Condition Current Complaints pain, weakness, poor balance History of Current Condition Pt presents with low back pain . Pain is chronic for 7-8 months. She states that after working in the garden, it started to hurt so much across a big swatch. States that she had trouble with bending. Went to [place] for 2 months to help with dying brother; had difficulty with walking, bending, lifting, twisting. Had to use a walker to help with ambulation. She went to a chiro, which helped. Was having difficulty lying flat. No specific LEANNE. However, has had chronic pain. No longer have Sciatic pain. She reports not the leg. Pt reports was going to a chiro 2x a day for 3x/wk. Received manipulations and had pressure points worked on, which helped. She reports that she also gets a midback-L shoulder blade that spreads and goes away. Pt reports bad low back spasms, sleeping was interrupted. Impairments with walking, sleeping better because pills, bending, lifting, twisting, bed mobility, lying flat until in place. Reports that balance is not at good as used to be; reports that she removed grass to help; states not picking up feet. Reports no changes in bowel, bladder. HAs not had an MRI. Has been drinking wine but stopped due to pill intake Prior Treatments and Tests Lumbar spine X-ray 02/2023- Impression: Limited range of motion and multilevel lumbar spine spondylosis, most notably L4-L5 and L5-S1. Current Functional Impairments (Reported) Functional Limitations- ADL's pain with donning/doffing socks, donning/doffing pants pain with all household ADLs does not perform due to pain Functional Limitations- Mobility/Gait sitting- w/ heating pad 20 min standing and ambulating- few minutes STS Transfers- catching with extension PT-OP-C Subjective Start: 04/21/24 09:19 Freq: Status: Active Protocol: Document 05/20/24 11:10 AB (Rec: 05/20/24 12:26 AB [id number]) OP-PT Subjective Patient Comments Patient Comments Patient reports feeling better post prevous session. Patient reports she doesn't feel bad at all. PT-OP-E Functional Tests Start: 04/21/24 09:19 Freq: Status: Active Protocol: Document 04/21/24 11:37 NM (Rec: 04/21/24 12:27 NM [id number]) Functional Tests Five Times Sit to Stand Test Score unable to complete at this time d/t pain PT-OP-F Manual Assessment Start: 04/21/24 09:19 Freq: Status: Active Protocol: Document 04/21/24 11:37 NM (Rec: 04/21/24 12:27 NM [id number]) Manual Assessments Soft Tissue Assessment Soft Tissue Mobility Assessment Increased restrictions of thoracic and lumbar paraspinals, lat, QL, hip flexors Joint Mobility Assessment Joint Mobility Assessment Hypermobility of lumbar spinous processes with PA springing in sitting and prone , hypomobility of hips B R>L PT-OP-G Mobility & Gait Start: 04/21/24 09:19 Freq: Status: Active Protocol: Document 04/21/24 11:37 NM (Rec: 04/21/24 12:27 NM [id number]) OP Mobility Evaluation Transfers Sit to Stand Requires BUE to push up from chair, must pause in coming to stand d/t pain OP Gait Assessment Gait Gait Assistance Required: Standby Assistance Distance (Feet) 150 Gait Deviations General Gait Pattern Antalgic,Flexed Trunk,Narrow Based Gait PT-OP-H Neuro Start: 04/21/24 09:19 Freq: Status: Active Protocol: Document 04/21/24 11:37 NM (Rec: 04/21/24 12:27 NM [id number]) Deep Tendon Reflex & Clonus Assessment Deep Tendon Reflex Bilateral Patellar Deep Tendon Reflex 1+ Diminished PT-OP-J Posture/Palpation/Skin Start: 04/21/24 09:19 Freq: Status: Active Protocol: Document 04/21/24 11:37 NM (Rec: 04/21/24 12:27 NM [id number]) Posture Evaluation Position Standing Head/C-Spine Posture Forward Head L-Spine Posture Decreased Lordosis Shoulder Posture (L) Rounded,(R) Rounded Pelvis Posture Posterior Tilted Hip Posture (L) Externally Rotated,(R) Externally Rotated Knee Posture (L) Genu Valgus,(R) Genu Valgus Comments Posture Comments Demos tendency for flexed trunk position instead of extension, even posturally when sitting Palpation Assessment Location lumbar spine Palpation Findings Soft Tissue Tightness,Spasm, Muscle Guarding Palpation Details Tender along lower lumbar spinous and transverse processes, L PSIS and L SIJ Tightness and tenderness along lumbar paraspinals L>R PT-OP-K Range of Motion Start: 04/21/24 09:19 Freq: Status: Active Protocol: Document 05/18/24 10:44 NM (Rec: 05/18/24 11:30 NM [id number]) Lumbar Spine Range of Motion Lumbar Spine Active Percentage Flexion 75 Extension 50 Rotation Left 75 Rotation Right 25 Lateral Flexion Left 50 Lateral Flexion Right 50 Comments IE: pain with all movements ashli ext; demos hitch with eccentric return following flexion 05/18/24: 80% flex, 50% ext, 75 % B LF, 75% rotation PT-OP-L Special Tests Start: 04/21/24 09:19 Freq: Status: Active Protocol: Document 04/21/24 11:37 NM (Rec: 04/21/24 12:27 NM [id number]) Special Tests Lumbar Spine Special Tests Distraction Test Results + Yo/Quadrant Test Results + Other Special Tests Special Tests Drop test: + (pain with slight heel raise and quick drop onto heels); reproduces familiar pain PT-OP-M Strength Start: 04/21/24 09:19 Freq: Status: Active Protocol: Document 05/18/24 10:44 NM (Rec: 05/18/24 11:30 NM [id number]) Trunk Strength Trunk Manual Muscle Testing Flexion 4- Good- Extension 4- Good- Rotation Left 4- Good- Rotation Right 4- Good- Lateral Flexion Left 4- Good- Lateral Flexion Right 4- Good- Comments IE: pain with resisted ext 05/18/24: 4-/5 Hip Strength Hip Manual Muscle Testing Right Flexion (L2) 3+ Fair+ Extension (S1) 3+ Fair+ Abduction 4- Good- Adduction 4- Good- External Rotation 4- Good- Internal Rotation 3+ Fair+ Comments pain with IR, hip ext, abd d/t core stabilization Left Flexion (L2) 3+ Fair+ Extension (S1) 3+ Fair+ Abduction 3+ Fair+ Adduction 4- Good- External Rotation 4- Good- Internal Rotation 3+ Fair+ Comments pain with IR PT-OP-Q Treatments Start: 04/21/24 09:19 Freq: Status: Active Protocol: Document 05/20/24 11:10 AB (Rec: 05/20/24 12:26 AB [id number]) Therapeutic Exercises Supine Exercises glute isometric Supine Exercise Name @ wall- heels elevated, supported on blue austrian ball Side bilateral Reps/Minutes 2x10 w/ 5 hold submax Comments Verbal and tactile cues for sub max, verbal cues for breathing TrA activation Supine Exercise Name w/ KTC on ball Side bilateral Resistance lvl 1 band at feet Reps/Minutes 2x10 Comments monitored for pain piriformis stretch Supine Exercise Name HEP Side bilateral Reps/Minutes one minute each LE Comments verbal and tactile cues Standing Exercises QL stretch Standing Exercise Name standing at door HEP Side bilateral Reps/Minutes 30 sec each side Comments Verbal and visual cues hip ext Standing Exercise Name resting on 2 pillows on high plinth Side bilateral Reps/Minutes X10 Comments Verbal cues for bracing with abdominals Manual Therapy Treatment Soft Tissue Mobilization lumbar spine Body Location B paraspinals, glutes bilateral Mobilization Type Cross-Friction,Rolling, Sustained Pressure Intensity/Depth Moderate Body Position Sidelying Self-Care/Home Management Treatment Activities Self-Care/Home Management Activities Patient ed 15 minute limit for start of gardening. PT-OP-T Assessment and Plan Start: 04/21/24 09:19 Freq: Status: Active Protocol: Document 05/20/24 11:10 AB (Rec: 05/20/24 12:26 AB [id number]) Physical Therapy Assessment Goals Four Impairment compliance with HEP Alf Goal (LTG) Pt will report compliance with HEP at least 3x/wk in order to maximize progression with PT and transition to maintenance program 05/18/24: performing HEP 3x/wk LTG Duration 10 weeks Three Impairment pain with transfers Short Term Goal (STG) Pt will be able to perform at least 8/10 STS without compensation or increase in low back pain in order to demonstrate increased BLE strength and symptom management during transfers 05/18/24: 10 STS, no increase in back pain but still present Seed Trucker Goal (LTG) Pt will be able to perform at least 5x STS at age-related norms (12.6 seconds) if appropriate in order to demonstrate increased BLE strength and symptom management during transfers LTG Duration 10 weeks Two Impairment trunk and BLE strength impaired d/t pain and weakness Alf Goal (LTG) Pt will increase trunk and BLE strength globally to at least 4/5 MMT without increase in back pain in order to demonstrate improved strength for gait and transfers 05/18/24: 4-/5 for all LTG Duration 10 weeks One Impairment BENJAMIN 58% impairment of ADLs/ IADLs and mobility Short Term Goal (STG) Pt will improve standing and ambulation tolerance to > 10 minutes with back pain <6/10 in order to demonstrate improved symptom management and activity tolerance. 05/18/24: pt reports >6/10 pain with standing, unable to achieve 10 min without support STG Duration 6 weeks Alf Goal (LTG) Pt will report that she is impaired <25% with ADLs/IADLs due to back pain in order to demonstrate improved symptom management LTG Duration 10 weeks Assessment Summary Assessment Patient rates pain 2/10 end of session. Patient into session with reports of feeling much better post previous session. Physical Therapy Plan Frequency and Duration Frequency of Treatment 2x/Week Duration of treatment (weeks) 10 Plan of Care Start Date 04/21/24 Plan of Care End Date 07/01/24 Next Visit Focus/Plan Next Visit Plan Lucian review. Trial austrian ball for core and strength. Assess octavio to lateral flex/QL stretch , strengthening Manual: STM to low back, hip mobilizations (future) if tolerated. Flexion biased core bracing in supine and sitting as tolerated with progression to Next session standing trunk strengthening. cont w/ STS and initiate hip and trunk strenght; can trial hip flex/ abd/ext in standing, lat pull down and pallof Initiate HEP: sidelying and seated hip strengthening ( clams, reverse, hip abd). Initiate low back and hip stretching: figure 4, piriformis, standing hip flexor vs oc, calf stretch . can trial counter stretch. Review PRN log roll and body mechanics as needed for bed mobility, (STS review, lifting , hip hinge)
--- NOTE | 2024-05-24 11:29 | PT.OTN ---
Current Diagnoses Stiffness of right hip, not elsewhere classified (05/24/24) Stiffness of left hip, not elsewhere classified (05/24/24) Radiculopathy, site unspecified (05/24/24) Other lack of coordination (05/24/24) Weakness (05/24/24) Physical Therapy Treatment Note PT-OP-A Visit Information Start: 04/21/24 09:19 Freq: Status: Active Protocol: Document 05/24/24 10:46 NM (Rec: 05/24/24 11:29 NM [id number]) Out-Patient Physical Therapy Visit Information Visit Information Visit Type Treatment Note Visit Start Time 10:47 Visit Stop Time 11:27 Visit Number 8 (07/25 post PN) Evaluation Information Evaluation Date 04/21/24 Precautions Precautions Hx retrolisthesis PT-OP-B Current Condition Start: 04/21/24 09:19 Freq: Status: Active Protocol: Document 04/21/24 11:37 NM (Rec: 04/21/24 12:27 NM [id number]) Current Condition History of Current Condition Current Complaints pain, weakness, poor balance History of Current Condition Pt presents with low back pain . Pain is chronic for 7-8 months. She states that after working in the garden, it started to hurt so much across a big swatch. States that she had trouble with bending. Went to [place] for 2 months to help with dying brother; had difficulty with walking, bending, lifting, twisting. Had to use a walker to help with ambulation. She went to a chiro, which helped. Was having difficulty lying flat. No specific LEANNE. However, has had chronic pain. No longer have Sciatic pain. She reports not the leg. Pt reports was going to a chiro 2x a day for 3x/wk. Received manipulations and had pressure points worked on, which helped. She reports that she also gets a midback-L shoulder blade that spreads and goes away. Pt reports bad low back spasms, sleeping was interrupted. Impairments with walking, sleeping better because pills, bending, lifting, twisting, bed mobility, lying flat until in place. Reports that balance is not at good as used to be; reports that she removed grass to help; states not picking up feet. Reports no changes in bowel, bladder. HAs not had an MRI. Has been drinking wine but stopped due to pill intake Prior Treatments and Tests Lumbar spine X-ray 02/2023- Impression: Limited range of motion and multilevel lumbar spine spondylosis, most notably L4-L5 and L5-S1. Current Functional Impairments (Reported) Functional Limitations- ADL's pain with donning/doffing socks, donning/doffing pants pain with all household ADLs does not perform due to pain Functional Limitations- Mobility/Gait sitting- w/ heating pad 20 min standing and ambulating- few minutes STS Transfers- catching with extension PT-OP-C Subjective Start: 04/21/24 09:19 Freq: Status: Active Protocol: Document 05/24/24 10:46 NM (Rec: 05/24/24 11:29 NM [id number]) OP-PT Subjective Patient Comments Patient Comments Pt reports that manual tx helping. She thinks she overstretched laterally to side at last session. 08/22 pain in midline PT-OP-E Functional Tests Start: 04/21/24 09:19 Freq: Status: Active Protocol: Document 04/21/24 11:37 NM (Rec: 04/21/24 12:27 NM [id number]) Functional Tests Five Times Sit to Stand Test Score unable to complete at this time d/t pain PT-OP-F Manual Assessment Start: 04/21/24 09:19 Freq: Status: Active Protocol: Document 04/21/24 11:37 NM (Rec: 04/21/24 12:27 NM [id number]) Manual Assessments Soft Tissue Assessment Soft Tissue Mobility Assessment Increased restrictions of thoracic and lumbar paraspinals, lat, QL, hip flexors Joint Mobility Assessment Joint Mobility Assessment Hypermobility of lumbar spinous processes with PA springing in sitting and prone , hypomobility of hips B R>L PT-OP-G Mobility & Gait Start: 04/21/24 09:19 Freq: Status: Active Protocol: Document 04/21/24 11:37 NM (Rec: 04/21/24 12:27 NM [id number]) OP Mobility Evaluation Transfers Sit to Stand Requires BUE to push up from chair, must pause in coming to stand d/t pain OP Gait Assessment Gait Gait Assistance Required: Standby Assistance Distance (Feet) 150 Gait Deviations General Gait Pattern Antalgic,Flexed Trunk,Narrow Based Gait PT-OP-H Neuro Start: 04/21/24 09:19 Freq: Status: Active Protocol: Document 04/21/24 11:37 NM (Rec: 04/21/24 12:27 NM [id number]) Deep Tendon Reflex & Clonus Assessment Deep Tendon Reflex Bilateral Patellar Deep Tendon Reflex 1+ Diminished PT-OP-J Posture/Palpation/Skin Start: 04/21/24 09:19 Freq: Status: Active Protocol: Document 04/21/24 11:37 NM (Rec: 04/21/24 12:27 NM [id number]) Posture Evaluation Position Standing Head/C-Spine Posture Forward Head L-Spine Posture Decreased Lordosis Shoulder Posture (L) Rounded,(R) Rounded Pelvis Posture Posterior Tilted Hip Posture (L) Externally Rotated,(R) Externally Rotated Knee Posture (L) Genu Valgus,(R) Genu Valgus Comments Posture Comments Demos tendency for flexed trunk position instead of extension, even posturally when sitting Palpation Assessment Location lumbar spine Palpation Findings Soft Tissue Tightness,Spasm, Muscle Guarding Palpation Details Tender along lower lumbar spinous and transverse processes, L PSIS and L SIJ Tightness and tenderness along lumbar paraspinals L>R PT-OP-K Range of Motion Start: 04/21/24 09:19 Freq: Status: Active Protocol: Document 05/18/24 10:44 NM (Rec: 05/18/24 11:30 NM [id number]) Lumbar Spine Range of Motion Lumbar Spine Active Percentage Flexion 75 Extension 50 Rotation Left 75 Rotation Right 25 Lateral Flexion Left 50 Lateral Flexion Right 50 Comments IE: pain with all movements ashli ext; demos hitch with eccentric return following flexion 05/18/24: 80% flex, 50% ext, 75 % B LF, 75% rotation PT-OP-L Special Tests Start: 04/21/24 09:19 Freq: Status: Active Protocol: Document 04/21/24 11:37 NM (Rec: 04/21/24 12:27 NM [id number]) Special Tests Lumbar Spine Special Tests Distraction Test Results + Yo/Quadrant Test Results + Other Special Tests Special Tests Drop test: + (pain with slight heel raise and quick drop onto heels); reproduces familiar pain PT-OP-M Strength Start: 04/21/24 09:19 Freq: Status: Active Protocol: Document 05/18/24 10:44 NM (Rec: 05/18/24 11:30 NM [id number]) Trunk Strength Trunk Manual Muscle Testing Flexion 4- Good- Extension 4- Good- Rotation Left 4- Good- Rotation Right 4- Good- Lateral Flexion Left 4- Good- Lateral Flexion Right 4- Good- Comments IE: pain with resisted ext 05/18/24: 4-/5 Hip Strength Hip Manual Muscle Testing Right Flexion (L2) 3+ Fair+ Extension (S1) 3+ Fair+ Abduction 4- Good- Adduction 4- Good- External Rotation 4- Good- Internal Rotation 3+ Fair+ Comments pain with IR, hip ext, abd d/t core stabilization Left Flexion (L2) 3+ Fair+ Extension (S1) 3+ Fair+ Abduction 3+ Fair+ Adduction 4- Good- External Rotation 4- Good- Internal Rotation 3+ Fair+ Comments pain with IR PT-OP-Q Treatments Start: 04/21/24 09:19 Freq: Status: Active Protocol: Document 05/24/24 10:46 NM (Rec: 05/24/24 11:29 NM [id number]) Therapeutic Exercises Supine Exercises oc stretch Supine Exercise Name w/ knee to chest (HEP) Side bilateral Reps/Minutes 60 ea Comments cued form Standing Exercises calf stretch Standing Exercise Name 1. gastrocnemius, 2. soleus Side bilateral Equipment Used foot supported on wall, arms supported on wall Reps/Minutes 10 breaths ea position hip abduction Side bilateral Resistance AROM > level 1 band at thighs Equipment Used B hand support on bar Reps/Minutes 10 ea, 2x10 w/ band Comments cues abd bracing, smaller ROM to maintain core, improve comfort lat pull down Standing Exercise Name 1. wide arm, 2. straight arm ( HEP) Side bilateral Resistance level 1 band Reps/Minutes 2x10 ea (wide arm challenging- needs max cues) Comments cued no pain; abd bracing, limit trunk hyperext hip ext Side bilateral Resistance AROM > level 1 band Reps/Minutes 10 ea, 2x10 w/ band Comments cues abd bracing, smaller ROM to maintain core, improve comfort Other Exercises self soft tissue mobilization Other Exercise Name paraspinals, QL Side bilateral Equipment Used racquetball in pillow case Reps/Minutes 2 min total Comments edu on execution, avoid staying on tender spots, spine PT-OP-T Assessment and Plan Start: 04/21/24 09:19 Freq: Status: Active Protocol: Document 05/24/24 10:46 NM (Rec: 05/24/24 11:29 NM [id number]) Physical Therapy Assessment Goals Four Impairment compliance with HEP Residential Goal (LTG) Pt will report compliance with HEP at least 3x/wk in order to maximize progression with PT and transition to maintenance program 05/18/24: performing HEP 3x/wk LTG Duration 10 weeks Three Impairment pain with transfers Short Term Goal (STG) Pt will be able to perform at least 8/10 STS without compensation or increase in low back pain in order to demonstrate increased BLE strength and symptom management during transfers 05/18/24: 10 STS, no increase in back pain but still present Kosher Butcher Goal (LTG) Pt will be able to perform at least 5x STS at age-related norms (12.6 seconds) if appropriate in order to demonstrate increased BLE strength and symptom management during transfers LTG Duration 10 weeks Two Impairment trunk and BLE strength impaired d/t pain and weakness Kosher Butcher Goal (LTG) Pt will increase trunk and BLE strength globally to at least 4/5 MMT without increase in back pain in order to demonstrate improved strength for gait and transfers 05/18/24: 4-/5 for all LTG Duration 10 weeks One Impairment BENJAMIN 58% impairment of ADLs/ IADLs and mobility Short Term Goal (STG) Pt will improve standing and ambulation tolerance to > 10 minutes with back pain <6/10 in order to demonstrate improved symptom management and activity tolerance. 05/18/24: pt reports >6/10 pain with standing, unable to achieve 10 min without support STG Duration 6 weeks Residential Goal (LTG) Pt will report that she is impaired <25% with ADLs/IADLs due to back pain in order to demonstrate improved symptom management LTG Duration 10 weeks Assessment Summary Assessment Trialed self soft tissue mobilization at wall with ball and pillow case, responds well. Educated on use for HEP. Initiated hip strengthening with band and lat strengthening with band. Cueing needed for correct execution, especially for abominal bracing and to limit trunk hyperextension. Hip strengthening non-provocative for back as long as limits ROM , which also limits compensations at trunk. Good feedback for oc holliday. Reports 2/10 pain at end of session, no change from start of session. Pt would continue to benefit from skilled PT for progressive strengthening and body mechanics training in order to improve symptom management during ADLs. Physical Therapy Plan Frequency and Duration Frequency of Treatment 2x/Week Duration of treatment (weeks) 10 Plan of Care Start Date 04/21/24 Plan of Care End Date 07/01/24 Therapeutic Interventions Therapeutic Interventions Balance Training,Gait Training ,Home Exercise Program,Joint Mobilizations,Manual Therapy, Neuromuscular Re-education, Orthotic/Prosthetic Management ,Patient/Caregiver Education, Self-Care/Home Management, Sensory Integration,Soft Tissue Mobilization,Taping, Therapeutic Activities, Therapeutic Exercises Modalities Cold Pack/Ice Massage,Electric Stimulation,Hot Packs, Ultrasound Other Therapeutic Interventions No lumbar spine mobilization d /t instability on past imaging (retrolisthesis) Pelvic realignment and MET as needed Next Visit Focus/Plan Next Note Type Treatment Note Next Visit Plan body mechanics for plants and gardening. Trial [place] ball for core and strength. Assess octavio to lateral flex/QL stretch , strengthening Manual: STM to low back, hip mobilizations (future) if tolerated. Flexion biased core bracing in supine and sitting as tolerated with progression to Next session standing trunk strengthening. cont w/ STS and initiate hip and trunk strenght; can trial hip flex/ abd/ext in standing, lat pull down and pallof Initiate HEP: sidelying and seated hip strengthening ( clams, reverse, hip abd). Initiate low back and hip stretching: figure 4, piriformis, standing hip flexor vs oc, calf stretch . can trial counter stretch. Review PRN log roll and body mechanics as needed for bed mobility, (STS review, lifting , hip hinge)
--- NOTE | 2024-05-26 12:15 | PT.OTN ---
Current Diagnoses Stiffness of right hip, not elsewhere classified (05/26/24) Stiffness of left hip, not elsewhere classified (05/26/24) Radiculopathy, site unspecified (05/26/24) Other lack of coordination (05/26/24) Weakness (05/26/24) Physical Therapy Treatment Note PT-OP-A Visit Information Start: 04/21/24 09:19 Freq: Status: Active Protocol: Document 05/26/24 11:27 NM (Rec: 05/26/24 12:14 NM [id number]) Out-Patient Physical Therapy Visit Information Visit Information Visit Type Treatment Note Visit Start Time 11:30 Visit Stop Time 12:08 Visit Number 9 (08/22 post PN) Evaluation Information Evaluation Date 04/21/24 Precautions Precautions Hx retrolisthesis PT-OP-B Current Condition Start: 04/21/24 09:19 Freq: Status: Active Protocol: Document 04/21/24 11:37 NM (Rec: 04/21/24 12:27 NM [id number]) Current Condition History of Current Condition Current Complaints pain, weakness, poor balance History of Current Condition Pt presents with low back pain . Pain is chronic for 7-8 months. She states that after working in the garden, it started to hurt so much across a big swatch. States that she had trouble with bending. Went to [place] for 2 months to help with dying brother; had difficulty with walking, bending, lifting, twisting. Had to use a walker to help with ambulation. She went to a chiro, which helped. Was having difficulty lying flat. No specific LEANNE. However, has had chronic pain. No longer have Sciatic pain. She reports not the leg. Pt reports was going to a chiro 2x a day for 3x/wk. Received manipulations and had pressure points worked on, which helped. She reports that she also gets a midback-L shoulder blade that spreads and goes away. Pt reports bad low back spasms, sleeping was interrupted. Impairments with walking, sleeping better because pills, bending, lifting, twisting, bed mobility, lying flat until in place. Reports that balance is not at good as used to be; reports that she removed grass to help; states not picking up feet. Reports no changes in bowel, bladder. HAs not had an MRI. Has been drinking wine but stopped due to pill intake Prior Treatments and Tests Lumbar spine X-ray 02/2023- Impression: Limited range of motion and multilevel lumbar spine spondylosis, most notably L4-L5 and L5-S1. Current Functional Impairments (Reported) Functional Limitations- ADL's pain with donning/doffing socks, donning/doffing pants pain with all household ADLs does not perform due to pain Functional Limitations- Mobility/Gait sitting- w/ heating pad 20 min standing and ambulating- few minutes STS Transfers- catching with extension PT-OP-C Subjective Start: 04/21/24 09:19 Freq: Status: Active Protocol: Document 05/26/24 11:27 NM (Rec: 05/26/24 12:14 NM [id number]) OP-PT Subjective Patient Comments Patient Comments Pt presents with less antalgic today. She states walking gets worse as day goes on. Reports 1-1.5/10. PT-OP-E Functional Tests Start: 04/21/24 09:19 Freq: Status: Active Protocol: Document 04/21/24 11:37 NM (Rec: 04/21/24 12:27 NM [id number]) Functional Tests Five Times Sit to Stand Test Score unable to complete at this time d/t pain PT-OP-F Manual Assessment Start: 04/21/24 09:19 Freq: Status: Active Protocol: Document 04/21/24 11:37 NM (Rec: 04/21/24 12:27 NM [id number]) Manual Assessments Soft Tissue Assessment Soft Tissue Mobility Assessment Increased restrictions of thoracic and lumbar paraspinals, lat, QL, hip flexors Joint Mobility Assessment Joint Mobility Assessment Hypermobility of lumbar spinous processes with PA springing in sitting and prone , hypomobility of hips B R>L PT-OP-G Mobility & Gait Start: 04/21/24 09:19 Freq: Status: Active Protocol: Document 04/21/24 11:37 NM (Rec: 04/21/24 12:27 NM [id number]) OP Mobility Evaluation Transfers Sit to Stand Requires BUE to push up from chair, must pause in coming to stand d/t pain OP Gait Assessment Gait Gait Assistance Required: Standby Assistance Distance (Feet) 150 Gait Deviations General Gait Pattern Antalgic,Flexed Trunk,Narrow Based Gait PT-OP-H Neuro Start: 04/21/24 09:19 Freq: Status: Active Protocol: Document 04/21/24 11:37 NM (Rec: 04/21/24 12:27 NM [id number]) Deep Tendon Reflex & Clonus Assessment Deep Tendon Reflex Bilateral Patellar Deep Tendon Reflex 1+ Diminished PT-OP-J Posture/Palpation/Skin Start: 04/21/24 09:19 Freq: Status: Active Protocol: Document 04/21/24 11:37 NM (Rec: 04/21/24 12:27 NM [id number]) Posture Evaluation Position Standing Head/C-Spine Posture Forward Head L-Spine Posture Decreased Lordosis Shoulder Posture (L) Rounded,(R) Rounded Pelvis Posture Posterior Tilted Hip Posture (L) Externally Rotated,(R) Externally Rotated Knee Posture (L) Genu Valgus,(R) Genu Valgus Comments Posture Comments Demos tendency for flexed trunk position instead of extension, even posturally when sitting Palpation Assessment Location lumbar spine Palpation Findings Soft Tissue Tightness,Spasm, Muscle Guarding Palpation Details Tender along lower lumbar spinous and transverse processes, L PSIS and L SIJ Tightness and tenderness along lumbar paraspinals L>R PT-OP-K Range of Motion Start: 04/21/24 09:19 Freq: Status: Active Protocol: Document 05/18/24 10:44 NM (Rec: 05/18/24 11:30 NM [id number]) Lumbar Spine Range of Motion Lumbar Spine Active Percentage Flexion 75 Extension 50 Rotation Left 75 Rotation Right 25 Lateral Flexion Left 50 Lateral Flexion Right 50 Comments IE: pain with all movements ashli ext; demos hitch with eccentric return following flexion 05/18/24: 80% flex, 50% ext, 75 % B LF, 75% rotation PT-OP-L Special Tests Start: 04/21/24 09:19 Freq: Status: Active Protocol: Document 04/21/24 11:37 NM (Rec: 04/21/24 12:27 NM [id number]) Special Tests Lumbar Spine Special Tests Distraction Test Results + Yo/Quadrant Test Results + Other Special Tests Special Tests Drop test: + (pain with slight heel raise and quick drop onto heels); reproduces familiar pain PT-OP-M Strength Start: 04/21/24 09:19 Freq: Status: Active Protocol: Document 05/18/24 10:44 NM (Rec: 05/18/24 11:30 NM [id number]) Trunk Strength Trunk Manual Muscle Testing Flexion 4- Good- Extension 4- Good- Rotation Left 4- Good- Rotation Right 4- Good- Lateral Flexion Left 4- Good- Lateral Flexion Right 4- Good- Comments IE: pain with resisted ext 05/18/24: 4-/5 Hip Strength Hip Manual Muscle Testing Right Flexion (L2) 3+ Fair+ Extension (S1) 3+ Fair+ Abduction 4- Good- Adduction 4- Good- External Rotation 4- Good- Internal Rotation 3+ Fair+ Comments pain with IR, hip ext, abd d/t core stabilization Left Flexion (L2) 3+ Fair+ Extension (S1) 3+ Fair+ Abduction 3+ Fair+ Adduction 4- Good- External Rotation 4- Good- Internal Rotation 3+ Fair+ Comments pain with IR PT-OP-Q Treatments Start: 04/21/24 09:19 Freq: Status: Active Protocol: Document 05/26/24 11:27 NM (Rec: 05/26/24 12:14 NM [id number]) Gym Equipment Shuttle Recovery B squat Details level 2 band for alignment; cued TKE w/o lock, alignment Resistance 62# (2 navy) > 75# Reps/Time 10 @ 62#, 2x10 @ 75# - pain free in back Therapeutic Exercises Sitting Exercises HS stretch Side bilateral Equipment Used with slight trunk flexion Reps/Minutes 60 ea Comments feels good; post squat trinidadian ball Sitting Exercise Name 1. TrA, 2. w/ august, 3. w/ hip abd, 4. lat pull down Side bilateral Equipment Used 65 cm trinidadian ball, gait belt; CGA from PT, assist at ball Reps/Minutes 1. 10, 2. 10 ea, 3. 10 ea, 4. 10 ea Comments cued form, core bracing; LLE more challenging Other Exercises counter top stretch Other Exercise Name on TM rail: 1. fwd, 2. lateral Side bilateral Reps/Minutes 1. 2x30, 2. 10 breaths ea Comments pain free Therapeutic Activity Therapeutic Activity body mechanics Reps/Minutes 13 minutes Comments 1. watering her plants w/ bucket full of lee bags W/ staggered stance on same side for added range, core bracing and hip hinge 2. sweeping w/ dowel Side stepping w/ hip hinge. Cueing to limit twisting, for control 3. using dustpan Sitting in chair with hip hinge and forward trunk flexion, sweeping into fisher squat Name mechanics Reps/Minutes 2 min Comments Chair behind pt for target, self tactile cues on hips for hinge. Cueing needed for hip hinge, dropping bottom for depth, coordination with knee flexion PT-OP-T Assessment and Plan Start: 04/21/24 09:19 Freq: Status: Active Protocol: Document 05/26/24 11:27 NM (Rec: 05/26/24 12:14 NM [id number]) Physical Therapy Assessment Goals Four Impairment compliance with HEP Snf Goal (LTG) Pt will report compliance with HEP at least 3x/wk in order to maximize progression with PT and transition to maintenance program 05/18/24: performing HEP 3x/wk LTG Duration 10 weeks Three Impairment pain with transfers Short Term Goal (STG) Pt will be able to perform at least 8/10 STS without compensation or increase in low back pain in order to demonstrate increased BLE strength and symptom management during transfers 05/18/24: 10 STS, no increase in back pain but still present [employer] Goal (LTG) Pt will be able to perform at least 5x STS at age-related norms (12.6 seconds) if appropriate in order to demonstrate increased BLE strength and symptom management during transfers LTG Duration 10 weeks Two Impairment trunk and BLE strength impaired d/t pain and weakness Snf Goal (LTG) Pt will increase trunk and BLE strength globally to at least 4/5 MMT without increase in back pain in order to demonstrate improved strength for gait and transfers 05/18/24: 4-/5 for all LTG Duration 10 weeks One Impairment BENJAMIN 58% impairment of ADLs/ IADLs and mobility Short Term Goal (STG) Pt will improve standing and ambulation tolerance to > 10 minutes with back pain <6/10 in order to demonstrate improved symptom management and activity tolerance. 05/18/24: pt reports >6/10 pain with standing, unable to achieve 10 min without support STG Duration 6 weeks Snf Goal (LTG) Pt will report that she is impaired <25% with ADLs/IADLs due to back pain in order to demonstrate improved symptom management LTG Duration 10 weeks Assessment Summary Assessment Pt tolerates B squat on leg press well, able to progress resistance without back pain; cueing needed for correct execution, band added to prevent knee valgus. Trialed trinidadian ball for trunk strengthening; LLE more challenging to move while maintaining stability. Initiated body mechanics training with pt ADLs that are most aggravating. Cueing to decrease strain on low back, limit twisting, and to promote steadiness. Pt most challenged with maintaining body mechanics while performing external motions involving lifting. Mild increase in back pain from 1 to 3/10 at end of session. Physical Therapy Plan Frequency and Duration Frequency of Treatment 2x/Week Duration of treatment (weeks) 10 Plan of Care Start Date 04/21/24 Plan of Care End Date 07/01/24 Therapeutic Interventions Therapeutic Interventions Balance Training,Gait Training ,Home Exercise Program,Joint Mobilizations,Manual Therapy, Neuromuscular Re-education, Orthotic/Prosthetic Management ,Patient/Caregiver Education, Self-Care/Home Management, Sensory Integration,Soft Tissue Mobilization,Taping, Therapeutic Activities, Therapeutic Exercises Modalities Cold Pack/Ice Massage,Electric Stimulation,Hot Packs, Ultrasound Other Therapeutic Interventions No lumbar spine mobilization d /t instability on past imaging (retrolisthesis) Pelvic realignment and MET as needed Next Visit Focus/Plan Next Note Type Treatment Note Next Visit Plan Cont with glute/hip strength in standing and leg press if octavio well at 12 session. back strengthening: carries, lifting mechanics Manual: STM to low back, hip mobilizations (future) if tolerated. Flexion biased core bracing in supine and sitting as tolerated with progression to Next session standing trunk strengthening. cont w/ STS and initiate hip and trunk strenght; can trial hip flex/ abd/ext in standing, lat pull down and pallof Initiate HEP: sidelying and seated hip strengthening ( clams, reverse, hip abd). Initiate low back and hip stretching: figure 4, piriformis, standing hip flexor vs oc, calf stretch . can trial counter stretch. Review PRN log roll and body mechanics as needed for bed mobility, (STS review, lifting , hip hinge)
--- NOTE | 2024-06-02 12:17 | PT.OTN ---
Current Diagnoses Stiffness of right hip, not elsewhere classified (06/02/24) Stiffness of left hip, not elsewhere classified (06/02/24) Radiculopathy, site unspecified (06/02/24) Other lack of coordination (06/02/24) Weakness (06/02/24) Physical Therapy Treatment Note PT-OP-A Visit Information Start: 04/21/24 09:19 Freq: Status: Active Protocol: Document 06/02/24 11:32 NM (Rec: 06/02/24 12:16 NM [id number]) Out-Patient Physical Therapy Visit Information Visit Information Visit Type Treatment Note Visit Start Time 11:33 Visit Stop Time 12:15 Visit Number 10 (09/22 post PN) Evaluation Information Evaluation Date 04/21/24 Precautions Precautions Hx retrolisthesis PT-OP-B Current Condition Start: 04/21/24 09:19 Freq: Status: Active Protocol: Document 04/21/24 11:37 NM (Rec: 04/21/24 12:27 NM [id number]) Current Condition History of Current Condition Current Complaints pain, weakness, poor balance History of Current Condition Pt presents with low back pain . Pain is chronic for 7-8 months. She states that after working in the garden, it started to hurt so much across a big swatch. States that she had trouble with bending. Went to [place] for 2 months to help with dying brother; had difficulty with walking, bending, lifting, twisting. Had to use a walker to help with ambulation. She went to a chiro, which helped. Was having difficulty lying flat. No specific LEANNE. However, has had chronic pain. No longer have Sciatic pain. She reports not the leg. Pt reports was going to a chiro 2x a day for 3x/wk. Received manipulations and had pressure points worked on, which helped. She reports that she also gets a midback-L shoulder blade that spreads and goes away. Pt reports bad low back spasms, sleeping was interrupted. Impairments with walking, sleeping better because pills, bending, lifting, twisting, bed mobility, lying flat until in place. Reports that balance is not at good as used to be; reports that she removed grass to help; states not picking up feet. Reports no changes in bowel, bladder. HAs not had an MRI. Has been drinking wine but stopped due to pill intake Prior Treatments and Tests Lumbar spine X-ray 02/2023- Impression: Limited range of motion and multilevel lumbar spine spondylosis, most notably L4-L5 and L5-S1. Current Functional Impairments (Reported) Functional Limitations- ADL's pain with donning/doffing socks, donning/doffing pants pain with all household ADLs does not perform due to pain Functional Limitations- Mobility/Gait sitting- w/ heating pad 20 min standing and ambulating- few minutes STS Transfers- catching with extension PT-OP-C Subjective Start: 04/21/24 09:19 Freq: Status: Active Protocol: Document 06/02/24 11:32 NM (Rec: 06/02/24 12:16 NM [id number]) OP-PT Subjective Patient Comments Patient Comments Pt reports that her back is having a good day. Reports it bothers her off/on. [place] sore after last session. Still looking to find a ball for her soft tissue mobilization. Pt reports improvements in pain management with watering her plants following last appt . PT-OP-E Functional Tests Start: 04/21/24 09:19 Freq: Status: Active Protocol: Document 04/21/24 11:37 NM (Rec: 04/21/24 12:27 NM [id number]) Functional Tests Five Times Sit to Stand Test Score unable to complete at this time d/t pain PT-OP-F Manual Assessment Start: 04/21/24 09:19 Freq: Status: Active Protocol: Document 04/21/24 11:37 NM (Rec: 04/21/24 12:27 NM [id number]) Manual Assessments Soft Tissue Assessment Soft Tissue Mobility Assessment Increased restrictions of thoracic and lumbar paraspinals, lat, QL, hip flexors Joint Mobility Assessment Joint Mobility Assessment Hypermobility of lumbar spinous processes with PA springing in sitting and prone , hypomobility of hips B R>L PT-OP-G Mobility & Gait Start: 04/21/24 09:19 Freq: Status: Active Protocol: Document 04/21/24 11:37 NM (Rec: 04/21/24 12:27 NM [id number]) OP Mobility Evaluation Transfers Sit to Stand Requires BUE to push up from chair, must pause in coming to stand d/t pain OP Gait Assessment Gait Gait Assistance Required: Standby Assistance Distance (Feet) 150 Gait Deviations General Gait Pattern Antalgic,Flexed Trunk,Narrow Based Gait PT-OP-H Neuro Start: 04/21/24 09:19 Freq: Status: Active Protocol: Document 04/21/24 11:37 NM (Rec: 04/21/24 12:27 NM [id number]) Deep Tendon Reflex & Clonus Assessment Deep Tendon Reflex Bilateral Patellar Deep Tendon Reflex 1+ Diminished PT-OP-J Posture/Palpation/Skin Start: 04/21/24 09:19 Freq: Status: Active Protocol: Document 04/21/24 11:37 NM (Rec: 04/21/24 12:27 NM [id number]) Posture Evaluation Position Standing Head/C-Spine Posture Forward Head L-Spine Posture Decreased Lordosis Shoulder Posture (L) Rounded,(R) Rounded Pelvis Posture Posterior Tilted Hip Posture (L) Externally Rotated,(R) Externally Rotated Knee Posture (L) Genu Valgus,(R) Genu Valgus Comments Posture Comments Demos tendency for flexed trunk position instead of extension, even posturally when sitting Palpation Assessment Location lumbar spine Palpation Findings Soft Tissue Tightness,Spasm, Muscle Guarding Palpation Details Tender along lower lumbar spinous and transverse processes, L PSIS and L SIJ Tightness and tenderness along lumbar paraspinals L>R PT-OP-K Range of Motion Start: 04/21/24 09:19 Freq: Status: Active Protocol: Document 05/18/24 10:44 NM (Rec: 05/18/24 11:30 NM [id number]) Lumbar Spine Range of Motion Lumbar Spine Active Percentage Flexion 75 Extension 50 Rotation Left 75 Rotation Right 25 Lateral Flexion Left 50 Lateral Flexion Right 50 Comments IE: pain with all movements ashli ext; demos hitch with eccentric return following flexion 05/18/24: 80% flex, 50% ext, 75 % B LF, 75% rotation PT-OP-L Special Tests Start: 04/21/24 09:19 Freq: Status: Active Protocol: Document 04/21/24 11:37 NM (Rec: 04/21/24 12:27 NM [id number]) Special Tests Lumbar Spine Special Tests Distraction Test Results + Yo/Quadrant Test Results + Other Special Tests Special Tests Drop test: + (pain with slight heel raise and quick drop onto heels); reproduces familiar pain PT-OP-M Strength Start: 04/21/24 09:19 Freq: Status: Active Protocol: Document 05/18/24 10:44 NM (Rec: 05/18/24 11:30 NM [id number]) Trunk Strength Trunk Manual Muscle Testing Flexion 4- Good- Extension 4- Good- Rotation Left 4- Good- Rotation Right 4- Good- Lateral Flexion Left 4- Good- Lateral Flexion Right 4- Good- Comments IE: pain with resisted ext 05/18/24: 4-/5 Hip Strength Hip Manual Muscle Testing Right Flexion (L2) 3+ Fair+ Extension (S1) 3+ Fair+ Abduction 4- Good- Adduction 4- Good- External Rotation 4- Good- Internal Rotation 3+ Fair+ Comments pain with IR, hip ext, abd d/t core stabilization Left Flexion (L2) 3+ Fair+ Extension (S1) 3+ Fair+ Abduction 3+ Fair+ Adduction 4- Good- External Rotation 4- Good- Internal Rotation 3+ Fair+ Comments pain with IR PT-OP-Q Treatments Start: 04/21/24 09:19 Freq: Status: Active Protocol: Document 06/02/24 11:32 NM (Rec: 06/02/24 12:16 NM [id number]) Gym Equipment Shuttle Recovery B squat Details level 2 band for alignment; cued TKE w/o lock, alignment Resistance 62# (2 navy) Reps/Time 4x10 Therapeutic Exercises Standing Exercises heel raises Side bilateral Equipment Used B hand support for balance Reps/Minutes 20 stretching Standing Exercise Name 1. HS stretch, 2. hip flexors Side bilateral Equipment Used @ 4 stairs Reps/Minutes 10 breaths ea leg, ea position calf stretch Standing Exercise Name 1. gastrocnemius, 2. soleus Side bilateral Equipment Used JORDAN Reps/Minutes 10 breaths ea position sit to stand with band Side bilateral Resistance level 2 band at thighs Reps/Minutes 10 (trialed 2 w/ 8# but unable to coordinate) >3# > d/c wt Comments coord to challenge w/ STS Other Exercises carries Other Exercise Name 1. unilateral, 2. bilateral, 3 . over head -unilateral Side bilateral Resistance 8# db Equipment Used mirror for visual cues Reps/Minutes 1. 2x25 ft ea, 2. 4x25 ft ea direction, 3. 2x25 ft ea Comments prn cues for abdominal bracing quadruped Other Exercise Name trialed in PT: bird dog Side bilateral Equipment Used on plinth, dowel for tactile cue Reps/Minutes 10 ea Comments non-alternating; pain free but challenging to maintain neutral spine counter top stretch Other Exercise Name using plinth: 1. fwd, 2. lateral Side bilateral Reps/Minutes 1. 10x5, 2. 2 sets x 10 breaths ea Comments pain free PT-OP-T Assessment and Plan Start: 04/21/24 09:19 Freq: Status: Active Protocol: Document 06/02/24 11:32 NM (Rec: 06/02/24 12:16 NM [id number]) Physical Therapy Assessment Goals Four Impairment compliance with HEP Sailboat Captain Goal (LTG) Pt will report compliance with HEP at least 3x/wk in order to maximize progression with PT and transition to maintenance program 05/18/24: performing HEP 3x/wk LTG Duration 10 weeks Three Impairment pain with transfers Short Term Goal (STG) Pt will be able to perform at least 8/10 STS without compensation or increase in low back pain in order to demonstrate increased BLE strength and symptom management during transfers 05/18/24: 10 STS, no increase in back pain but still present Sailboat Captain Goal (LTG) Pt will be able to perform at least 5x STS at age-related norms (12.6 seconds) if appropriate in order to demonstrate increased BLE strength and symptom management during transfers LTG Duration 10 weeks Two Impairment trunk and BLE strength impaired d/t pain and weakness Fpc Goal (LTG) Pt will increase trunk and BLE strength globally to at least 4/5 MMT without increase in back pain in order to demonstrate improved strength for gait and transfers 05/18/24: 4-/5 for all LTG Duration 10 weeks One Impairment BENJAMIN 58% impairment of ADLs/ IADLs and mobility Short Term Goal (STG) Pt will improve standing and ambulation tolerance to > 10 minutes with back pain <6/10 in order to demonstrate improved symptom management and activity tolerance. 05/18/24: pt reports >6/10 pain with standing, unable to achieve 10 min without support STG Duration 6 weeks Fpc Goal (LTG) Pt will report that she is impaired <25% with ADLs/IADLs due to back pain in order to demonstrate improved symptom management LTG Duration 10 weeks Assessment Summary Assessment Initiated bird dog for spinal extensor and glute training, in addition to core bracing. Cueing needed form, core stabilization, and to maintain neutral spine; pain free for all. Regressed resistance on leg press this session as pt had increased pain in low back following last session; verbal and tactile cues needed to limit knee valgus and for set up to promote more optimal alignment. Initiated carries today for further lumbar strengthening and stabilization during lifting and carrying ADLs. Able to maintain tall posture; pain free during session. Good feedback for global LE stretching. Demos strong tendency to overuse low back during STS; trialed progression with weights but unable to coordinate. Physical Therapy Plan Frequency and Duration Frequency of Treatment 2x/Week Duration of treatment (weeks) 10 Plan of Care Start Date 04/21/24 Plan of Care End Date 07/01/24 Therapeutic Interventions Therapeutic Interventions Balance Training,Gait Training ,Home Exercise Program,Joint Mobilizations,Manual Therapy, Neuromuscular Re-education, Orthotic/Prosthetic Management ,Patient/Caregiver Education, Self-Care/Home Management, Sensory Integration,Soft Tissue Mobilization,Taping, Therapeutic Activities, Therapeutic Exercises Modalities Cold Pack/Ice Massage,Electric Stimulation,Hot Packs, Ultrasound Other Therapeutic Interventions No lumbar spine mobilization d /t instability on past imaging (retrolisthesis) Pelvic realignment and MET as needed Next Visit Focus/Plan Next Note Type Treatment Note Next Visit Plan Cont leg press vs STS w/o weight and w/ weight, continue with hip strengthening especially in standing. Initiate deadlift mechanics and add weight if tolerated. back strengthening: carries, lifting mechanics. Pallof, standing core. Manual: STM to low back as needed only
--- NOTE | 2024-06-14 12:27 | PT.OTN ---
Current Diagnoses Stiffness of right hip, not elsewhere classified (06/14/24) Stiffness of left hip, not elsewhere classified (06/14/24) Radiculopathy, site unspecified (06/14/24) Other lack of coordination (06/14/24) Weakness (06/14/24) Physical Therapy Treatment Note PT-OP-A Visit Information Start: 04/21/24 09:19 Freq: Status: Active Protocol: Document 06/14/24 10:17 AB (Rec: 06/14/24 12:27 AB [id number]) Out-Patient Physical Therapy Visit Information Visit Information Visit Type Treatment Note Visit Start Time 11:32 Visit Stop Time 12:17 Visit Number 11 (10/22 post PN) Number of WRITING MANAGER Visits 1 Evaluation Information Evaluation Date 04/21/24 Precautions Precautions Hx retrolisthesis PT-OP-B Current Condition Start: 04/21/24 09:19 Freq: Status: Active Protocol: Document 04/21/24 11:37 NM (Rec: 04/21/24 12:27 NM [id number]) Current Condition History of Current Condition Current Complaints pain, weakness, poor balance History of Current Condition Pt presents with low back pain . Pain is chronic for 7-8 months. She states that after working in the garden, it started to hurt so much across a big swatch. States that she had trouble with bending. Went to [place] for 2 months to help with dying brother; had difficulty with walking, bending, lifting, twisting. Had to use a walker to help with ambulation. She went to a chiro, which helped. Was having difficulty lying flat. No specific LEANNE. However, has had chronic pain. No longer have Sciatic pain. She reports not the leg. Pt reports was going to a chiro 2x a day for 3x/wk. Received manipulations and had pressure points worked on, which helped. She reports that she also gets a midback-L shoulder blade that spreads and goes away. Pt reports bad low back spasms, sleeping was interrupted. Impairments with walking, sleeping better because pills, bending, lifting, twisting, bed mobility, lying flat until in place. Reports that balance is not at good as used to be; reports that she removed grass to help; states not picking up feet. Reports no changes in bowel, bladder. HAs not had an MRI. Has been drinking wine but stopped due to pill intake Prior Treatments and Tests Lumbar spine X-ray 02/2023- Impression: Limited range of motion and multilevel lumbar spine spondylosis, most notably L4-L5 and L5-S1. Current Functional Impairments (Reported) Functional Limitations- ADL's pain with donning/doffing socks, donning/doffing pants pain with all household ADLs does not perform due to pain Functional Limitations- Mobility/Gait sitting- w/ heating pad 20 min standing and ambulating- few minutes STS Transfers- catching with extension PT-OP-C Subjective Start: 04/21/24 09:19 Freq: Status: Active Protocol: Document 06/14/24 10:17 AB (Rec: 06/14/24 12:27 AB [id number]) OP-PT Subjective Patient Comments Patient Comments Mehnaz reports the pain is traveling, gestures to lower thoracic upper LS. Patient rates pain 5/10. Lacking 31 deg left 24 deg right AROM HS length 90/90 position PT-OP-E Functional Tests Start: 04/21/24 09:19 Freq: Status: Active Protocol: Document 04/21/24 11:37 NM (Rec: 04/21/24 12:27 NM [id number]) Functional Tests Five Times Sit to Stand Test Score unable to complete at this time d/t pain PT-OP-F Manual Assessment Start: 04/21/24 09:19 Freq: Status: Active Protocol: Document 04/21/24 11:37 NM (Rec: 04/21/24 12:27 NM [id number]) Manual Assessments Soft Tissue Assessment Soft Tissue Mobility Assessment Increased restrictions of thoracic and lumbar paraspinals, lat, QL, hip flexors Joint Mobility Assessment Joint Mobility Assessment Hypermobility of lumbar spinous processes with PA springing in sitting and prone , hypomobility of hips B R>L PT-OP-G Mobility & Gait Start: 04/21/24 09:19 Freq: Status: Active Protocol: Document 04/21/24 11:37 NM (Rec: 04/21/24 12:27 NM [id number]) OP Mobility Evaluation Transfers Sit to Stand Requires BUE to push up from chair, must pause in coming to stand d/t pain OP Gait Assessment Gait Gait Assistance Required: Standby Assistance Distance (Feet) 150 Gait Deviations General Gait Pattern Antalgic,Flexed Trunk,Narrow Based Gait PT-OP-H Neuro Start: 04/21/24 09:19 Freq: Status: Active Protocol: Document 04/21/24 11:37 NM (Rec: 04/21/24 12:27 NM [id number]) Deep Tendon Reflex & Clonus Assessment Deep Tendon Reflex Bilateral Patellar Deep Tendon Reflex 1+ Diminished PT-OP-J Posture/Palpation/Skin Start: 04/21/24 09:19 Freq: Status: Active Protocol: Document 04/21/24 11:37 NM (Rec: 04/21/24 12:27 NM [id number]) Posture Evaluation Position Standing Head/C-Spine Posture Forward Head L-Spine Posture Decreased Lordosis Shoulder Posture (L) Rounded,(R) Rounded Pelvis Posture Posterior Tilted Hip Posture (L) Externally Rotated,(R) Externally Rotated Knee Posture (L) Genu Valgus,(R) Genu Valgus Comments Posture Comments Demos tendency for flexed trunk position instead of extension, even posturally when sitting Palpation Assessment Location lumbar spine Palpation Findings Soft Tissue Tightness,Spasm, Muscle Guarding Palpation Details Tender along lower lumbar spinous and transverse processes, L PSIS and L SIJ Tightness and tenderness along lumbar paraspinals L>R PT-OP-K Range of Motion Start: 04/21/24 09:19 Freq: Status: Active Protocol: Document 05/18/24 10:44 NM (Rec: 05/18/24 11:30 NM [id number]) Lumbar Spine Range of Motion Lumbar Spine Active Percentage Flexion 75 Extension 50 Rotation Left 75 Rotation Right 25 Lateral Flexion Left 50 Lateral Flexion Right 50 Comments IE: pain with all movements ashli ext; demos hitch with eccentric return following flexion 05/18/24: 80% flex, 50% ext, 75 % B LF, 75% rotation PT-OP-L Special Tests Start: 04/21/24 09:19 Freq: Status: Active Protocol: Document 04/21/24 11:37 NM (Rec: 04/21/24 12:27 NM [id number]) Special Tests Lumbar Spine Special Tests Distraction Test Results + Yo/Quadrant Test Results + Other Special Tests Special Tests Drop test: + (pain with slight heel raise and quick drop onto heels); reproduces familiar pain PT-OP-M Strength Start: 04/21/24 09:19 Freq: Status: Active Protocol: Document 05/18/24 10:44 NM (Rec: 05/18/24 11:30 NM [id number]) Trunk Strength Trunk Manual Muscle Testing Flexion 4- Good- Extension 4- Good- Rotation Left 4- Good- Rotation Right 4- Good- Lateral Flexion Left 4- Good- Lateral Flexion Right 4- Good- Comments IE: pain with resisted ext 05/18/24: 4-/5 Hip Strength Hip Manual Muscle Testing Right Flexion (L2) 3+ Fair+ Extension (S1) 3+ Fair+ Abduction 4- Good- Adduction 4- Good- External Rotation 4- Good- Internal Rotation 3+ Fair+ Comments pain with IR, hip ext, abd d/t core stabilization Left Flexion (L2) 3+ Fair+ Extension (S1) 3+ Fair+ Abduction 3+ Fair+ Adduction 4- Good- External Rotation 4- Good- Internal Rotation 3+ Fair+ Comments pain with IR PT-OP-Q Treatments Start: 04/21/24 09:19 Freq: Status: Active Protocol: Document 06/14/24 10:17 AB (Rec: 06/14/24 12:27 AB [id number]) Therapeutic Exercises Supine Exercises hamstring stretch Supine Exercise Name HEP Side bilateral Reps/Minutes 60 sec X 1 each LE with AROM knee flexion X 10 at end Comments verbal cues Standing Exercises sit to stand with band Side bilateral Resistance level 2 band at thighs Reps/Minutes X10 Comments Verbal cues to hold position of band and for hip hinge Pallof press Side right Resistance level one band Reps/Minutes X3 Comments not octavio reports increased pain thoracic and upper lumbar Therapeutic Activity Therapeutic Activity lift Name with self tac cue, band, dowel Reps/Minutes X4-5 each method Comments Able to perform with minimal ROM, best with dowel, See note above in Subj regarding HS length squat Reps/Minutes X 1 and X10 Comments mat behind, Patient acknowledged initiating first trial w/o hinge sit to stand Reps/Minutes X6 Comments Patient ed mechanics of sit to stand and self tactile cues for hip hinge. Manual Therapy Treatment Consent Patient gave verbal consent for manual Yes treatment Soft Tissue Mobilization lumbar spine Body Location B paraspinals, hamstring bilateral Mobilization Type Cross-Friction,Rolling, Sustained Pressure Intensity/Depth Moderate Body Position Sidelying PT-OP-T Assessment and Plan Start: 04/21/24 09:19 Freq: Status: Active Protocol: Document 06/14/24 10:17 AB (Rec: 06/14/24 12:27 [id number]) Physical Therapy Assessment Goals Four Impairment compliance with HEP Lumber Handler Goal (LTG) Pt will report compliance with HEP at least 3x/wk in order to maximize progression with PT and transition to maintenance program 05/18/24: performing HEP 3x/wk LTG Duration 10 weeks Three Impairment pain with transfers Short Term Goal (STG) Pt will be able to perform at least 8/10 STS without compensation or increase in low back pain in order to demonstrate increased BLE strength and symptom management during transfers 05/18/24: 10 STS, no increase in back pain but still present 06/14/24 Mehnaz reports decreased pain with sit to stand post sit to stand training and deadlift training . Lumber Handler Goal (LTG) Pt will be able to perform at least 5x STS at age-related norms (12.6 seconds) if appropriate in order to demonstrate increased BLE strength and symptom management during transfers LTG Duration 10 weeks Two Impairment trunk and BLE strength impaired d/t pain and weakness Lumber Handler Goal (LTG) Pt will increase trunk and BLE strength globally to at least 4/5 MMT without increase in back pain in order to demonstrate improved strength for gait and transfers 05/18/24: 4-/5 for all LTG Duration 10 weeks One Impairment BENJAMIN 58% impairment of ADLs/ IADLs and mobility Short Term Goal (STG) Pt will improve standing and ambulation tolerance to > 10 minutes with back pain <6/10 in order to demonstrate improved symptom management and activity tolerance. 05/18/24: pt reports >6/10 pain with standing, unable to achieve 10 min without support STG Duration 6 weeks Usp Goal (LTG) Pt will report that she is impaired <25% with ADLs/IADLs due to back pain in order to demonstrate improved symptom management LTG Duration 10 weeks Assessment Summary Assessment Mehnaz rates pain 1.5/10 back pain post deadlift, squat, sit to stand, manual, hamstring stretches, but increased to 3. 5/10 post Paloff press in standing. HS length likely limiting Deadlift mechanics. Physical Therapy Plan Frequency and Duration Frequency of Treatment 2x/Week Duration of treatment (weeks) 10 Plan of Care Start Date 04/21/24 Plan of Care End Date 07/01/24 Next Visit Focus/Plan Next Note Type Treatment Note Next Visit Plan Cont leg press vs STS w/o weight and w/ weight, continue with hip strengthening especially in standing. continue, but perform HS stretch review pre deadlift/ deadlift mechanics and add weight if tolerated. back strengthening: carries, lifting mechanics. Pallof, seated core. Manual: STM to low back as needed only
--- NOTE | 2024-06-21 12:27 | PT.OTN ---
Current Diagnoses Stiffness of right hip, not elsewhere classified (06/21/24) Stiffness of left hip, not elsewhere classified (06/21/24) Radiculopathy, site unspecified (06/21/24) Other lack of coordination (06/21/24) Weakness (06/21/24) Physical Therapy Treatment Note PT-OP-A Visit Information Start: 04/21/24 09:19 Freq: Status: Active Protocol: Document 06/21/24 10:48 AB (Rec: 06/21/24 12:27 AB [id number]) Out-Patient Physical Therapy Visit Information Visit Information Visit Type Treatment Note Visit Start Time 11:35 Visit Stop Time 12:21 Visit Number 12(10/22 post PN) Number of PRISON KEEPER Visits 2 Evaluation Information Evaluation Date 04/21/24 Precautions Precautions Hx retrolisthesis PT-OP-B Current Condition Start: 04/21/24 09:19 Freq: Status: Active Protocol: Document 04/21/24 11:37 NM (Rec: 04/21/24 12:27 NM [id number]) Current Condition History of Current Condition Current Complaints pain, weakness, poor balance History of Current Condition Pt presents with low back pain . Pain is chronic for 7-8 months. She states that after working in the garden, it started to hurt so much across a big swatch. States that she had trouble with bending. Went to [place] for 2 months to help with dying brother; had difficulty with walking, bending, lifting, twisting. Had to use a walker to help with ambulation. She went to a chiro, which helped. Was having difficulty lying flat. No specific LEANNE. However, has had chronic pain. No longer have Sciatic pain. She reports not the leg. Pt reports was going to a chiro 2x a day for 3x/wk. Received manipulations and had pressure points worked on, which helped. She reports that she also gets a midback-L shoulder blade that spreads and goes away. Pt reports bad low back spasms, sleeping was interrupted. Impairments with walking, sleeping better because pills, bending, lifting, twisting, bed mobility, lying flat until in place. Reports that balance is not at good as used to be; reports that she removed grass to help; states not picking up feet. Reports no changes in bowel, bladder. HAs not had an MRI. Has been drinking wine but stopped due to pill intake Prior Treatments and Tests Lumbar spine X-ray 02/2023- Impression: Limited range of motion and multilevel lumbar spine spondylosis, most notably L4-L5 and L5-S1. Current Functional Impairments (Reported) Functional Limitations- ADL's pain with donning/doffing socks, donning/doffing pants pain with all household ADLs does not perform due to pain Functional Limitations- Mobility/Gait sitting- w/ heating pad 20 min standing and ambulating- few minutes STS Transfers- catching with extension PT-OP-C Subjective Start: 04/21/24 09:19 Freq: Status: Active Protocol: Document 06/21/24 10:48 AB (Rec: 06/21/24 12:27 AB [id number]) OP-PT Subjective Patient Comments Patient Comments Mehnaz reports she is having difficulty with the hip hinge. Patient comments she does not feel her back is getting better, rates pain 2/10 now, increased to 5/10 once out and about. PT-OP-E Functional Tests Start: 04/21/24 09:19 Freq: Status: Active Protocol: Document 04/21/24 11:37 NM (Rec: 04/21/24 12:27 NM [id number]) Functional Tests Five Times Sit to Stand Test Score unable to complete at this time d/t pain PT-OP-F Manual Assessment Start: 04/21/24 09:19 Freq: Status: Active Protocol: Document 04/21/24 11:37 NM (Rec: 04/21/24 12:27 NM [id number]) Manual Assessments Soft Tissue Assessment Soft Tissue Mobility Assessment Increased restrictions of thoracic and lumbar paraspinals, lat, QL, hip flexors Joint Mobility Assessment Joint Mobility Assessment Hypermobility of lumbar spinous processes with PA springing in sitting and prone , hypomobility of hips B R>L PT-OP-G Mobility & Gait Start: 04/21/24 09:19 Freq: Status: Active Protocol: Document 04/21/24 11:37 NM (Rec: 04/21/24 12:27 NM [id number]) OP Mobility Evaluation Transfers Sit to Stand Requires BUE to push up from chair, must pause in coming to stand d/t pain OP Gait Assessment Gait Gait Assistance Required: Standby Assistance Distance (Feet) 150 Gait Deviations General Gait Pattern Antalgic,Flexed Trunk,Narrow Based Gait PT-OP-H Neuro Start: 04/21/24 09:19 Freq: Status: Active Protocol: Document 04/21/24 11:37 NM (Rec: 04/21/24 12:27 NM [id number]) Deep Tendon Reflex & Clonus Assessment Deep Tendon Reflex Bilateral Patellar Deep Tendon Reflex 1+ Diminished PT-OP-J Posture/Palpation/Skin Start: 04/21/24 09:19 Freq: Status: Active Protocol: Document 04/21/24 11:37 NM (Rec: 04/21/24 12:27 NM [id number]) Posture Evaluation Position Standing Head/C-Spine Posture Forward Head L-Spine Posture Decreased Lordosis Shoulder Posture (L) Rounded,(R) Rounded Pelvis Posture Posterior Tilted Hip Posture (L) Externally Rotated,(R) Externally Rotated Knee Posture (L) Genu Valgus,(R) Genu Valgus Comments Posture Comments Demos tendency for flexed trunk position instead of extension, even posturally when sitting Palpation Assessment Location lumbar spine Palpation Findings Soft Tissue Tightness,Spasm, Muscle Guarding Palpation Details Tender along lower lumbar spinous and transverse processes, L PSIS and L SIJ Tightness and tenderness along lumbar paraspinals L>R PT-OP-K Range of Motion Start: 04/21/24 09:19 Freq: Status: Active Protocol: Document 05/18/24 10:44 NM (Rec: 05/18/24 11:30 NM [id number]) Lumbar Spine Range of Motion Lumbar Spine Active Percentage Flexion 75 Extension 50 Rotation Left 75 Rotation Right 25 Lateral Flexion Left 50 Lateral Flexion Right 50 Comments IE: pain with all movements ashli ext; demos hitch with eccentric return following flexion 05/18/24: 80% flex, 50% ext, 75 % B LF, 75% rotation PT-OP-L Special Tests Start: 04/21/24 09:19 Freq: Status: Active Protocol: Document 04/21/24 11:37 NM (Rec: 04/21/24 12:27 NM [id number]) Special Tests Lumbar Spine Special Tests Distraction Test Results + Yo/Quadrant Test Results + Other Special Tests Special Tests Drop test: + (pain with slight heel raise and quick drop onto heels); reproduces familiar pain PT-OP-M Strength Start: 04/21/24 09:19 Freq: Status: Active Protocol: Document 05/18/24 10:44 NM (Rec: 05/18/24 11:30 NM [id number]) Trunk Strength Trunk Manual Muscle Testing Flexion 4- Good- Extension 4- Good- Rotation Left 4- Good- Rotation Right 4- Good- Lateral Flexion Left 4- Good- Lateral Flexion Right 4- Good- Comments IE: pain with resisted ext 05/18/24: 4-/5 Hip Strength Hip Manual Muscle Testing Right Flexion (L2) 3+ Fair+ Extension (S1) 3+ Fair+ Abduction 4- Good- Adduction 4- Good- External Rotation 4- Good- Internal Rotation 3+ Fair+ Comments pain with IR, hip ext, abd d/t core stabilization Left Flexion (L2) 3+ Fair+ Extension (S1) 3+ Fair+ Abduction 3+ Fair+ Adduction 4- Good- External Rotation 4- Good- Internal Rotation 3+ Fair+ Comments pain with IR PT-OP-Q Treatments Start: 04/21/24 09:19 Freq: Status: Active Protocol: Document 06/21/24 10:48 AB (Rec: 06/21/24 12:27 AB [id number]) Therapeutic Exercises Supine Exercises hamstring stretch Supine Exercise Name HEP Side bilateral Reps/Minutes 60 sec X 2each LE with AROM knee flexion X 10 at end Comments post manual pre sit to stand oc stretch Supine Exercise Name w/ knee to chest (HEP) Side bilateral Reps/Minutes 60 ea Comments post manual Standing Exercises sit to stand with band Standing Exercise Name 24.25 inch seat height Side bilateral Resistance level 2 band at thighs Reps/Minutes X10 without band X 10 X2with band Comments verbal and visual cues for hip hinge Pallof press Side right Resistance level one band Reps/Minutes X10 also X 10 seated Comments reports a little inc pain standing none seated Manual Therapy Treatment Soft Tissue Mobilization LE's Body Location bilateral hamstrings and hip flexors at groin Mobilization Type Cross-Friction,Rolling Intensity/Depth Moderate Body Position Hooklying Comments and prone with 2 pillows underabd/hips and towel roll at forehead lumbar spine Body Location B paraspinals, Mobilization Type Cross-Friction,Rolling, Sustained Pressure Intensity/Depth Moderate Body Position Prone Comments with 2 pillows underabd/hips and towel roll at forehead Taping lower thoracic to SI Treatment Focus for tacitle cues for posture and for pain Type of Tape Kinesiotape Skin Inspection WNL Comments I strips along paraspinals distal to proximal, horizontal across spine for pain. Patient flexed over mat for taping PT-OP-T Assessment and Plan Start: 04/21/24 09:19 Freq: Status: Active Protocol: Document 06/21/24 10:48 AB (Rec: 06/21/24 12:27 AB [id number]) Physical Therapy Assessment Goals Four Impairment compliance with HEP Foreign Collection Clerk Goal (LTG) Pt will report compliance with HEP at least 3x/wk in order to maximize progression with PT and transition to maintenance program 05/18/24: performing HEP 3x/wk LTG Duration 10 weeks Three Impairment pain with transfers Short Term Goal (STG) Pt will be able to perform at least 8/10 STS without compensation or increase in low back pain in order to demonstrate increased BLE strength and symptom management during transfers 05/18/24: 10 STS, no increase in back pain but still present 06/14/24 Mehnaz reports decreased pain with sit to stand post sit to stand training and deadlift training . Foreign Collection Clerk Goal (LTG) Pt will be able to perform at least 5x STS at age-related norms (12.6 seconds) if appropriate in order to demonstrate increased BLE strength and symptom management during transfers LTG Duration 10 weeks Two Impairment trunk and BLE strength impaired d/t pain and weakness Foreign Collection Clerk Goal (LTG) Pt will increase trunk and BLE strength globally to at least 4/5 MMT without increase in back pain in order to demonstrate improved strength for gait and transfers 05/18/24: 4-/5 for all LTG Duration 10 weeks One Impairment BENJAMIN 58% impairment of ADLs/ IADLs and mobility Short Term Goal (STG) Pt will improve standing and ambulation tolerance to > 10 minutes with back pain <6/10 in order to demonstrate improved symptom management and activity tolerance. 05/18/24: pt reports >6/10 pain with standing, unable to achieve 10 min without support STG Duration 6 weeks Foreign Collection Clerk Goal (LTG) Pt will report that she is impaired <25% with ADLs/IADLs due to back pain in order to demonstrate improved symptom management LTG Duration 10 weeks Assessment Summary Assessment Mehnaz rates back pain 3/10 end of session. Good return demonstration for sit to stand from a raised seat height, but cont to require increased verbal cues. Physical Therapy Plan Frequency and Duration Frequency of Treatment 2x/Week Duration of treatment (weeks) 10 Plan of Care Start Date 04/21/24 Plan of Care End Date 07/01/24 Next Visit Focus/Plan Next Note Type Treatment Note Next Visit Plan Assess octavio to tapeCont leg press vs STS w/o weight and w/ weight, continue with hip strengthening especially in standing. continue, but perform HS stretch review pre deadlift/ deadlift mechanics and add weight if tolerated. back strengthening: carries, lifting mechanics. Pallof, seated core. Manual: STM to low back as needed only
--- NOTE | 2024-06-24 12:49 | PT.OTN ---
Current Diagnoses Stiffness of right hip, not elsewhere classified (06/24/24) Stiffness of left hip, not elsewhere classified (06/24/24) Radiculopathy, site unspecified (06/24/24) Other lack of coordination (06/24/24) Weakness (06/24/24) Physical Therapy Treatment Note PT-OP-A Visit Information Start: 04/21/24 09:19 Freq: Status: Active Protocol: Document 06/24/24 11:29 AB (Rec: 06/24/24 12:49 AB [id number]) Out-Patient Physical Therapy Visit Information Visit Information Visit Type Treatment Note Visit Start Time 11:32 Visit Stop Time 12:23 Visit Number 13(11/22) Number of MARKETING TRAINEE Visits 3 Evaluation Information Evaluation Date 04/21/24 Precautions Precautions Hx retrolisthesis PT-OP-B Current Condition Start: 04/21/24 09:19 Freq: Status: Active Protocol: Document 04/21/24 11:37 NM (Rec: 04/21/24 12:27 NM [id number]) Current Condition History of Current Condition Current Complaints pain, weakness, poor balance History of Current Condition Pt presents with low back pain . Pain is chronic for 7-8 months. She states that after working in the garden, it started to hurt so much across a big swatch. States that she had trouble with bending. Went to [place] for 2 months to help with dying brother; had difficulty with walking, bending, lifting, twisting. Had to use a walker to help with ambulation. She went to a chiro, which helped. Was having difficulty lying flat. No specific LEANNE. However, has had chronic pain. No longer have Sciatic pain. She reports not the leg. Pt reports was going to a chiro 2x a day for 3x/wk. Received manipulations and had pressure points worked on, which helped. She reports that she also gets a midback-L shoulder blade that spreads and goes away. Pt reports bad low back spasms, sleeping was interrupted. Impairments with walking, sleeping better because pills, bending, lifting, twisting, bed mobility, lying flat until in place. Reports that balance is not at good as used to be; reports that she removed grass to help; states not picking up feet. Reports no changes in bowel, bladder. HAs not had an MRI. Has been drinking wine but stopped due to pill intake Prior Treatments and Tests Lumbar spine X-ray 02/2023- Impression: Limited range of motion and multilevel lumbar spine spondylosis, most notably L4-L5 and L5-S1. Current Functional Impairments (Reported) Functional Limitations- ADL's pain with donning/doffing socks, donning/doffing pants pain with all household ADLs does not perform due to pain Functional Limitations- Mobility/Gait sitting- w/ heating pad 20 min standing and ambulating- few minutes STS Transfers- catching with extension PT-OP-C Subjective Start: 04/21/24 09:19 Freq: Status: Active Protocol: Document 06/24/24 11:29 AB (Rec: 06/24/24 12:49 AB [id number]) OP-PT Subjective Patient Comments Patient Comments Mehnaz reports the tape is helpful, but by the 3rd day it wasn't helping as much. Patient rates back pain 07/25 start of ession PT-OP-E Functional Tests Start: 04/21/24 09:19 Freq: Status: Active Protocol: Document 04/21/24 11:37 NM (Rec: 04/21/24 12:27 NM [id number]) Functional Tests Five Times Sit to Stand Test Score unable to complete at this time d/t pain PT-OP-F Manual Assessment Start: 04/21/24 09:19 Freq: Status: Active Protocol: Document 04/21/24 11:37 NM (Rec: 04/21/24 12:27 NM [id number]) Manual Assessments Soft Tissue Assessment Soft Tissue Mobility Assessment Increased restrictions of thoracic and lumbar paraspinals, lat, QL, hip flexors Joint Mobility Assessment Joint Mobility Assessment Hypermobility of lumbar spinous processes with PA springing in sitting and prone , hypomobility of hips B R>L PT-OP-G Mobility & Gait Start: 04/21/24 09:19 Freq: Status: Active Protocol: Document 04/21/24 11:37 NM (Rec: 04/21/24 12:27 NM [id number]) OP Mobility Evaluation Transfers Sit to Stand Requires BUE to push up from chair, must pause in coming to stand d/t pain OP Gait Assessment Gait Gait Assistance Required: Standby Assistance Distance (Feet) 150 Gait Deviations General Gait Pattern Antalgic,Flexed Trunk,Narrow Based Gait PT-OP-H Neuro Start: 04/21/24 09:19 Freq: Status: Active Protocol: Document 04/21/24 11:37 NM (Rec: 04/21/24 12:27 NM [id number]) Deep Tendon Reflex & Clonus Assessment Deep Tendon Reflex Bilateral Patellar Deep Tendon Reflex 1+ Diminished PT-OP-J Posture/Palpation/Skin Start: 04/21/24 09:19 Freq: Status: Active Protocol: Document 04/21/24 11:37 NM (Rec: 04/21/24 12:27 NM [id number]) Posture Evaluation Position Standing Head/C-Spine Posture Forward Head L-Spine Posture Decreased Lordosis Shoulder Posture (L) Rounded,(R) Rounded Pelvis Posture Posterior Tilted Hip Posture (L) Externally Rotated,(R) Externally Rotated Knee Posture (L) Genu Valgus,(R) Genu Valgus Comments Posture Comments Demos tendency for flexed trunk position instead of extension, even posturally when sitting Palpation Assessment Location lumbar spine Palpation Findings Soft Tissue Tightness,Spasm, Muscle Guarding Palpation Details Tender along lower lumbar spinous and transverse processes, L PSIS and L SIJ Tightness and tenderness along lumbar paraspinals L>R PT-OP-K Range of Motion Start: 04/21/24 09:19 Freq: Status: Active Protocol: Document 05/18/24 10:44 NM (Rec: 05/18/24 11:30 NM [id number]) Lumbar Spine Range of Motion Lumbar Spine Active Percentage Flexion 75 Extension 50 Rotation Left 75 Rotation Right 25 Lateral Flexion Left 50 Lateral Flexion Right 50 Comments IE: pain with all movements ashli ext; demos hitch with eccentric return following flexion 05/18/24: 80% flex, 50% ext, 75 % B LF, 75% rotation PT-OP-L Special Tests Start: 04/21/24 09:19 Freq: Status: Active Protocol: Document 04/21/24 11:37 NM (Rec: 04/21/24 12:27 NM [id number]) Special Tests Lumbar Spine Special Tests Distraction Test Results + Yo/Quadrant Test Results + Other Special Tests Special Tests Drop test: + (pain with slight heel raise and quick drop onto heels); reproduces familiar pain PT-OP-M Strength Start: 04/21/24 09:19 Freq: Status: Active Protocol: Document 05/18/24 10:44 NM (Rec: 05/18/24 11:30 NM [id number]) Trunk Strength Trunk Manual Muscle Testing Flexion 4- Good- Extension 4- Good- Rotation Left 4- Good- Rotation Right 4- Good- Lateral Flexion Left 4- Good- Lateral Flexion Right 4- Good- Comments IE: pain with resisted ext 05/18/24: 4-/5 Hip Strength Hip Manual Muscle Testing Right Flexion (L2) 3+ Fair+ Extension (S1) 3+ Fair+ Abduction 4- Good- Adduction 4- Good- External Rotation 4- Good- Internal Rotation 3+ Fair+ Comments pain with IR, hip ext, abd d/t core stabilization Left Flexion (L2) 3+ Fair+ Extension (S1) 3+ Fair+ Abduction 3+ Fair+ Adduction 4- Good- External Rotation 4- Good- Internal Rotation 3+ Fair+ Comments pain with IR PT-OP-Q Treatments Start: 04/21/24 09:19 Freq: Status: Active Protocol: Document 06/24/24 11:29 AB (Rec: 06/24/24 12:49 AB [id number]) Therapeutic Exercises Supine Exercises hamstring stretch Supine Exercise Name HEP Side bilateral Reps/Minutes 60 sec X 2each LE with AROM knee flexion X 10 at end Comments post manual pre sit to stand Standing Exercises hip ext Side bilateral Resistance level 3 band Reps/Minutes X10 each LE Comments VC for abd bracing and small lfit resisted stepping Standing Exercise Name abduction Side bilateral Resistance lvl 3 band at thighs Reps/Minutes 8x3 ft ea dreiction LEft and right Comments denies pain sit to stand with band Standing Exercise Name 24 inch seat height and 23 inch seat height Side bilateral Resistance level 3 band at thighs Reps/Minutes X 10 X2 with band Comments verbal and visual cues for hip hinge Manual Therapy Treatment Consent Patient gave verbal consent for manual Yes treatment Soft Tissue Mobilization LE's Body Location bilateral hamstrings and hip flexors at groin Mobilization Type Cross-Friction,Rolling Intensity/Depth Moderate Body Position Hooklying Comments and prone with 2 pillows underabd/hips and towel roll at forehead lumbar spine Body Location B paraspinals, Mobilization Type Cross-Friction,Rolling, Sustained Pressure Intensity/Depth Moderate Body Position Prone Comments with 2 pillows underabd/hips and towel roll at forehead Taping lower thoracic to SI Treatment Focus for tacitle cues for posture and for pain Type of Tape Kinesiotape Skin Inspection WNL Comments I strips along paraspinals distal to proximal, horizontal across spine for pain. Patient flexed over mat for taping PT-OP-T Assessment and Plan Start: 04/21/24 09:19 Freq: Status: Active Protocol: Document 06/24/24 11:29 AB (Rec: 06/24/24 12:49 AB [id number]) Physical Therapy Assessment Goals Four Impairment compliance with HEP Nutrition Director Goal (LTG) Pt will report compliance with HEP at least 3x/wk in order to maximize progression with PT and transition to maintenance program 05/18/24: performing HEP 3x/wk LTG Duration 10 weeks Three Impairment pain with transfers Short Term Goal (STG) Pt will be able to perform at least 8/10 STS without compensation or increase in low back pain in order to demonstrate increased BLE strength and symptom management during transfers 05/18/24: 10 STS, no increase in back pain but still present 06/14/24 Menhaz reports decreased pain with sit to stand post sit to stand training and deadlift training . Nutrition Director Goal (LTG) Pt will be able to perform at least 5x STS at age-related norms (12.6 seconds) if appropriate in order to demonstrate increased BLE strength and symptom management during transfers LTG Duration 10 weeks Two Impairment trunk and BLE strength impaired d/t pain and weakness [facility] Goal (LTG) Pt will increase trunk and BLE strength globally to at least 4/5 MMT without increase in back pain in order to demonstrate improved strength for gait and transfers 05/18/24: 4-/5 for all LTG Duration 10 weeks One Impairment BENJAMIN 58% impairment of ADLs/ IADLs and mobility Short Term Goal (STG) Pt will improve standing and ambulation tolerance to > 10 minutes with back pain <6/10 in order to demonstrate improved symptom management and activity tolerance. 05/18/24: pt reports >6/10 pain with standing, unable to achieve 10 min without support STG Duration 6 weeks Nutrition Director Goal (LTG) Pt will report that she is impaired <25% with ADLs/IADLs due to back pain in order to demonstrate improved symptom management LTG Duration 10 weeks Assessment Summary Assessment Patient rates pain 0/10 end of session, able to perform squat with good form to 23 inch seat height this session. Physical Therapy Plan Frequency and Duration Frequency of Treatment 2x/Week Duration of treatment (weeks) 10 Plan of Care Start Date 04/21/24 Plan of Care End Date 07/01/24 Next Visit Focus/Plan Next Note Type Treatment Note Next Visit Plan Cont leg press vs STS w/o weight and w/ weight, continue with hip strengthening especially in standing. continue, but perform HS stretch review pre deadlift/ deadlift mechanics and add weight if tolerated. back strengthening: carries, lifting mechanics. Pallof, seated core. Manual: STM to low back as needed only
--- NOTE | 2024-06-28 15:54 | PT.OTN ---
Current Diagnoses Stiffness of right hip, not elsewhere classified (06/28/24) Stiffness of left hip, not elsewhere classified (06/28/24) Radiculopathy, site unspecified (06/28/24) Other lack of coordination (06/28/24) Weakness (06/28/24) Physical Therapy Treatment Note PT-OP-A Visit Information Start: 04/21/24 09:19 Freq: Status: Active Protocol: Document 06/28/24 11:31 NM (Rec: 06/28/24 12:25 NM [id number]) Out-Patient Physical Therapy Visit Information Visit Information Visit Type Progress Note Visit Start Time 11:32 Visit Stop Time 12:15 Visit Number 14 Evaluation Information Evaluation Date 04/21/24 Precautions Precautions Hx retrolisthesis PT-OP-B Current Condition Start: 04/21/24 09:19 Freq: Status: Active Protocol: Document 04/21/24 11:37 NM (Rec: 04/21/24 12:27 NM [id number]) Current Condition History of Current Condition Current Complaints pain, weakness, poor balance History of Current Condition Pt presents with low back pain . Pain is chronic for 7-8 months. She states that after working in the garden, it started to hurt so much across a big swatch. States that she had trouble with bending. Went to [place] for 2 months to help with dying brother; had difficulty with walking, bending, lifting, twisting. Had to use a walker to help with ambulation. She went to a chiro, which helped. Was having difficulty lying flat. No specific LEANNE. However, has had chronic pain. No longer have Sciatic pain. She reports not the leg. Pt reports was going to a chiro 2x a day for 3x/wk. Received manipulations and had pressure points worked on, which helped. She reports that she also gets a midback-L shoulder blade that spreads and goes away. Pt reports bad low back spasms, sleeping was interrupted. Impairments with walking, sleeping better because pills, bending, lifting, twisting, bed mobility, lying flat until in place. Reports that balance is not at good as used to be; reports that she removed grass to help; states not picking up feet. Reports no changes in bowel, bladder. HAs not had an MRI. Has been drinking wine but stopped due to pill intake Prior Treatments and Tests Lumbar spine X-ray 02/2023- Impression: Limited range of motion and multilevel lumbar spine spondylosis, most notably L4-L5 and L5-S1. Current Functional Impairments (Reported) Functional Limitations- ADL's pain with donning/doffing socks, donning/doffing pants pain with all household ADLs does not perform due to pain Functional Limitations- Mobility/Gait sitting- w/ heating pad 20 min standing and ambulating- few minutes STS Transfers- catching with extension PT-OP-C Subjective Start: 04/21/24 09:19 Freq: Status: Active Protocol: Document 06/28/24 11:31 NM (Rec: 06/28/24 12:25 NM [id number]) OP-PT Subjective Patient Comments Patient Comments Pt reports pain is intermittent. She continues to report relief with tape. Planning to ask MD for an MRI due to continued pain. She reports at last several sessions, states that her pain just moves around. Has appt with Dr. Perera on 07/19. PT-OP-E Functional Tests Start: 04/21/24 09:19 Freq: Status: Active Protocol: Document 04/21/24 11:37 NM (Rec: 04/21/24 12:27 NM [id number]) Functional Tests Five Times Sit to Stand Test Score unable to complete at this time d/t pain PT-OP-F Manual Assessment Start: 04/21/24 09:19 Freq: Status: Active Protocol: Document 04/21/24 11:37 NM (Rec: 04/21/24 12:27 NM [id number]) Manual Assessments Soft Tissue Assessment Soft Tissue Mobility Assessment Increased restrictions of thoracic and lumbar paraspinals, lat, QL, hip flexors Joint Mobility Assessment Joint Mobility Assessment Hypermobility of lumbar spinous processes with PA springing in sitting and prone , hypomobility of hips B R>L PT-OP-G Mobility & Gait Start: 04/21/24 09:19 Freq: Status: Active Protocol: Document 04/21/24 11:37 NM (Rec: 04/21/24 12:27 NM [id number]) OP Mobility Evaluation Transfers Sit to Stand Requires BUE to push up from chair, must pause in coming to stand d/t pain OP Gait Assessment Gait Gait Assistance Required: Standby Assistance Distance (Feet) 150 Gait Deviations General Gait Pattern Antalgic,Flexed Trunk,Narrow Based Gait PT-OP-H Neuro Start: 04/21/24 09:19 Freq: Status: Active Protocol: Document 04/21/24 11:37 NM (Rec: 04/21/24 12:27 NM [id number]) Deep Tendon Reflex & Clonus Assessment Deep Tendon Reflex Bilateral Patellar Deep Tendon Reflex 1+ Diminished PT-OP-J Posture/Palpation/Skin Start: 04/21/24 09:19 Freq: Status: Active Protocol: Document 04/21/24 11:37 NM (Rec: 04/21/24 12:27 NM [id number]) Posture Evaluation Position Standing Head/C-Spine Posture Forward Head L-Spine Posture Decreased Lordosis Shoulder Posture (L) Rounded,(R) Rounded Pelvis Posture Posterior Tilted Hip Posture (L) Externally Rotated,(R) Externally Rotated Knee Posture (L) Genu Valgus,(R) Genu Valgus Comments Posture Comments Demos tendency for flexed trunk position instead of extension, even posturally when sitting Palpation Assessment Location lumbar spine Palpation Findings Soft Tissue Tightness,Spasm, Muscle Guarding Palpation Details Tender along lower lumbar spinous and transverse processes, L PSIS and L SIJ Tightness and tenderness along lumbar paraspinals L>R PT-OP-K Range of Motion Start: 04/21/24 09:19 Freq: Status: Active Protocol: Document 06/28/24 11:31 NM (Rec: 06/28/24 12:25 NM [id number]) Lumbar Spine Range of Motion Lumbar Spine Active Percentage Flexion 90 Extension 50 Rotation Left 100 Rotation Right 75 Lateral Flexion Left 75 Lateral Flexion Right 100 Comments IE: pain with all movements ashli ext; demos hitch with eccentric return following flexion 05/18/24: 80% flex, 50% ext, 75 % B LF, 75% rotation PT-OP-L Special Tests Start: 04/21/24 09:19 Freq: Status: Active Protocol: Document 04/21/24 11:37 NM (Rec: 04/21/24 12:27 NM [id number]) Special Tests Lumbar Spine Special Tests Distraction Test Results + Yo/Quadrant Test Results + Other Special Tests Special Tests Drop test: + (pain with slight heel raise and quick drop onto heels); reproduces familiar pain PT-OP-M Strength Start: 04/21/24 09:19 Freq: Status: Active Protocol: Document 06/28/24 11:31 NM (Rec: 06/28/24 12:25 NM [id number]) Trunk Strength Trunk Manual Muscle Testing Flexion 4 Good Extension 4 Good Rotation Left 4 Good Rotation Right 4 Good Lateral Flexion Left 4 Good Lateral Flexion Right 4 Good Comments IE: pain with resisted ext 05/18/24: 4-/5 06/28/24: 4/5 for all MMT; pain free but challenging to stabilize trunk PT-OP-Q Treatments Start: 04/21/24 09:19 Freq: Status: Active Protocol: Document 06/28/24 11:31 NM (Rec: 06/28/24 12:25 NM [id number]) Therapeutic Exercises Sidelying Exercises QL stretch Side bilateral Equipment Used ~ side plank on elbows, knees bent Reps/Minutes 30 ea Comments cued alignment Standing Exercises deadlift Standing Exercise Name foam roller cues Side bilateral Equipment Used 1. BLE extended at knees Reps/Minutes 10 Comments prn cues for rhomboid facilitation to keep lumbar ext sit to stand with band Side bilateral Resistance level 4 band at thighs Reps/Minutes 10 Comments self tactile cues hip hinge Other Exercises carries Other Exercise Name unilateral carry Resistance 8# db Reps/Minutes 2x25 ft Comments cued core bracing, no trunk rotation for exercise Manual Therapy Treatment Consent Patient gave verbal consent for manual Yes treatment Soft Tissue Mobilization LE's Body Location glutes Mobilization Type Cross-Friction,Rolling Intensity/Depth Moderate Body Position Sidelying lumbar spine Body Location B paraspinals, QL Mobilization Type Cross-Friction,Rolling, Sustained Pressure Intensity/Depth Moderate Body Position Sidelying Comments Deep QL mobilization, prior to stretching, provides pt relief Performed with sidelying lateral flexion and then posterior pelvic tilt facilitation Joint Mobilizations L hip Direction PA Grade III Body Position Sidelying Reps/Duration 2x30 Comments with hip extension MWM Taping lower thoracic to SI Treatment Focus for tacitle cues for posture and for pain Type of Tape Kinesiotape Skin Inspection WNL Comments I strips along paraspinals distal to proximal, horizontal across spine for pain. performed in sitting today skin assessed prior and after taping; no redness from past tape prior to re-taping. Educated to remove in 3-5 days unless skin irritation or rash occurs, then remove sb PT-OP-T Assessment and Plan Start: 04/21/24 09:19 Freq: Status: Active Protocol: Document 06/28/24 11:31 NM (Rec: 06/28/24 12:25 NM [id number]) Physical Therapy Assessment Goals Four Impairment compliance with HEP Body Service Team Member Goal (LTG) Pt will report compliance with HEP at least 3x/wk in order to maximize progression with PT and transition to maintenance program 05/18/24: performing HEP 3x/wk LTG Duration 10 weeks MET Three Impairment pain with transfers Short Term Goal (STG) Pt will be able to perform at least 8/10 STS without compensation or increase in low back pain in order to demonstrate increased BLE strength and symptom management during transfers 05/18/24: 10 STS, no increase in back pain but still present 06/14/24 Mehnaz reports decreased pain with sit to stand post sit to stand training and deadlift training . 06/28/24: no back pain during STS from standard ht (on plinth) with band; prn cues for hip hinge STG Duration MET Custodial Goal (LTG) Pt will be able to perform at least 5x STS at age-related norms (12.6 seconds) if appropriate in order to demonstrate increased BLE strength and symptom management during transfers 06/28/24: 13.2 sec, demos difficulty with hip hinge- PROGRESSING LTG Duration 8 weeks Two Impairment trunk and BLE strength impaired d/t pain and weakness Body Service Team Member Goal (LTG) Pt will increase trunk and BLE strength globally to at least 4/5 MMT without increase in back pain in order to demonstrate improved strength for gait and transfers 05/18/24: 4-/5 for all 06/28/24: 4/5 for all, pain free LTG Duration 10 weeks MET 06/28/24 One Impairment BENJAMIN 58% impairment of ADLs/ IADLs and mobility Short Term Goal (STG) Pt will improve standing and ambulation tolerance to > 10 minutes with back pain <6/10 in order to demonstrate improved symptom management and activity tolerance. 05/18/24: pt reports >6/10 pain with standing, unable to achieve 10 min without support STG Duration 6 weeks Body Service Team Member Goal (LTG) Pt will report that she is impaired <30% with ADLs/IADLs due to back pain in order to demonstrate improved symptom management 06/28/24: 44/100 (44% impairment), 1 MCID improvement LTG Duration 8 weeks- GOAL UPDATED Assessment Summary Assessment Pt responds well to progression in therapeutic exercise today. Good feedback for sidelying QL stretch, followed with unilateral carries to improve stability along kinetic chain. Cueing needed for posture and form, but reports less pain in low back today while performing carries compared to previous sessions. Initiated deadlift with knees extended for posterior chain lengthening then lumbar extension strengthening. Cues required for form and to maintain hinge along with neutral spine as pt has tendency for complete trunk flexion. Compared to previous sessions, pt does not have pain with full trunk flexion and demos improvements in overall trunk ROM. Trialed hip extension mobilizations to facilitate improved extension during gait and along with facilitation of posterior pelvic tilt. Physical Therapy Plan Frequency and Duration Frequency of Treatment 1-2x/wk Duration of treatment (weeks) 8 Plan of Care Start Date 04/21/24 Plan of Care End Date 07/01/24 Therapeutic Interventions Therapeutic Interventions Balance Training,Gait Training ,Home Exercise Program,Joint Mobilizations,Manual Therapy, Neuromuscular Re-education, Orthotic/Prosthetic Management ,Patient/Caregiver Education, Self-Care/Home Management, Sensory Integration,Soft Tissue Mobilization,Taping, Therapeutic Activities, Therapeutic Exercises Modalities Cold Pack/Ice Massage,Electric Stimulation,Hot Packs, Ultrasound Other Therapeutic Interventions No lumbar spine mobilization d /t instability on past imaging (retrolisthesis) Pelvic realignment and MET as needed Next Visit Focus/Plan Next Note Type Treatment Note Next Visit Plan Cont deadlift- add band. Cont leg press vs STS w/o weight and w/ weight, continue with hip strengthening especially in standing. continue, but perform HS stretch review pre deadlift/ deadlift mechanics and add weight if tolerated. back strengthening: carries, lifting mechanics. seated ext vs quadruped Manual: STM to low back as needed only
--- NOTE | 2024-06-28 15:57 | PT.OTN ---
Current Diagnoses Stiffness of right hip, not elsewhere classified (06/28/24) Stiffness of left hip, not elsewhere classified (06/28/24) Radiculopathy, site unspecified (06/28/24) Other lack of coordination (06/28/24) Weakness (06/28/24) Physical Therapy Treatment Note PT-OP-A Visit Information Start: 04/21/24 09:19 Freq: Status: Active Protocol: Document 06/28/24 11:31 NM (Rec: 06/28/24 12:25 NM [id number]) Out-Patient Physical Therapy Visit Information Visit Information Visit Type Progress Note Visit Start Time 11:32 Visit Stop Time 12:15 Visit Number 14 Evaluation Information Evaluation Date 04/21/24 Precautions Precautions Hx retrolisthesis PT-OP-B Current Condition Start: 04/21/24 09:19 Freq: Status: Active Protocol: Document 04/21/24 11:37 NM (Rec: 04/21/24 12:27 NM [id number]) Current Condition History of Current Condition Current Complaints pain, weakness, poor balance History of Current Condition Pt presents with low back pain . Pain is chronic for 7-8 months. She states that after working in the garden, it started to hurt so much across a big swatch. States that she had trouble with bending. Went to [place] for 2 months to help with dying brother; had difficulty with walking, bending, lifting, twisting. Had to use a walker to help with ambulation. She went to a chiro, which helped. Was having difficulty lying flat. No specific LEANNE. However, has had chronic pain. No longer have Sciatic pain. She reports not the leg. Pt reports was going to a chiro 2x a day for 3x/wk. Received manipulations and had pressure points worked on, which helped. She reports that she also gets a midback-L shoulder blade that spreads and goes away. Pt reports bad low back spasms, sleeping was interrupted. Impairments with walking, sleeping better because pills, bending, lifting, twisting, bed mobility, lying flat until in place. Reports that balance is not at good as used to be; reports that she removed grass to help; states not picking up feet. Reports no changes in bowel, bladder. HAs not had an MRI. Has been drinking wine but stopped due to pill intake Prior Treatments and Tests Lumbar spine X-ray 02/2023- Impression: Limited range of motion and multilevel lumbar spine spondylosis, most notably L4-L5 and L5-S1. Current Functional Impairments (Reported) Functional Limitations- ADL's pain with donning/doffing socks, donning/doffing pants pain with all household ADLs does not perform due to pain Functional Limitations- Mobility/Gait sitting- w/ heating pad 20 min standing and ambulating- few minutes STS Transfers- catching with extension PT-OP-C Subjective Start: 04/21/24 09:19 Freq: Status: Active Protocol: Document 06/28/24 11:31 NM (Rec: 06/28/24 12:25 NM [id number]) OP-PT Subjective Patient Comments Patient Comments Pt reports pain is intermittent. She continues to report relief with tape. Planning to ask MD for an MRI due to continued pain. She reports at last several sessions, states that her pain just moves around. Has appt with Dr. Perera on 07/19. PT-OP-E Functional Tests Start: 04/21/24 09:19 Freq: Status: Active Protocol: Document 04/21/24 11:37 NM (Rec: 04/21/24 12:27 NM [id number]) Functional Tests Five Times Sit to Stand Test Score unable to complete at this time d/t pain PT-OP-F Manual Assessment Start: 04/21/24 09:19 Freq: Status: Active Protocol: Document 04/21/24 11:37 NM (Rec: 04/21/24 12:27 NM [id number]) Manual Assessments Soft Tissue Assessment Soft Tissue Mobility Assessment Increased restrictions of thoracic and lumbar paraspinals, lat, QL, hip flexors Joint Mobility Assessment Joint Mobility Assessment Hypermobility of lumbar spinous processes with PA springing in sitting and prone , hypomobility of hips B R>L PT-OP-G Mobility & Gait Start: 04/21/24 09:19 Freq: Status: Active Protocol: Document 04/21/24 11:37 NM (Rec: 04/21/24 12:27 NM [id number]) OP Mobility Evaluation Transfers Sit to Stand Requires BUE to push up from chair, must pause in coming to stand d/t pain OP Gait Assessment Gait Gait Assistance Required: Standby Assistance Distance (Feet) 150 Gait Deviations General Gait Pattern Antalgic,Flexed Trunk,Narrow Based Gait PT-OP-H Neuro Start: 04/21/24 09:19 Freq: Status: Active Protocol: Document 04/21/24 11:37 NM (Rec: 04/21/24 12:27 NM [id number]) Deep Tendon Reflex & Clonus Assessment Deep Tendon Reflex Bilateral Patellar Deep Tendon Reflex 1+ Diminished PT-OP-J Posture/Palpation/Skin Start: 04/21/24 09:19 Freq: Status: Active Protocol: Document 04/21/24 11:37 NM (Rec: 04/21/24 12:27 NM [id number]) Posture Evaluation Position Standing Head/C-Spine Posture Forward Head L-Spine Posture Decreased Lordosis Shoulder Posture (L) Rounded,(R) Rounded Pelvis Posture Posterior Tilted Hip Posture (L) Externally Rotated,(R) Externally Rotated Knee Posture (L) Genu Valgus,(R) Genu Valgus Comments Posture Comments Demos tendency for flexed trunk position instead of extension, even posturally when sitting Palpation Assessment Location lumbar spine Palpation Findings Soft Tissue Tightness,Spasm, Muscle Guarding Palpation Details Tender along lower lumbar spinous and transverse processes, L PSIS and L SIJ Tightness and tenderness along lumbar paraspinals L>R PT-OP-K Range of Motion Start: 04/21/24 09:19 Freq: Status: Active Protocol: Document 06/28/24 11:31 NM (Rec: 06/28/24 12:25 NM [id number]) Lumbar Spine Range of Motion Lumbar Spine Active Percentage Flexion 90 Extension 50 Rotation Left 100 Rotation Right 75 Lateral Flexion Left 75 Lateral Flexion Right 100 Comments IE: pain with all movements ashli ext; demos hitch with eccentric return following flexion 05/18/24: 80% flex, 50% ext, 75 % B LF, 75% rotation PT-OP-L Special Tests Start: 04/21/24 09:19 Freq: Status: Active Protocol: Document 04/21/24 11:37 NM (Rec: 04/21/24 12:27 NM [id number]) Special Tests Lumbar Spine Special Tests Distraction Test Results + Yo/Quadrant Test Results + Other Special Tests Special Tests Drop test: + (pain with slight heel raise and quick drop onto heels); reproduces familiar pain PT-OP-M Strength Start: 04/21/24 09:19 Freq: Status: Active Protocol: Document 06/28/24 11:31 NM (Rec: 06/28/24 12:25 NM [id number]) Trunk Strength Trunk Manual Muscle Testing Flexion 4 Good Extension 4 Good Rotation Left 4 Good Rotation Right 4 Good Lateral Flexion Left 4 Good Lateral Flexion Right 4 Good Comments IE: pain with resisted ext 05/18/24: 4-/5 06/28/24: 4/5 for all MMT; pain free but challenging to stabilize trunk PT-OP-Q Treatments Start: 04/21/24 09:19 Freq: Status: Active Protocol: Document 06/28/24 11:31 NM (Rec: 06/28/24 12:25 NM [id number]) Therapeutic Exercises Sidelying Exercises QL stretch Side bilateral Equipment Used ~ side plank on elbows, knees bent Reps/Minutes 30 ea Comments cued alignment Standing Exercises deadlift Standing Exercise Name foam roller cues Side bilateral Equipment Used 1. BLE extended at knees Reps/Minutes 10 Comments prn cues for rhomboid facilitation to keep lumbar ext sit to stand with band Side bilateral Resistance level 4 band at thighs Reps/Minutes 10 Comments self tactile cues hip hinge Other Exercises carries Other Exercise Name unilateral carry Resistance 8# db Reps/Minutes 2x25 ft Comments cued core bracing, no trunk rotation for exercise Manual Therapy Treatment Consent Patient gave verbal consent for manual Yes treatment Soft Tissue Mobilization LE's Body Location glutes Mobilization Type Cross-Friction,Rolling Intensity/Depth Moderate Body Position Sidelying lumbar spine Body Location B paraspinals, QL Mobilization Type Cross-Friction,Rolling, Sustained Pressure Intensity/Depth Moderate Body Position Sidelying Comments Deep QL mobilization, prior to stretching, provides pt relief Performed with sidelying lateral flexion and then posterior pelvic tilt facilitation Joint Mobilizations L hip Direction PA Grade III Body Position Sidelying Reps/Duration 2x30 Comments with hip extension MWM Taping lower thoracic to SI Treatment Focus for tacitle cues for posture and for pain Type of Tape Kinesiotape Skin Inspection WNL Comments I strips along paraspinals distal to proximal, horizontal across spine for pain. performed in sitting today skin assessed prior and after taping; no redness from past tape prior to re-taping. Educated to remove in 3-5 days unless skin irritation or rash occurs, then remove sb PT-OP-T Assessment and Plan Start: 04/21/24 09:19 Freq: Status: Active Protocol: Document 06/28/24 11:31 NM (Rec: 06/28/24 12:25 NM [id number]) Physical Therapy Assessment Goals Four Impairment compliance with HEP Molding Cutter Goal (LTG) Pt will report compliance with HEP at least 3x/wk in order to maximize progression with PT and transition to maintenance program 05/18/24: performing HEP 3x/wk LTG Duration 10 weeks MET Three Impairment pain with transfers Short Term Goal (STG) Pt will be able to perform at least 8/10 STS without compensation or increase in low back pain in order to demonstrate increased BLE strength and symptom management during transfers 05/18/24: 10 STS, no increase in back pain but still present 06/14/24 Mehnaz reports decreased pain with sit to stand post sit to stand training and deadlift training . 06/28/24: no back pain during STS from standard ht (on plinth) with band; prn cues for hip hinge STG Duration MET [facility] Goal (LTG) Pt will be able to perform at least 5x STS at age-related norms (12.6 seconds) if appropriate in order to demonstrate increased BLE strength and symptom management during transfers 06/28/24: 13.2 sec, demos difficulty with hip hinge- PROGRESSING LTG Duration 8 weeks Two Impairment trunk and BLE strength impaired d/t pain and weakness Molding Cutter Goal (LTG) Pt will increase trunk and BLE strength globally to at least 4/5 MMT without increase in back pain in order to demonstrate improved strength for gait and transfers 05/18/24: 4-/5 for all 06/28/24: 4/5 for all, pain free LTG Duration 10 weeks MET 06/28/24 One Impairment BENJAMIN 58% impairment of ADLs/ IADLs and mobility Short Term Goal (STG) Pt will improve standing and ambulation tolerance to > 10 minutes with back pain <6/10 in order to demonstrate improved symptom management and activity tolerance. 05/18/24: pt reports >6/10 pain with standing, unable to achieve 10 min without support STG Duration 6 weeks Molding Cutter Goal (LTG) Pt will report that she is impaired <30% with ADLs/IADLs due to back pain in order to demonstrate improved symptom management 06/28/24: 44/100 (44% impairment), 1 MCID improvement LTG Duration 8 weeks- GOAL UPDATED Assessment Summary Assessment Pt responds well to progression in therapeutic exercise today. Good feedback for sidelying QL stretch, followed with unilateral carries to improve stability along kinetic chain. Cueing needed for posture and form, but reports less pain in low back today while performing carries compared to previous sessions. Initiated deadlift with knees extended for posterior chain lengthening then lumbar extension strengthening. Cues required for form and to maintain hinge along with neutral spine as pt has tendency for complete trunk flexion. Compared to previous sessions, pt does not have pain with full trunk flexion and demos improvements in overall trunk ROM. Trialed hip extension mobilizations to facilitate improved extension during gait and along with facilitation of posterior pelvic tilt. Physical Therapy Plan Frequency and Duration Frequency of Treatment 1-2x/wk Duration of treatment (weeks) 8 Plan of Care Start Date 06/28/24 Plan of Care End Date 08/26/24 Therapeutic Interventions Therapeutic Interventions Balance Training,Gait Training ,Home Exercise Program,Joint Mobilizations,Manual Therapy, Neuromuscular Re-education, Orthotic/Prosthetic Management ,Patient/Caregiver Education, Self-Care/Home Management, Sensory Integration,Soft Tissue Mobilization,Taping, Therapeutic Activities, Therapeutic Exercises Modalities Cold Pack/Ice Massage,Electric Stimulation,Hot Packs, Ultrasound Other Therapeutic Interventions No lumbar spine mobilization d /t instability on past imaging (retrolisthesis) Pelvic realignment and MET as needed Other Referrals/Consults Referrals/Consults Recommended May benefit from advanced imaging of lumbar spine due to pain Next Visit Focus/Plan Next Note Type Treatment Note Next Visit Plan Cont deadlift- add band. Cont leg press vs STS w/o weight and w/ weight, continue with hip strengthening especially in standing. continue, but perform HS stretch review pre deadlift/ deadlift mechanics and add weight if tolerated. back strengthening: carries, lifting mechanics. seated ext vs quadruped Manual: STM to low back as needed only
--- NOTE | 2024-06-28 15:58 | PT.OPPOC ---
Physical, Occupational & Speech Therapy At [facility] Current Diagnoses Stiffness of right hip, not elsewhere classified (06/28/24) Stiffness of left hip, not elsewhere classified (06/28/24) Radiculopathy, site unspecified (06/28/24) Other lack of coordination (06/28/24) Weakness (06/28/24) Visit Care Team Role Provider Type Ivan Gracia MD Attending Provider Physician Family Provider Primary Care Provider Referring Provider Specialty: Family Practice Address: [address] [place] [address] [place], [address] Email: [email or web address] Plan Of Care PT-OP-B Current Condition Start: 04/21/24 09:19 Freq: Status: Active Protocol: Document 04/21/24 11:37 NM (Rec: 04/21/24 12:27 NM [id number]) Current Condition History of Current Condition Current Complaints pain, weakness, poor balance History of Current Condition Pt presents with low back pain . Pain is chronic for 7-8 months. She states that after working in the garden, it started to hurt so much across a big swatch. States that she had trouble with bending. Went to [place] for 2 months to help with dying brother; had difficulty with walking, bending, lifting, twisting. Had to use a walker to help with ambulation. She went to a chiro, which helped. Was having difficulty lying flat. No specific LEANNE. However, has had chronic pain. No longer have Sciatic pain. She reports not the leg. Pt reports was going to a chiro 2x a day for 3x/wk. Received manipulations and had pressure points worked on, which helped. She reports that she also gets a midback-L shoulder blade that spreads and goes away. Pt reports bad low back spasms, sleeping was interrupted. Impairments with walking, sleeping better because pills, bending, lifting, twisting, bed mobility, lying flat until in place. Reports that balance is not at good as used to be; reports that she removed grass to help; states not picking up feet. Reports no changes in bowel, bladder. HAs not had an MRI. Has been drinking wine but stopped due to pill intake Prior Treatments and Tests Lumbar spine X-ray 02/2023- Impression: Limited range of motion and multilevel lumbar spine spondylosis, most notably L4-L5 and L5-S1. Current Functional Impairments (Reported) Functional Limitations- ADL's pain with donning/doffing socks, donning/doffing pants pain with all household ADLs does not perform due to pain Functional Limitations- Mobility/Gait sitting- w/ heating pad 20 min standing and ambulating- few minutes STS Transfers- catching with extension PT-OP-T Assessment and Plan Start: 04/21/24 09:19 Freq: Status: Active Protocol: Document 06/28/24 11:31 NM (Rec: 06/28/24 12:25 NM [id number]) Physical Therapy Assessment Goals Four Impairment compliance with HEP [facility] Goal (LTG) Pt will report compliance with HEP at least 3x/wk in order to maximize progression with PT and transition to maintenance program 05/18/24: performing HEP 3x/wk LTG Duration 10 weeks MET Three Impairment pain with transfers Short Term Goal (STG) Pt will be able to perform at least 8/10 STS without compensation or increase in low back pain in order to demonstrate increased BLE strength and symptom management during transfers 05/18/24: 10 STS, no increase in back pain but still present 06/14/24 Mehnaz reports decreased pain with sit to stand post sit to stand training and deadlift training . 06/28/24: no back pain during STS from standard ht (on plinth) with band; prn cues for hip hinge STG Duration MET [employer] Supervisor Goal (LTG) Pt will be able to perform at least 5x STS at age-related norms (12.6 seconds) if appropriate in order to demonstrate increased BLE strength and symptom management during transfers 06/28/24: 13.2 sec, demos difficulty with hip hinge- PROGRESSING LTG Duration 8 weeks Two Impairment trunk and BLE strength impaired d/t pain and weakness [employer] Supervisor Goal (LTG) Pt will increase trunk and BLE strength globally to at least 4/5 MMT without increase in back pain in order to demonstrate improved strength for gait and transfers 05/18/24: 4-/5 for all 06/28/24: 4/5 for all, pain free LTG Duration 10 weeks MET 06/28/24 One Impairment BENJAMIN 58% impairment of ADLs/ IADLs and mobility Short Term Goal (STG) Pt will improve standing and ambulation tolerance to > 10 minutes with back pain <6/10 in order to demonstrate improved symptom management and activity tolerance. 05/18/24: pt reports >6/10 pain with standing, unable to achieve 10 min without support STG Duration 6 weeks [employer] Supervisor Goal (LTG) Pt will report that she is impaired <30% with ADLs/IADLs due to back pain in order to demonstrate improved symptom management 06/28/24: 44/100 (44% impairment), 1 MCID improvement LTG Duration 8 weeks- GOAL UPDATED Assessment Summary Assessment Pt has been seen x13 visits following evaluation in April 2024 for back pain. Pt is progressing well toward goals, meeting several. Pt demos improvements in trunk ROM and strength; however, she continues to have difficulty with progressing resistance during functional strengthening tasks including squats, deadlifts, and carries . Pt reports improvements in ability to perform ADLs/IADLs since initial evaluation; however, she continues to be limited due to activity tolerance and pain. Pt would continue to benefit from skilled PT for progressive strengthening and body mechanics training in order to decrease pain and to improve activity tolerance. Physical Therapy Plan Frequency and Duration Frequency of Treatment 1-2x/wk Duration of treatment (weeks) 8 Plan of Care Start Date 06/28/24 Plan of Care End Date 08/26/24 Therapeutic Interventions Therapeutic Interventions Balance Training,Gait Training ,Home Exercise Program,Joint Mobilizations,Manual Therapy, Neuromuscular Re-education, Orthotic/Prosthetic Management ,Patient/Caregiver Education, Self-Care/Home Management, Sensory Integration,Soft Tissue Mobilization,Taping, Therapeutic Activities, Therapeutic Exercises Modalities Cold Pack/Ice Massage,Electric Stimulation,Hot Packs, Ultrasound Other Therapeutic Interventions No lumbar spine mobilization d /t instability on past imaging (retrolisthesis) Pelvic realignment and MET as needed Other Referrals/Consults Referrals/Consults Recommended May benefit from advanced imaging of lumbar spine due to pain Next Visit Focus/Plan Next Note Type Treatment Note Next Visit Plan Cont deadlift- add band. Cont leg press vs STS w/o weight and w/ weight, continue with hip strengthening especially in standing. continue, but perform HS stretch review pre deadlift/ deadlift mechanics and add weight if tolerated. back strengthening: carries, lifting mechanics. seated ext vs quadruped Manual: STM to low back as needed only Plan of Care Dates Plan of Care Start Date 06/28/24 Plan of Care End Date 08/26/24 Electronically Signed by: Michell Dawkins, PT 06/28/24 [id number] If you are in agreement with this Plan of Care, please return a signed and dated copy. I have reviewed this Plan of Care and certify that the skilled therapy services above are required to meet the patient?s needs. Physician Signature Date Printed Name and Credentials Clinical Instructor Signature Printed Name and Credentials
--- NOTE | 2024-07-01 12:20 | PT.OTN ---
Current Diagnoses Stiffness of right hip, not elsewhere classified (07/01/24) Stiffness of left hip, not elsewhere classified (07/01/24) Radiculopathy, site unspecified (07/01/24) Other lack of coordination (07/01/24) Weakness (07/01/24) Physical Therapy Treatment Note PT-OP-A Visit Information Start: 04/21/24 09:19 Freq: Status: Active Protocol: Document 07/01/24 11:37 NM (Rec: 07/01/24 12:20 NM [id number]) Out-Patient Physical Therapy Visit Information Visit Information Visit Type Treatment Note Visit Start Time 11:37 Visit Stop Time 12:18 Visit Number 15 Evaluation Information Evaluation Date 04/21/24 Precautions Precautions Hx retrolisthesis PT-OP-B Current Condition Start: 04/21/24 09:19 Freq: Status: Active Protocol: Document 04/21/24 11:37 NM (Rec: 04/21/24 12:27 NM [id number]) Current Condition History of Current Condition Current Complaints pain, weakness, poor balance History of Current Condition Pt presents with low back pain . Pain is chronic for 7-8 months. She states that after working in the garden, it started to hurt so much across a big swatch. States that she had trouble with bending. Went to [place] for 2 months to help with dying brother; had difficulty with walking, bending, lifting, twisting. Had to use a walker to help with ambulation. She went to a chiro, which helped. Was having difficulty lying flat. No specific LEANNE. However, has had chronic pain. No longer have Sciatic pain. She reports not the leg. Pt reports was going to a chiro 2x a day for 3x/wk. Received manipulations and had pressure points worked on, which helped. She reports that she also gets a midback-L shoulder blade that spreads and goes away. Pt reports bad low back spasms, sleeping was interrupted. Impairments with walking, sleeping better because pills, bending, lifting, twisting, bed mobility, lying flat until in place. Reports that balance is not at good as used to be; reports that she removed grass to help; states not picking up feet. Reports no changes in bowel, bladder. HAs not had an MRI. Has been drinking wine but stopped due to pill intake Prior Treatments and Tests Lumbar spine X-ray 02/2023- Impression: Limited range of motion and multilevel lumbar spine spondylosis, most notably L4-L5 and L5-S1. Current Functional Impairments (Reported) Functional Limitations- ADL's pain with donning/doffing socks, donning/doffing pants pain with all household ADLs does not perform due to pain Functional Limitations- Mobility/Gait sitting- w/ heating pad 20 min standing and ambulating- few minutes STS Transfers- catching with extension PT-OP-C Subjective Start: 04/21/24 09:19 Freq: Status: Active Protocol: Document 07/01/24 11:37 NM (Rec: 07/01/24 12:20 NM [id number]) OP-PT Subjective Patient Comments Patient Comments Pt reports that she did well after last session. Taping still helps the most. Wants to try not using tape over weekend. PT-OP-E Functional Tests Start: 04/21/24 09:19 Freq: Status: Active Protocol: Document 04/21/24 11:37 NM (Rec: 04/21/24 12:27 NM [id number]) Functional Tests Five Times Sit to Stand Test Score unable to complete at this time d/t pain PT-OP-F Manual Assessment Start: 04/21/24 09:19 Freq: Status: Active Protocol: Document 04/21/24 11:37 NM (Rec: 04/21/24 12:27 NM [id number]) Manual Assessments Soft Tissue Assessment Soft Tissue Mobility Assessment Increased restrictions of thoracic and lumbar paraspinals, lat, QL, hip flexors Joint Mobility Assessment Joint Mobility Assessment Hypermobility of lumbar spinous processes with PA springing in sitting and prone , hypomobility of hips B R>L PT-OP-G Mobility & Gait Start: 04/21/24 09:19 Freq: Status: Active Protocol: Document 04/21/24 11:37 NM (Rec: 04/21/24 12:27 NM [id number]) OP Mobility Evaluation Transfers Sit to Stand Requires BUE to push up from chair, must pause in coming to stand d/t pain OP Gait Assessment Gait Gait Assistance Required: Standby Assistance Distance (Feet) 150 Gait Deviations General Gait Pattern Antalgic,Flexed Trunk,Narrow Based Gait PT-OP-H Neuro Start: 04/21/24 09:19 Freq: Status: Active Protocol: Document 04/21/24 11:37 NM (Rec: 04/21/24 12:27 NM [id number]) Deep Tendon Reflex & Clonus Assessment Deep Tendon Reflex Bilateral Patellar Deep Tendon Reflex 1+ Diminished PT-OP-J Posture/Palpation/Skin Start: 04/21/24 09:19 Freq: Status: Active Protocol: Document 04/21/24 11:37 NM (Rec: 04/21/24 12:27 NM [id number]) Posture Evaluation Position Standing Head/C-Spine Posture Forward Head L-Spine Posture Decreased Lordosis Shoulder Posture (L) Rounded,(R) Rounded Pelvis Posture Posterior Tilted Hip Posture (L) Externally Rotated,(R) Externally Rotated Knee Posture (L) Genu Valgus,(R) Genu Valgus Comments Posture Comments Demos tendency for flexed trunk position instead of extension, even posturally when sitting Palpation Assessment Location lumbar spine Palpation Findings Soft Tissue Tightness,Spasm, Muscle Guarding Palpation Details Tender along lower lumbar spinous and transverse processes, L PSIS and L SIJ Tightness and tenderness along lumbar paraspinals L>R PT-OP-K Range of Motion Start: 04/21/24 09:19 Freq: Status: Active Protocol: Document 06/28/24 11:31 NM (Rec: 06/28/24 12:25 NM [id number]) Lumbar Spine Range of Motion Lumbar Spine Active Percentage Flexion 90 Extension 50 Rotation Left 100 Rotation Right 75 Lateral Flexion Left 75 Lateral Flexion Right 100 Comments IE: pain with all movements ashli ext; demos hitch with eccentric return following flexion 05/18/24: 80% flex, 50% ext, 75 % B LF, 75% rotation PT-OP-L Special Tests Start: 04/21/24 09:19 Freq: Status: Active Protocol: Document 04/21/24 11:37 NM (Rec: 04/21/24 12:27 NM [id number]) Special Tests Lumbar Spine Special Tests Distraction Test Results + Yo/Quadrant Test Results + Other Special Tests Special Tests Drop test: + (pain with slight heel raise and quick drop onto heels); reproduces familiar pain PT-OP-M Strength Start: 04/21/24 09:19 Freq: Status: Active Protocol: Document 06/28/24 11:31 NM (Rec: 06/28/24 12:25 NM [id number]) Trunk Strength Trunk Manual Muscle Testing Flexion 4 Good Extension 4 Good Rotation Left 4 Good Rotation Right 4 Good Lateral Flexion Left 4 Good Lateral Flexion Right 4 Good Comments IE: pain with resisted ext 05/18/24: 4-/5 06/28/24: 4/5 for all MMT; pain free but challenging to stabilize trunk PT-OP-Q Treatments Start: 04/21/24 09:19 Freq: Status: Active Protocol: Document 07/01/24 11:37 NM (Rec: 07/01/24 12:20 NM [id number]) Therapeutic Exercises Supine Exercises hamstring stretch Side bilateral Equipment Used with strap Reps/Minutes 60 ea Comments cued set up oc stretch Side bilateral Reps/Minutes 60 ea piriformis stretch Side bilateral Reps/Minutes 60 ea Prone Exercises extension exercises Prone Exercise Name 1. BUE alt, 2. hip ext, 3. opp arm/leg Side bilateral Resistance cued to limit trunk rot Equipment Used 2 pillows under hips, head positioned on towel roll Reps/Minutes 1. 10 ea alt, 2. 10 ea non-alt , 3. 10 ea non-alt Comments pain free; tape not removed yet; edu to trial over wkend Standing Exercises modified plank Side bilateral Equipment Used elevated plinth Reps/Minutes 2x30 Comments pain free deadlift Standing Exercise Name 1. band under feet, 2. deadlift w/ dowel and band Side bilateral Resistance level 1 band under feet Reps/Minutes 1. 10, 2. 10, 5 Comments cued form, full trunk ext; reports feels in low back Manual Therapy Treatment Consent Patient gave verbal consent for manual Yes treatment Soft Tissue Mobilization lumbar spine Body Location B paraspinals, QL Mobilization Type Cross-Friction,Rolling, Sustained Pressure Intensity/Depth Moderate Body Position Prone Comments Positioned with 2 pillows under hips. Deep QL mobilization, prior to stretching, provides pt relief PT-OP-T Assessment and Plan Start: 04/21/24 09:19 Freq: Status: Active Protocol: Document 07/01/24 11:37 NM (Rec: 07/01/24 12:20 NM [id number]) Physical Therapy Assessment Goals Four Impairment compliance with HEP Consultant Nurse Goal (LTG) Pt will report compliance with HEP at least 3x/wk in order to maximize progression with PT and transition to maintenance program 05/18/24: performing HEP 3x/wk LTG Duration 10 weeks MET Three Impairment pain with transfers Short Term Goal (STG) Pt will be able to perform at least 8/10 STS without compensation or increase in low back pain in order to demonstrate increased BLE strength and symptom management during transfers 05/18/24: 10 STS, no increase in back pain but still present 06/14/24 Mehnaz reports decreased pain with sit to stand post sit to stand training and deadlift training . 06/28/24: no back pain during STS from standard ht (on plinth) with band; prn cues for hip hinge STG Duration MET Consultant Nurse Goal (LTG) Pt will be able to perform at least 5x STS at age-related norms (12.6 seconds) if appropriate in order to demonstrate increased BLE strength and symptom management during transfers 06/28/24: 13.2 sec, demos difficulty with hip hinge- PROGRESSING LTG Duration 8 weeks Two Impairment trunk and BLE strength impaired d/t pain and weakness Residential Goal (LTG) Pt will increase trunk and BLE strength globally to at least 4/5 MMT without increase in back pain in order to demonstrate improved strength for gait and transfers 05/18/24: 4-/5 for all 06/28/24: 4/5 for all, pain free LTG Duration 10 weeks MET 06/28/24 One Impairment BENJAMIN 58% impairment of ADLs/ IADLs and mobility Short Term Goal (STG) Pt will improve standing and ambulation tolerance to > 10 minutes with back pain <6/10 in order to demonstrate improved symptom management and activity tolerance. 05/18/24: pt reports >6/10 pain with standing, unable to achieve 10 min without support STG Duration 6 weeks Residential Goal (LTG) Pt will report that she is impaired <30% with ADLs/IADLs due to back pain in order to demonstrate improved symptom management 06/28/24: 44/100 (44% impairment), 1 MCID improvement LTG Duration 8 weeks- GOAL UPDATED Assessment Summary Assessment No pain reported at end of session. Trialed extension based exercises in prone to promote lumbar stabilization. Cueing needed to limit trunk rotation compensations due to weakness. Reports symptom improvement with reps, no pain . Pt does report feeling it in her low back following deadlifts with dowel and band; however, denies pain. Initiated modified planks. Pt would continue to benefit from PT for continued strengthening to decrease pain . Physical Therapy Plan Frequency and Duration Frequency of Treatment 1-2x/wk Duration of treatment (weeks) 8 Plan of Care Start Date 06/28/24 Plan of Care End Date 08/26/24 Therapeutic Interventions Therapeutic Interventions Balance Training,Gait Training ,Home Exercise Program,Joint Mobilizations,Manual Therapy, Neuromuscular Re-education, Orthotic/Prosthetic Management ,Patient/Caregiver Education, Self-Care/Home Management, Sensory Integration,Soft Tissue Mobilization,Taping, Therapeutic Activities, Therapeutic Exercises Modalities Cold Pack/Ice Massage,Electric Stimulation,Hot Packs, Ultrasound Other Therapeutic Interventions No lumbar spine mobilization d /t instability on past imaging (retrolisthesis) Pelvic realignment and MET as needed Other Referrals/Consults Referrals/Consults Recommended May benefit from advanced imaging of lumbar spine due to pain Next Visit Focus/Plan Next Note Type Treatment Note Next Visit Plan Assess octavio to prone exercises. Assess octavio to deadlift- add band. Trial mod side plank. Cont leg press vs STS w/o weight and w/ weight, continue with hip strengthening especially in standing. continue, but perform HS stretch review pre deadlift/ deadlift mechanics and add weight if tolerated. back strengthening: carries, lifting mechanics. seated ext vs quadruped Manual: STM to low back as needed only
--- NOTE | 2024-07-04 12:18 | PT.OTN ---
Current Diagnoses Stiffness of right hip, not elsewhere classified (07/04/24) Stiffness of left hip, not elsewhere classified (07/04/24) Radiculopathy, site unspecified (07/04/24) Other lack of coordination (07/04/24) Weakness (07/04/24) Physical Therapy Treatment Note PT-OP-A Visit Information Start: 04/21/24 09:19 Freq: Status: Active Protocol: Document 07/04/24 11:31 NM (Rec: 07/04/24 12:18 NM [id number]) Out-Patient Physical Therapy Visit Information Visit Information Visit Type Treatment Note Visit Start Time 11:32 Visit Stop Time 12:12 Visit Number 16 (3/ PN) Evaluation Information Evaluation Date 04/21/24 Precautions Precautions Hx retrolisthesis PT-OP-B Current Condition Start: 04/21/24 09:19 Freq: Status: Active Protocol: Document 04/21/24 11:37 NM (Rec: 04/21/24 12:27 NM [id number]) Current Condition History of Current Condition Current Complaints pain, weakness, poor balance History of Current Condition Pt presents with low back pain . Pain is chronic for 7-8 months. She states that after working in the garden, it started to hurt so much across a big swatch. States that she had trouble with bending. Went to [place] for 2 months to help with dying brother; had difficulty with walking, bending, lifting, twisting. Had to use a walker to help with ambulation. She went to a chiro, which helped. Was having difficulty lying flat. No specific LEANNE. However, has had chronic pain. No longer have Sciatic pain. She reports not the leg. Pt reports was going to a chiro 2x a day for 3x/wk. Received manipulations and had pressure points worked on, which helped. She reports that she also gets a midback-L shoulder blade that spreads and goes away. Pt reports bad low back spasms, sleeping was interrupted. Impairments with walking, sleeping better because pills, bending, lifting, twisting, bed mobility, lying flat until in place. Reports that balance is not at good as used to be; reports that she removed grass to help; states not picking up feet. Reports no changes in bowel, bladder. HAs not had an MRI. Has been drinking wine but stopped due to pill intake Prior Treatments and Tests Lumbar spine X-ray 02/2023- Impression: Limited range of motion and multilevel lumbar spine spondylosis, most notably L4-L5 and L5-S1. Current Functional Impairments (Reported) Functional Limitations- ADL's pain with donning/doffing socks, donning/doffing pants pain with all household ADLs does not perform due to pain Functional Limitations- Mobility/Gait sitting- w/ heating pad 20 min standing and ambulating- few minutes STS Transfers- catching with extension PT-OP-C Subjective Start: 04/21/24 09:19 Freq: Status: Active Protocol: Document 07/04/24 11:31 NM (Rec: 07/04/24 12:18 NM [id number]) OP-PT Subjective Patient Comments Patient Comments Pt presents wihout tape today. States that everything is working, states less pain even with shopping. Trialed extension exercises, which felt good. Brought her HEP. Feels more optimistic about her future yard work. PT-OP-E Functional Tests Start: 04/21/24 09:19 Freq: Status: Active Protocol: Document 04/21/24 11:37 NM (Rec: 04/21/24 12:27 NM [id number]) Functional Tests Five Times Sit to Stand Test Score unable to complete at this time d/t pain PT-OP-F Manual Assessment Start: 04/21/24 09:19 Freq: Status: Active Protocol: Document 04/21/24 11:37 NM (Rec: 04/21/24 12:27 NM [id number]) Manual Assessments Soft Tissue Assessment Soft Tissue Mobility Assessment Increased restrictions of thoracic and lumbar paraspinals, lat, QL, hip flexors Joint Mobility Assessment Joint Mobility Assessment Hypermobility of lumbar spinous processes with PA springing in sitting and prone , hypomobility of hips B R>L PT-OP-G Mobility & Gait Start: 04/21/24 09:19 Freq: Status: Active Protocol: Document 04/21/24 11:37 NM (Rec: 04/21/24 12:27 NM [id number]) OP Mobility Evaluation Transfers Sit to Stand Requires BUE to push up from chair, must pause in coming to stand d/t pain OP Gait Assessment Gait Gait Assistance Required: Standby Assistance Distance (Feet) 150 Gait Deviations General Gait Pattern Antalgic,Flexed Trunk,Narrow Based Gait PT-OP-H Neuro Start: 04/21/24 09:19 Freq: Status: Active Protocol: Document 04/21/24 11:37 NM (Rec: 04/21/24 12:27 NM [id number]) Deep Tendon Reflex & Clonus Assessment Deep Tendon Reflex Bilateral Patellar Deep Tendon Reflex 1+ Diminished PT-OP-J Posture/Palpation/Skin Start: 04/21/24 09:19 Freq: Status: Active Protocol: Document 04/21/24 11:37 NM (Rec: 04/21/24 12:27 NM [id number]) Posture Evaluation Position Standing Head/C-Spine Posture Forward Head L-Spine Posture Decreased Lordosis Shoulder Posture (L) Rounded,(R) Rounded Pelvis Posture Posterior Tilted Hip Posture (L) Externally Rotated,(R) Externally Rotated Knee Posture (L) Genu Valgus,(R) Genu Valgus Comments Posture Comments Demos tendency for flexed trunk position instead of extension, even posturally when sitting Palpation Assessment Location lumbar spine Palpation Findings Soft Tissue Tightness,Spasm, Muscle Guarding Palpation Details Tender along lower lumbar spinous and transverse processes, L PSIS and L SIJ Tightness and tenderness along lumbar paraspinals L>R PT-OP-K Range of Motion Start: 04/21/24 09:19 Freq: Status: Active Protocol: Document 06/28/24 11:31 NM (Rec: 06/28/24 12:25 NM [id number]) Lumbar Spine Range of Motion Lumbar Spine Active Percentage Flexion 90 Extension 50 Rotation Left 100 Rotation Right 75 Lateral Flexion Left 75 Lateral Flexion Right 100 Comments IE: pain with all movements ashli ext; demos hitch with eccentric return following flexion 05/18/24: 80% flex, 50% ext, 75 % B LF, 75% rotation PT-OP-L Special Tests Start: 04/21/24 09:19 Freq: Status: Active Protocol: Document 04/21/24 11:37 NM (Rec: 04/21/24 12:27 NM [id number]) Special Tests Lumbar Spine Special Tests Distraction Test Results + Yo/Quadrant Test Results + Other Special Tests Special Tests Drop test: + (pain with slight heel raise and quick drop onto heels); reproduces familiar pain PT-OP-M Strength Start: 04/21/24 09:19 Freq: Status: Active Protocol: Document 06/28/24 11:31 NM (Rec: 06/28/24 12:25 NM [id number]) Trunk Strength Trunk Manual Muscle Testing Flexion 4 Good Extension 4 Good Rotation Left 4 Good Rotation Right 4 Good Lateral Flexion Left 4 Good Lateral Flexion Right 4 Good Comments IE: pain with resisted ext 05/18/24: 4-/5 06/28/24: 4/5 for all MMT; pain free but challenging to stabilize trunk PT-OP-Q Treatments Start: 04/21/24 09:19 Freq: Status: Active Protocol: Document 07/04/24 11:31 NM (Rec: 07/04/24 12:18 NM [id number]) Therapeutic Exercises Supine Exercises oc stretch Side bilateral Reps/Minutes 60 ea piriformis stretch Supine Exercise Name figure 4 stretch Side bilateral Reps/Minutes 60 ea Prone Exercises extension exercises Prone Exercise Name added to HEP last session ( verbal review only) Sidelying Exercises sideplank Sidelying Exercise Name modified on elbow w/ knees bent- lifts only (no hold) Side bilateral Reps/Minutes 5 - L much more challenging Comments pt reports surprised can do; pain free QL stretch Side bilateral Equipment Used ~ side plank on elbows, knees bent Reps/Minutes 30 ea Comments cued alignment reverse clam Side bilateral Resistance level 2 band Reps/Minutes 10 Comments updated level 2 band clam Side bilateral Resistance level 2 band Reps/Minutes 10 Comments updated HEP to add level 2 band Standing Exercises rows Side bilateral Resistance level 3 band Reps/Minutes 2x15 Comments cued form, core brace, foot position deadlift Standing Exercise Name band under feet Side bilateral Resistance level 1 band under feet Reps/Minutes 2x8 Comments mod cues form, full trunk ext, hip hinge lat pull down Standing Exercise Name HEP review Side bilateral Resistance level 3 band Reps/Minutes 2x15 Comments progressed band HEP; cued for staggered stance for stab PT-OP-T Assessment and Plan Start: 04/21/24 09:19 Freq: Status: Active Protocol: Document 07/04/24 11:31 NM (Rec: 07/04/24 12:18 NM [id number]) Physical Therapy Assessment Goals Four Impairment compliance with HEP Supplier Engineer Goal (LTG) Pt will report compliance with HEP at least 3x/wk in order to maximize progression with PT and transition to maintenance program 05/18/24: performing HEP 3x/wk LTG Duration 10 weeks MET Three Impairment pain with transfers Short Term Goal (STG) Pt will be able to perform at least 8/10 STS without compensation or increase in low back pain in order to demonstrate increased BLE strength and symptom management during transfers 05/18/24: 10 STS, no increase in back pain but still present 06/14/24 Mehnaz reports decreased pain with sit to stand post sit to stand training and deadlift training . 06/28/24: no back pain during STS from standard ht (on plinth) with band; prn cues for hip hinge STG Duration MET Supplier Engineer Goal (LTG) Pt will be able to perform at least 5x STS at age-related norms (12.6 seconds) if appropriate in order to demonstrate increased BLE strength and symptom management during transfers 06/28/24: 13.2 sec, demos difficulty with hip hinge- PROGRESSING LTG Duration 8 weeks Two Impairment trunk and BLE strength impaired d/t pain and weakness Group Home Goal (LTG) Pt will increase trunk and BLE strength globally to at least 4/5 MMT without increase in back pain in order to demonstrate improved strength for gait and transfers 05/18/24: 4-/5 for all 06/28/24: 4/5 for all, pain free LTG Duration 10 weeks MET 06/28/24 One Impairment BENJAMIN 58% impairment of ADLs/ IADLs and mobility Short Term Goal (STG) Pt will improve standing and ambulation tolerance to > 10 minutes with back pain <6/10 in order to demonstrate improved symptom management and activity tolerance. 05/18/24: pt reports >6/10 pain with standing, unable to achieve 10 min without support STG Duration 6 weeks Supplier Engineer Goal (LTG) Pt will report that she is impaired <30% with ADLs/IADLs due to back pain in order to demonstrate improved symptom management 06/28/24: 44/100 (44% impairment), 1 MCID improvement LTG Duration 8 weeks- GOAL UPDATED Assessment Summary Assessment Pt has no pain at end of session. Good tolerance for extension based exercises over weekend; educated to continue as part of HEP. Trialed oblique/QL active strengthening; L side much weaker than R side which likely influences overall pain management and postural stability during ADLs. Continued with posterior chain strengthening with deadlift and lats/rows for further postural stabilization. Moderate cueing still needed for deadlift for form especially to reduce knee valgus, promote hip hinge vs knee flexion. Restricted hip flexion ROM limits hip hinge. Pt would continue to benefit from skilled PT for progressive strengthening to promote postural re-education and stability during ADLs and gait, in addition to pain management. At this time, pt not fully independent with self management. Physical Therapy Plan Frequency and Duration Frequency of Treatment 1-2x/wk Duration of treatment (weeks) 8 Plan of Care Start Date 06/28/24 Plan of Care End Date 08/26/24 Therapeutic Interventions Therapeutic Interventions Balance Training,Gait Training ,Home Exercise Program,Joint Mobilizations,Manual Therapy, Neuromuscular Re-education, Orthotic/Prosthetic Management ,Patient/Caregiver Education, Self-Care/Home Management, Sensory Integration,Soft Tissue Mobilization,Taping, Therapeutic Activities, Therapeutic Exercises Modalities Cold Pack/Ice Massage,Electric Stimulation,Hot Packs, Ultrasound Other Therapeutic Interventions No lumbar spine mobilization d /t instability on past imaging (retrolisthesis) Pelvic realignment and MET as needed Other Referrals/Consults Referrals/Consults Recommended May benefit from advanced imaging of lumbar spine due to pain Next Visit Focus/Plan Next Note Type Treatment Note Next Visit Plan Trial and Add standing hip strength to HEP if octavio. Update HEP. Tape only if needed. Deadlift w/ weight as able, leg press. back strengthening: carries, lifting mechanics. seated ext vs quadruped Manual: STM to low back as needed only
--- NOTE | 2024-07-11 13:48 | PT.OTN ---
Current Diagnoses Stiffness of right hip, not elsewhere classified (07/11/24) Stiffness of left hip, not elsewhere classified (07/11/24) Radiculopathy, site unspecified (07/11/24) Other lack of coordination (07/11/24) Weakness (07/11/24) Physical Therapy Treatment Note PT-OP-A Visit Information Start: 04/21/24 09:19 Freq: Status: Active Protocol: Document 07/11/24 13:01 NM (Rec: 07/11/24 13:48 NM [id number]) Out-Patient Physical Therapy Visit Information Visit Information Visit Type Treatment Note Visit Start Time 13:03 Visit Stop Time 13:45 Visit Number 17 (09/22 PN) Evaluation Information Evaluation Date 04/21/24 Precautions Precautions Hx retrolisthesis PT-OP-B Current Condition Start: 04/21/24 09:19 Freq: Status: Active Protocol: Document 04/21/24 11:37 NM (Rec: 04/21/24 12:27 NM [id number]) Current Condition History of Current Condition Current Complaints pain, weakness, poor balance History of Current Condition Pt presents with low back pain . Pain is chronic for 7-8 months. She states that after working in the garden, it started to hurt so much across a big swatch. States that she had trouble with bending. Went to [place] for 2 months to help with dying brother; had difficulty with walking, bending, lifting, twisting. Had to use a walker to help with ambulation. She went to a chiro, which helped. Was having difficulty lying flat. No specific LEANNE. However, has had chronic pain. No longer have Sciatic pain. She reports not the leg. Pt reports was going to a chiro 2x a day for 3x/wk. Received manipulations and had pressure points worked on, which helped. She reports that she also gets a midback-L shoulder blade that spreads and goes away. Pt reports bad low back spasms, sleeping was interrupted. Impairments with walking, sleeping better because pills, bending, lifting, twisting, bed mobility, lying flat until in place. Reports that balance is not at good as used to be; reports that she removed grass to help; states not picking up feet. Reports no changes in bowel, bladder. HAs not had an MRI. Has been drinking wine but stopped due to pill intake Prior Treatments and Tests Lumbar spine X-ray 02/2023- Impression: Limited range of motion and multilevel lumbar spine spondylosis, most notably L4-L5 and L5-S1. Current Functional Impairments (Reported) Functional Limitations- ADL's pain with donning/doffing socks, donning/doffing pants pain with all household ADLs does not perform due to pain Functional Limitations- Mobility/Gait sitting- w/ heating pad 20 min standing and ambulating- few minutes STS Transfers- catching with extension PT-OP-C Subjective Start: 04/21/24 09:19 Freq: Status: Active Protocol: Document 07/11/24 13:01 NM (Rec: 07/11/24 13:48 NM [id number]) OP-PT Subjective Patient Comments Patient Comments Pt reports that days are up and down. Still has no pain with sleeping. Wants to trial X over low back. Pt has not been on pain medication for a month. Has not needed heating pad as often. Did try muscle relaxant but states did not help. Reports morning mobility is challenging. Did some outside work over weekend, for 10 min; felt good, no increased pain PT-OP-E Functional Tests Start: 04/21/24 09:19 Freq: Status: Active Protocol: Document 04/21/24 11:37 NM (Rec: 04/21/24 12:27 NM [id number]) Functional Tests Five Times Sit to Stand Test Score unable to complete at this time d/t pain PT-OP-F Manual Assessment Start: 04/21/24 09:19 Freq: Status: Active Protocol: Document 04/21/24 11:37 NM (Rec: 04/21/24 12:27 NM [id number]) Manual Assessments Soft Tissue Assessment Soft Tissue Mobility Assessment Increased restrictions of thoracic and lumbar paraspinals, lat, QL, hip flexors Joint Mobility Assessment Joint Mobility Assessment Hypermobility of lumbar spinous processes with PA springing in sitting and prone , hypomobility of hips B R>L PT-OP-G Mobility & Gait Start: 04/21/24 09:19 Freq: Status: Active Protocol: Document 04/21/24 11:37 NM (Rec: 04/21/24 12:27 NM [id number]) OP Mobility Evaluation Transfers Sit to Stand Requires BUE to push up from chair, must pause in coming to stand d/t pain OP Gait Assessment Gait Gait Assistance Required: Standby Assistance Distance (Feet) 150 Gait Deviations General Gait Pattern Antalgic,Flexed Trunk,Narrow Based Gait PT-OP-H Neuro Start: 04/21/24 09:19 Freq: Status: Active Protocol: Document 04/21/24 11:37 NM (Rec: 04/21/24 12:27 NM [id number]) Deep Tendon Reflex & Clonus Assessment Deep Tendon Reflex Bilateral Patellar Deep Tendon Reflex 1+ Diminished PT-OP-J Posture/Palpation/Skin Start: 04/21/24 09:19 Freq: Status: Active Protocol: Document 04/21/24 11:37 NM (Rec: 04/21/24 12:27 NM [id number]) Posture Evaluation Position Standing Head/C-Spine Posture Forward Head L-Spine Posture Decreased Lordosis Shoulder Posture (L) Rounded,(R) Rounded Pelvis Posture Posterior Tilted Hip Posture (L) Externally Rotated,(R) Externally Rotated Knee Posture (L) Genu Valgus,(R) Genu Valgus Comments Posture Comments Demos tendency for flexed trunk position instead of extension, even posturally when sitting Palpation Assessment Location lumbar spine Palpation Findings Soft Tissue Tightness,Spasm, Muscle Guarding Palpation Details Tender along lower lumbar spinous and transverse processes, L PSIS and L SIJ Tightness and tenderness along lumbar paraspinals L>R PT-OP-K Range of Motion Start: 04/21/24 09:19 Freq: Status: Active Protocol: Document 06/28/24 11:31 NM (Rec: 06/28/24 12:25 NM [id number]) Lumbar Spine Range of Motion Lumbar Spine Active Percentage Flexion 90 Extension 50 Rotation Left 100 Rotation Right 75 Lateral Flexion Left 75 Lateral Flexion Right 100 Comments IE: pain with all movements sahli ext; demos hitch with eccentric return following flexion 05/18/24: 80% flex, 50% ext, 75 % B LF, 75% rotation PT-OP-L Special Tests Start: 04/21/24 09:19 Freq: Status: Active Protocol: Document 04/21/24 11:37 NM (Rec: 04/21/24 12:27 NM [id number]) Special Tests Lumbar Spine Special Tests Distraction Test Results + Yo/Quadrant Test Results + Other Special Tests Special Tests Drop test: + (pain with slight heel raise and quick drop onto heels); reproduces familiar pain PT-OP-M Strength Start: 04/21/24 09:19 Freq: Status: Active Protocol: Document 06/28/24 11:31 NM (Rec: 06/28/24 12:25 NM [id number]) Trunk Strength Trunk Manual Muscle Testing Flexion 4 Good Extension 4 Good Rotation Left 4 Good Rotation Right 4 Good Lateral Flexion Left 4 Good Lateral Flexion Right 4 Good Comments IE: pain with resisted ext 05/18/24: 4-/5 06/28/24: 4/5 for all MMT; pain free but challenging to stabilize trunk PT-OP-Q Treatments Start: 04/21/24 09:19 Freq: Status: Active Protocol: Document 07/11/24 13:01 NM (Rec: 07/11/24 13:48 NM [id number]) Therapeutic Exercises Supine Exercises piriformis stretch Supine Exercise Name figure 4 stretch Side bilateral Reps/Minutes 30 ea Comments am mobility; pulls knee to chest, no pain in am or during Prone Exercises extension exercises Prone Exercise Name opp arm/leg Side bilateral Resistance cued to limit trunk rot, do not Equipment Used 2 pillows under hips Reps/Minutes 10 Sidelying Exercises sideplank Sidelying Exercise Name modified on elbow w/ knees bent- lifts only (no hold) Side bilateral Reps/Minutes 2x5 Comments pain free; L side more challenging but lifts higher today clam Sidelying Exercise Name HEP review Side bilateral Resistance level 2 band Reps/Minutes 2x10 ea Standing Exercises hip hike Side bilateral Equipment Used hand support on rail, starting position on step Reps/Minutes 7 ea Comments challenging; cued to limit compensations lunges Standing Exercise Name partial ROM Side bilateral Equipment Used hand support on plinth Reps/Minutes 10 ea Comments I like it rows Standing Exercise Name low row Side bilateral Resistance level 3 band Reps/Minutes 2x10 lat pull down Standing Exercise Name HEP review Side bilateral Resistance level 3 band Reps/Minutes 2x10 Comments cued for staggered stance for stab resisted stepping Standing Exercise Name 1. lateral, 2. fwd/retro Side bilateral Resistance level 2 band at thighs Reps/Minutes 2x15 ft Comments challenging to coord. Other Exercises counter top stretch Other Exercise Name on TM bar Side bilateral Reps/Minutes 3x10 holds Comments pain free Manual Therapy Treatment Consent Patient gave verbal consent for manual Yes treatment Taping lower thoracic to SI Treatment Focus for tacitle cues for posture and for pain Type of Tape Kinesiotape Skin Inspection WNL Comments I strips horizontal across spine for pain. performed in sitting today skin assessed prior and after taping; no redness from past tape prior to re-taping. Educated to remove in 3-5 days unless skin irritation or rash occurs, then remove sb PT-OP-T Assessment and Plan Start: 04/21/24 09:19 Freq: Status: Active Protocol: Document 07/11/24 13:01 NM (Rec: 07/11/24 13:48 NM [id number]) Physical Therapy Assessment Goals Four Impairment compliance with HEP Group Home Goal (LTG) Pt will report compliance with HEP at least 3x/wk in order to maximize progression with PT and transition to maintenance program 05/18/24: performing HEP 3x/wk LTG Duration 10 weeks MET Three Impairment pain with transfers Short Term Goal (STG) Pt will be able to perform at least 8/10 STS without compensation or increase in low back pain in order to demonstrate increased BLE strength and symptom management during transfers 05/18/24: 10 STS, no increase in back pain but still present 06/14/24 Mehnaz reports decreased pain with sit to stand post sit to stand training and deadlift training . 06/28/24: no back pain during STS from standard ht (on plinth) with band; prn cues for hip hinge STG Duration MET Bag Loader Machine Operator Goal (LTG) Pt will be able to perform at least 5x STS at age-related norms (12.6 seconds) if appropriate in order to demonstrate increased BLE strength and symptom management during transfers 06/28/24: 13.2 sec, demos difficulty with hip hinge- PROGRESSING LTG Duration 8 weeks Two Impairment trunk and BLE strength impaired d/t pain and weakness Bag Loader Machine Operator Goal (LTG) Pt will increase trunk and BLE strength globally to at least 4/5 MMT without increase in back pain in order to demonstrate improved strength for gait and transfers 05/18/24: 4-/5 for all 06/28/24: 4/5 for all, pain free LTG Duration 10 weeks MET 06/28/24 One Impairment BENJAMIN 58% impairment of ADLs/ IADLs and mobility Short Term Goal (STG) Pt will improve standing and ambulation tolerance to > 10 minutes with back pain <6/10 in order to demonstrate improved symptom management and activity tolerance. 05/18/24: pt reports >6/10 pain with standing, unable to achieve 10 min without support STG Duration 6 weeks Bag Loader Machine Operator Goal (LTG) Pt will report that she is impaired <30% with ADLs/IADLs due to back pain in order to demonstrate improved symptom management 06/28/24: 44/100 (44% impairment), 1 MCID improvement LTG Duration 8 weeks- GOAL UPDATED Assessment Summary Assessment HEP review to address pt concerns about her pain when she wakes up; cueing needed for form and set up. Recommend second pillow for prone exercises. Jania improved height from table on L side during side plank on plinth, able to follow up with standing QL strengthening on stairs. Good follow up to lat pull down and low row for further posterior chain strengthening. Trialed standing hip strengthening with resisted stepping; cuing needed for core bracing and tall posture. Pt progressing toward independence with managing symptoms and HEP; would continue to benefit from skilled PT at this time to continue managment. Physical Therapy Plan Frequency and Duration Frequency of Treatment 1-2x/wk Duration of treatment (weeks) 8 Plan of Care Start Date 06/28/24 Plan of Care End Date 08/26/24 Therapeutic Interventions Therapeutic Interventions Balance Training,Gait Training ,Home Exercise Program,Joint Mobilizations,Manual Therapy, Neuromuscular Re-education, Orthotic/Prosthetic Management ,Patient/Caregiver Education, Self-Care/Home Management, Sensory Integration,Soft Tissue Mobilization,Taping, Therapeutic Activities, Therapeutic Exercises Modalities Cold Pack/Ice Massage,Electric Stimulation,Hot Packs, Ultrasound Other Therapeutic Interventions No lumbar spine mobilization d /t instability on past imaging (retrolisthesis) Pelvic realignment and MET as needed Other Referrals/Consults Referrals/Consults Recommended May benefit from advanced imaging of lumbar spine due to pain Next Visit Focus/Plan Next Note Type Treatment Note Next Visit Plan Begin to work into seated trunk flexion for ROM and eventually strength. Cont and Add standing hip strength to HEP if octavio. Update HEP. Tape only if needed. Deadlift w/ weight as able, leg press. back strengthening: carries, lifting mechanics. seated ext vs quadruped Manual: STM to low back as needed only
--- NOTE | 2024-07-25 12:02 | PT.OTN ---
Current Diagnoses Stiffness of right hip, not elsewhere classified (07/25/24) Stiffness of left hip, not elsewhere classified (07/25/24) Radiculopathy, site unspecified (07/25/24) Other lack of coordination (07/25/24) Weakness (07/25/24) Physical Therapy Treatment Note PT-OP-A Visit Information Start: 04/21/24 09:19 Freq: Status: Active Protocol: Document 07/25/24 11:31 NM (Rec: 07/25/24 12:02 NM [id number]) Out-Patient Physical Therapy Visit Information Visit Information Visit Type Treatment Note Visit Start Time 11:33 Visit Stop Time 11:45 Visit Number 18 (10/22 post PN) Evaluation Information Evaluation Date 04/21/24 Precautions Precautions Hx retrolisthesis PT-OP-B Current Condition Start: 04/21/24 09:19 Freq: Status: Active Protocol: Document 04/21/24 11:37 NM (Rec: 04/21/24 12:27 NM [id number]) Current Condition History of Current Condition Current Complaints pain, weakness, poor balance History of Current Condition Pt presents with low back pain . Pain is chronic for 7-8 months. She states that after working in the garden, it started to hurt so much across a big swatch. States that she had trouble with bending. Went to [place] for 2 months to help with dying brother; had difficulty with walking, bending, lifting, twisting. Had to use a walker to help with ambulation. She went to a chiro, which helped. Was having difficulty lying flat. No specific LEANNE. However, has had chronic pain. No longer have Sciatic pain. She reports not the leg. Pt reports was going to a chiro 2x a day for 3x/wk. Received manipulations and had pressure points worked on, which helped. She reports that she also gets a midback-L shoulder blade that spreads and goes away. Pt reports bad low back spasms, sleeping was interrupted. Impairments with walking, sleeping better because pills, bending, lifting, twisting, bed mobility, lying flat until in place. Reports that balance is not at good as used to be; reports that she removed grass to help; states not picking up feet. Reports no changes in bowel, bladder. HAs not had an MRI. Has been drinking wine but stopped due to pill intake Prior Treatments and Tests Lumbar spine X-ray 02/2023- Impression: Limited range of motion and multilevel lumbar spine spondylosis, most notably L4-L5 and L5-S1. Current Functional Impairments (Reported) Functional Limitations- ADL's pain with donning/doffing socks, donning/doffing pants pain with all household ADLs does not perform due to pain Functional Limitations- Mobility/Gait sitting- w/ heating pad 20 min standing and ambulating- few minutes STS Transfers- catching with extension PT-OP-C Subjective Start: 04/21/24 09:19 Freq: Status: Active Protocol: Document 07/25/24 11:31 NM (Rec: 07/25/24 12:02 NM [id number]) OP-PT Subjective Patient Comments Patient Comments Pt continues to report good days and bad days. Pt reports currently has a sore throat and a canker sore; wants to try PT today but just not feeling well. Has been thinking about doing more of her PT at home as has not been doing exercises as much as I should. Reports needs a thick mat but has not been to store. Thinking about d/c in future sessions as wants to do more at home vs take up time in PT. Trunk rotation in car e .g. to put on seat belt still hard. Has not been on pain pills for over a month. PT-OP-E Functional Tests Start: 04/21/24 09:19 Freq: Status: Active Protocol: Document 04/21/24 11:37 NM (Rec: 04/21/24 12:27 NM [id number]) Functional Tests Five Times Sit to Stand Test Score unable to complete at this time d/t pain PT-OP-F Manual Assessment Start: 04/21/24 09:19 Freq: Status: Active Protocol: Document 04/21/24 11:37 NM (Rec: 04/21/24 12:27 NM [id number]) Manual Assessments Soft Tissue Assessment Soft Tissue Mobility Assessment Increased restrictions of thoracic and lumbar paraspinals, lat, QL, hip flexors Joint Mobility Assessment Joint Mobility Assessment Hypermobility of lumbar spinous processes with PA springing in sitting and prone , hypomobility of hips B R>L PT-OP-G Mobility & Gait Start: 04/21/24 09:19 Freq: Status: Active Protocol: Document 04/21/24 11:37 NM (Rec: 04/21/24 12:27 NM [id number]) OP Mobility Evaluation Transfers Sit to Stand Requires BUE to push up from chair, must pause in coming to stand d/t pain OP Gait Assessment Gait Gait Assistance Required: Standby Assistance Distance (Feet) 150 Gait Deviations General Gait Pattern Antalgic,Flexed Trunk,Narrow Based Gait PT-OP-H Neuro Start: 04/21/24 09:19 Freq: Status: Active Protocol: Document 04/21/24 11:37 NM (Rec: 04/21/24 12:27 NM [id number]) Deep Tendon Reflex & Clonus Assessment Deep Tendon Reflex Bilateral Patellar Deep Tendon Reflex 1+ Diminished PT-OP-J Posture/Palpation/Skin Start: 04/21/24 09:19 Freq: Status: Active Protocol: Document 04/21/24 11:37 NM (Rec: 04/21/24 12:27 NM [id number]) Posture Evaluation Position Standing Head/C-Spine Posture Forward Head L-Spine Posture Decreased Lordosis Shoulder Posture (L) Rounded,(R) Rounded Pelvis Posture Posterior Tilted Hip Posture (L) Externally Rotated,(R) Externally Rotated Knee Posture (L) Genu Valgus,(R) Genu Valgus Comments Posture Comments Demos tendency for flexed trunk position instead of extension, even posturally when sitting Palpation Assessment Location lumbar spine Palpation Findings Soft Tissue Tightness,Spasm, Muscle Guarding Palpation Details Tender along lower lumbar spinous and transverse processes, L PSIS and L SIJ Tightness and tenderness along lumbar paraspinals L>R PT-OP-K Range of Motion Start: 04/21/24 09:19 Freq: Status: Active Protocol: Document 06/28/24 11:31 NM (Rec: 06/28/24 12:25 NM [id number]) Lumbar Spine Range of Motion Lumbar Spine Active Percentage Flexion 90 Extension 50 Rotation Left 100 Rotation Right 75 Lateral Flexion Left 75 Lateral Flexion Right 100 Comments IE: pain with all movements ashli ext; demos hitch with eccentric return following flexion 05/18/24: 80% flex, 50% ext, 75 % B LF, 75% rotation PT-OP-L Special Tests Start: 04/21/24 09:19 Freq: Status: Active Protocol: Document 04/21/24 11:37 NM (Rec: 04/21/24 12:27 NM [id number]) Special Tests Lumbar Spine Special Tests Distraction Test Results + Yo/Quadrant Test Results + Other Special Tests Special Tests Drop test: + (pain with slight heel raise and quick drop onto heels); reproduces familiar pain PT-OP-M Strength Start: 04/21/24 09:19 Freq: Status: Active Protocol: Document 06/28/24 11:31 NM (Rec: 06/28/24 12:25 NM [id number]) Trunk Strength Trunk Manual Muscle Testing Flexion 4 Good Extension 4 Good Rotation Left 4 Good Rotation Right 4 Good Lateral Flexion Left 4 Good Lateral Flexion Right 4 Good Comments IE: pain with resisted ext 05/18/24: 4-/5 06/28/24: 4/5 for all MMT; pain free but challenging to stabilize trunk PT-OP-Q Treatments Start: 04/21/24 09:19 Freq: Status: Active Protocol: Document 07/25/24 11:31 NM (Rec: 07/25/24 12:02 NM [id number]) Manual Therapy Treatment Consent Patient gave verbal consent for manual Yes treatment Soft Tissue Mobilization lumbar spine Body Location QL, paraspinals Mobilization Type Rolling,Strumming Intensity/Depth Superficial Body Position Sitting Comments Sitting with trunk flexion support on pillows. No tenderness with mobilization but some tightness present. no pain. Reports that feels like her throat and achiness is worse in position and wants to leave session Taping lower thoracic to SI Treatment Focus for tactile cues for posture and for pain Type of Tape Kinesiotape Skin Inspection WNL Comments I strips horizontal across spine for pain, 2 I strips in X at SIJ. performed in sitting skin assessed prior and after taping; no redness from past tape prior to re-taping. Educated to remove in 3-5 days unless skin irritation or rash occurs, then remove sb Self-Care/Home Management Treatment Education Patient Education Home Exercise Program,Pain Management Other Education PT provided education to pt ( just as PT did at evaluation and previous sessions) about point of PT to help pt decrease pain then progressively manage with HEP with goal to transition to progressive independence with HEP PT-OP-T Assessment and Plan Start: 04/21/24 09:19 Freq: Status: Active Protocol: Document 07/25/24 11:31 NM (Rec: 07/25/24 12:02 NM [id number]) Physical Therapy Assessment Goals Four Impairment compliance with HEP Link Trainer Maintenance Worker Goal (LTG) Pt will report compliance with HEP at least 3x/wk in order to maximize progression with PT and transition to maintenance program 05/18/24: performing HEP 3x/wk LTG Duration 10 weeks MET Three Impairment pain with transfers Short Term Goal (STG) Pt will be able to perform at least 8/10 STS without compensation or increase in low back pain in order to demonstrate increased BLE strength and symptom management during transfers 05/18/24: 10 STS, no increase in back pain but still present 06/14/24 Mehnaz reports decreased pain with sit to stand post sit to stand training and deadlift training . 06/28/24: no back pain during STS from standard ht (on plinth) with band; prn cues for hip hinge STG Duration MET Link Trainer Maintenance Worker Goal (LTG) Pt will be able to perform at least 5x STS at age-related norms (12.6 seconds) if appropriate in order to demonstrate increased BLE strength and symptom management during transfers 06/28/24: 13.2 sec, demos difficulty with hip hinge- PROGRESSING LTG Duration 8 weeks Two Impairment trunk and BLE strength impaired d/t pain and weakness [facility] Goal (LTG) Pt will increase trunk and BLE strength globally to at least 4/5 MMT without increase in back pain in order to demonstrate improved strength for gait and transfers 05/18/24: 4-/5 for all 06/28/24: 4/5 for all, pain free LTG Duration 10 weeks MET 06/28/24 One Impairment BENJAMIN 58% impairment of ADLs/ IADLs and mobility Short Term Goal (STG) Pt will improve standing and ambulation tolerance to > 10 minutes with back pain <6/10 in order to demonstrate improved symptom management and activity tolerance. 05/18/24: pt reports >6/10 pain with standing, unable to achieve 10 min without support STG Duration 6 weeks [facility] Goal (LTG) Pt will report that she is impaired <30% with ADLs/IADLs due to back pain in order to demonstrate improved symptom management 06/28/24: 44/100 (44% impairment), 1 MCID improvement LTG Duration 8 weeks- GOAL UPDATED Assessment Summary Assessment Decreased session time as pt not feeling well. Performed gentle manual therapy to low back for pain management due to achiness. Finished with taping for further pain management as helps pt most with ADL performance. PT educated pt on transition to HEP for management vs continuing with PT. PT and pt in agreement about discharge in next session to maintenance as overall pt managing symptoms better, but needs to have better compliance with HEP for improved carryover at home for better self management of symptoms as cannot tape at home. Physical Therapy Plan Frequency and Duration Frequency of Treatment 1-2x/wk Duration of treatment (weeks) 8 Plan of Care Start Date 06/28/24 Plan of Care End Date 08/26/24 Therapeutic Interventions Therapeutic Interventions Balance Training,Gait Training ,Home Exercise Program,Joint Mobilizations,Manual Therapy, Neuromuscular Re-education, Orthotic/Prosthetic Management ,Patient/Caregiver Education, Self-Care/Home Management, Sensory Integration,Soft Tissue Mobilization,Taping, Therapeutic Activities, Therapeutic Exercises Modalities Cold Pack/Ice Massage,Electric Stimulation,Hot Packs, Ultrasound Other Therapeutic Interventions No lumbar spine mobilization d /t instability on past imaging (retrolisthesis) Pelvic realignment and MET as needed Other Referrals/Consults Referrals/Consults Recommended May benefit from advanced imaging of lumbar spine due to pain Next Visit Focus/Plan Next Note Type Discharge Summary Next Visit Plan Begin to work into seated trunk flexion and rotation for ROM and eventually strength. Cont and Add standing hip strength to HEP if octavio. Update HEP. Tape only if needed. Deadlift w/ weight as able, leg press. back strengthening: carries, lifting mechanics. seated ext vs quadruped Manual: STM to low back as needed only
--- NOTE | 2024-08-01 12:58 | PT.OTN ---
Current Diagnoses Stiffness of right hip, not elsewhere classified (08/01/24) Stiffness of left hip, not elsewhere classified (08/01/24) Radiculopathy, site unspecified (08/01/24) Other lack of coordination (08/01/24) Weakness (08/01/24) Physical Therapy Treatment Note PT-OP-A Visit Information Start: 04/21/24 09:19 Freq: Status: Active Protocol: Document 08/01/24 11:34 NM (Rec: 08/01/24 12:23 NM [id number]) Out-Patient Physical Therapy Visit Information Visit Information Visit Type Discharge Summary Visit Start Time 11:35 Visit Stop Time 12:15 Visit Number 19 (11/22) Evaluation Information Evaluation Date 04/21/24 Precautions Precautions Hx retrolisthesis PT-OP-B Current Condition Start: 04/21/24 09:19 Freq: Status: Active Protocol: Document 04/21/24 11:37 NM (Rec: 04/21/24 12:27 NM [id number]) Current Condition History of Current Condition Current Complaints pain, weakness, poor balance History of Current Condition Pt presents with low back pain . Pain is chronic for 7-8 months. She states that after working in the garden, it started to hurt so much across a big swatch. States that she had trouble with bending. Went to [place] for 2 months to help with dying brother; had difficulty with walking, bending, lifting, twisting. Had to use a walker to help with ambulation. She went to a chiro, which helped. Was having difficulty lying flat. No specific LEANNE. However, has had chronic pain. No longer have Sciatic pain. She reports not the leg. Pt reports was going to a chiro 2x a day for 3x/wk. Received manipulations and had pressure points worked on, which helped. She reports that she also gets a midback-L shoulder blade that spreads and goes away. Pt reports bad low back spasms, sleeping was interrupted. Impairments with walking, sleeping better because pills, bending, lifting, twisting, bed mobility, lying flat until in place. Reports that balance is not at good as used to be; reports that she removed grass to help; states not picking up feet. Reports no changes in bowel, bladder. HAs not had an MRI. Has been drinking wine but stopped due to pill intake Prior Treatments and Tests Lumbar spine X-ray 02/2023- Impression: Limited range of motion and multilevel lumbar spine spondylosis, most notably L4-L5 and L5-S1. Current Functional Impairments (Reported) Functional Limitations- ADL's pain with donning/doffing socks, donning/doffing pants pain with all household ADLs does not perform due to pain Functional Limitations- Mobility/Gait sitting- w/ heating pad 20 min standing and ambulating- few minutes STS Transfers- catching with extension PT-OP-C Subjective Start: 04/21/24 09:19 Freq: Status: Active Protocol: Document 08/01/24 11:34 NM (Rec: 08/01/24 12:23 NM [id number]) OP-PT Subjective Patient Comments Patient Comments Pt reports good and bad days. Wants to d/c PT today. Went to PCP, had good check up. Planning to go Dr. Ronquillo for possible injection. Reports that sleeping is still going well but does not feel flat. Reports doing well overall, has been partialy compliant with HEP. Reports minimal interference with ADLs PT-OP-E Functional Tests Start: 04/21/24 09:19 Freq: Status: Active Protocol: Document 04/21/24 11:37 NM (Rec: 04/21/24 12:27 NM [id number]) Functional Tests Five Times Sit to Stand Test Score unable to complete at this time d/t pain PT-OP-F Manual Assessment Start: 04/21/24 09:19 Freq: Status: Active Protocol: Document 04/21/24 11:37 NM (Rec: 04/21/24 12:27 NM [id number]) Manual Assessments Soft Tissue Assessment Soft Tissue Mobility Assessment Increased restrictions of thoracic and lumbar paraspinals, lat, QL, hip flexors Joint Mobility Assessment Joint Mobility Assessment Hypermobility of lumbar spinous processes with PA springing in sitting and prone , hypomobility of hips B R>L PT-OP-G Mobility & Gait Start: 04/21/24 09:19 Freq: Status: Active Protocol: Document 04/21/24 11:37 NM (Rec: 04/21/24 12:27 NM [id number]) OP Mobility Evaluation Transfers Sit to Stand Requires BUE to push up from chair, must pause in coming to stand d/t pain OP Gait Assessment Gait Gait Assistance Required: Standby Assistance Distance (Feet) 150 Gait Deviations General Gait Pattern Antalgic,Flexed Trunk,Narrow Based Gait PT-OP-H Neuro Start: 04/21/24 09:19 Freq: Status: Active Protocol: Document 04/21/24 11:37 NM (Rec: 04/21/24 12:27 NM [id number]) Deep Tendon Reflex & Clonus Assessment Deep Tendon Reflex Bilateral Patellar Deep Tendon Reflex 1+ Diminished PT-OP-J Posture/Palpation/Skin Start: 04/21/24 09:19 Freq: Status: Active Protocol: Document 04/21/24 11:37 NM (Rec: 04/21/24 12:27 NM [id number]) Posture Evaluation Position Standing Head/C-Spine Posture Forward Head L-Spine Posture Decreased Lordosis Shoulder Posture (L) Rounded,(R) Rounded Pelvis Posture Posterior Tilted Hip Posture (L) Externally Rotated,(R) Externally Rotated Knee Posture (L) Genu Valgus,(R) Genu Valgus Comments Posture Comments Demos tendency for flexed trunk position instead of extension, even posturally when sitting Palpation Assessment Location lumbar spine Palpation Findings Soft Tissue Tightness,Spasm, Muscle Guarding Palpation Details Tender along lower lumbar spinous and transverse processes, L PSIS and L SIJ Tightness and tenderness along lumbar paraspinals L>R PT-OP-K Range of Motion Start: 04/21/24 09:19 Freq: Status: Active Protocol: Document 08/01/24 11:34 NM (Rec: 08/01/24 12:23 NM [id number]) Lumbar Spine Range of Motion Lumbar Spine Active Percentage Flexion 100 Extension 50 Rotation Left 100 Rotation Right 75 Lateral Flexion Left 75 Lateral Flexion Right 100 Comments IE: pain with all movements ashli ext; demos hitch with eccentric return following flexion 05/18/24: 80% flex, 50% ext, 75 % B LF, 75% rotation PT-OP-L Special Tests Start: 04/21/24 09:19 Freq: Status: Active Protocol: Document 04/21/24 11:37 NM (Rec: 04/21/24 12:27 NM [id number]) Special Tests Lumbar Spine Special Tests Distraction Test Results + Yo/Quadrant Test Results + Other Special Tests Special Tests Drop test: + (pain with slight heel raise and quick drop onto heels); reproduces familiar pain PT-OP-M Strength Start: 04/21/24 09:19 Freq: Status: Active Protocol: Document 08/01/24 11:34 NM (Rec: 08/01/24 12:23 NM [id number]) Trunk Strength Trunk Manual Muscle Testing Flexion 4+ Good+ Extension 4+ Good+ Rotation Left 4+ Good+ Rotation Right 4+ Good+ Lateral Flexion Left 4+ Good+ Lateral Flexion Right 4+ Good+ Comments IE: pain with resisted ext 05/18/24: 4-/5 06/28/24: 4/5 for all MMT; pain free but challenging to stabilize trunk PT-OP-Q Treatments Start: 04/21/24 09:19 Freq: Status: Active Protocol: Document 08/01/24 11:34 NM (Rec: 08/01/24 12:23 NM [id number]) Therapeutic Exercises Sidelying Exercises reverse clam Side bilateral Resistance level 3 band at thighs Reps/Minutes 2x10 Comments level 3 to HEP clam Sidelying Exercise Name HEP review Side bilateral Resistance level 3 band Reps/Minutes 2x10 ea Comments level 3 band to HEP Standing Exercises push up Standing Exercise Name on wall Side bilateral Equipment Used incline at wall Reps/Minutes 2x10 Comments cued neutral spine as needed hip abduction Standing Exercise Name AROM Side bilateral Equipment Used 1 hand support on counter top, other on pelvis for cues Reps/Minutes 2x10 ea Comments cued core bracing, level pelvis; edu add band for progression hip ext Standing Exercise Name AROM Side bilateral Equipment Used 1 hand support on counter top, other on pelvis for cues Reps/Minutes 2x10 ea Comments edu to add band for HEP for progression sit to stand with band Standing Exercise Name 1. 5x STS, 2. STS to chair Side bilateral Equipment Used std chair Reps/Minutes 1. 12 sec, 2. 10 c/ level 2 band Comments band to limit valgus Other Exercises counter top stretch Other Exercise Name on counter top- HEP review Side bilateral Reps/Minutes 30 Comments pain free PT-OP-T Assessment and Plan Start: 04/21/24 09:19 Freq: Status: Active Protocol: Document 08/01/24 11:34 NM (Rec: 08/01/24 12:23 NM [id number]) Physical Therapy Assessment Goals Four Impairment compliance with HEP Bariatric Coordinator Goal (LTG) Pt will report compliance with HEP at least 3x/wk in order to maximize progression with PT and transition to maintenance program 05/18/24: performing HEP 3x/wk LTG Duration 10 weeks MET Three Impairment pain with transfers Short Term Goal (STG) Pt will be able to perform at least 8/10 STS without compensation or increase in low back pain in order to demonstrate increased BLE strength and symptom management during transfers 05/18/24: 10 STS, no increase in back pain but still present 06/14/24 Mehnaz reports decreased pain with sit to stand post sit to stand training and deadlift training . 06/28/24: no back pain during STS from standard ht (on plinth) with band; prn cues for hip hinge STG Duration MET Bariatric Coordinator Goal (LTG) Pt will be able to perform at least 5x STS at age-related norms (12.6 seconds) if appropriate in order to demonstrate increased BLE strength and symptom management during transfers 06/28/24: 13.2 sec, demos difficulty with hip hinge- PROGRESSING 08/01/24: 12 seconds from standard chair, improved hip hinge LTG Duration 8 weeks MET Two Impairment trunk and BLE strength impaired d/t pain and weakness Bariatric Coordinator Goal (LTG) Pt will increase trunk and BLE strength globally to at least 4/5 MMT without increase in back pain in order to demonstrate improved strength for gait and transfers 05/18/24: 4-/5 for all 06/28/24: 4/5 for all, pain free LTG Duration 10 weeks MET 06/28/24 One Impairment BENJAMIN 58% impairment of ADLs/ IADLs and mobility Short Term Goal (STG) Pt will improve standing and ambulation tolerance to > 10 minutes with back pain <6/10 in order to demonstrate improved symptom management and activity tolerance. 05/18/24: pt reports >6/10 pain with standing, unable to achieve 10 min without support STG Duration 6 weeks Bariatric Coordinator Goal (LTG) Pt will report that she is impaired <30% with ADLs/IADLs due to back pain in order to demonstrate improved symptom management 06/28/24: 44/100 (44% impairment), 1 MCID improvement 08/01/24: 20% impairment LTG Duration 8 weeks- GOAL UPDATED- MET Progress Towards Goals Progress Towards Goals Progressing Toward Goals,Slow Progress due to Noncompliance, Goals Met Assessment Summary Assessment Pt tolerated session well, able to tolerate progressions to HEP with resistance and standing activities. Cueing needed for form, core bracing. However, improved with reps, decreased cues with time. Provided banded progressions for maintenance program as pt discharging from PT today for carryover at home. Pt reports overall significant decreases in overall pain levels, only 20% impairment on oswestry. Physical Therapy Plan Frequency and Duration Frequency of Treatment 1-2x/wk Duration of treatment (weeks) 8 Plan of Care Start Date 06/28/24 Plan of Care End Date 08/26/24 Therapeutic Interventions Therapeutic Interventions Balance Training,Gait Training ,Home Exercise Program,Joint Mobilizations,Manual Therapy, Neuromuscular Re-education, Orthotic/Prosthetic Management ,Patient/Caregiver Education, Self-Care/Home Management, Sensory Integration,Soft Tissue Mobilization,Taping, Therapeutic Activities, Therapeutic Exercises Modalities Cold Pack/Ice Massage,Electric Stimulation,Hot Packs, Ultrasound Other Therapeutic Interventions No lumbar spine mobilization d /t instability on past imaging (retrolisthesis) Pelvic realignment and MET as needed Other Referrals/Consults Referrals/Consults Recommended May benefit from advanced imaging of lumbar spine due to pain Discharge Physical Therapy Discharge Reasons Goals Met Discharge Comments All goals met. PT and pt discussed discharge to maintenance program for progressive independence with symptom management. Pt with improved compliance to HEP. Issued progressions with bands and exercises for pt to self- progress at her request. Educated to follow up with PCP or specialist if pain recurs, worsens, or changes. PT and pt in agreement about discharge to maintenance program Next Visit Focus/Plan Next Note Type Discharge Summary Next Visit Plan discharge from PT
== END 2024-08-08 09:45 | disposition home or self-care (01) ==
LOC: PHYS 11:30
PROVIDERS: Family Provider Family Medicine; PCP Family Medicine; Referring Provider Family Medicine; Visit Provider Family Medicine
DX: M54.10 Radiculopathy, site unspecified (principal); R53.1 Weakness; R27.8 Other lack of coordination; M25.652 Stiffness of left hip, not elsewhere classified; M25.651 Stiffness of right hip, not elsewhere classified
CPT/HCPCS: 97110; 97140; 97161; 97530

== ENCOUNTER → 2024-08-30 13:20 | Outpatient (CLI) | payer MEDICARE, OTHER, SELFPAY ==
--- NOTE | 2024-08-30 13:24 | DI.RAD.S_ITS ---
PROCEDURE: XR DEXA AXIAL SKELETON INDICATIONS: POST MENOPAUSAL COMPARISON: [facility], CR, XR DEXA AXIAL SKELETON, 07/02/2018, 9:57. FINDINGS: Lumbar Spine: Bone mineral density 0.951 (previously 1.089) g/cm2, T score -0.9 (previously-0.9). Left Femoral Neck: Bone mineral density 0.783 g/cm2, T score -0.6. Left Hip: Bone mineral density 0.742 g/cm2, T score -1.6. Fracture Risk Calculation (when applicable): 10-year fracture risk of a major osteoporotic fracture 10 percent and of a hip fracture 1.6 percent. (T score greater or equal to -1.0 to: NORMAL) (T score from -1.1 to -2.4: OSTEOPENIA) (T score less than or equal to -2.5: OSTEOPOROSIS) IMPRESSION: Osteopenia---recommend repeat DEXA in 2-3 years for reassessment. Follow-up guidelines as follows: Osteoporosis: Consider a repeat DEXA and Vertebral Fracture Assessment (VFA) exam in 2 years or sooner if medically necessary, to reassess this patient's status. Osteopenia: Consider a repeat DEXA in 2-3 years to reassess this patient's status, or if there is a new clinical indication. Normal: Consider a repeat DEXA in 5 years or sooner, or if there is a new clinical indication. All treatment decisions require clinical judgment and consideration of individual patient factors, including patient preferences, comorbidities, previous drug use, risk factors not captured in the FRAX model (e.g., frailty, falls, vitamin D deficiency, increased bone turnover, interval significant decline in bone density ) and possible under- or over-estimation of fracture risk by FRAX. In addition, the NOF Guide recommends that FDA-approved medical therapies be considered in postmenopausal women and men age >= 50 years with a: * Hip or vertebral (clinical or morphometric) fracture * T-score of <=-2.5 at the spine or hip * Ten-year fracture probability by FRAX of >= 3% for hip fracture or >=20% for major osteoporotic fracture. Dictated by: Phani Lozano M.D. on 08/31/2024 at 2:02 Approved by: Phani Lozano M.D. on 08/31/2024 at 2:05
== END ==
PROVIDERS: Family Provider Family Medicine; PCP Family Medicine; Referring Provider Family Medicine; Visit Provider Family Medicine
DX: Z78.0 Asymptomatic menopausal state (principal); M85.852 Other specified disorders of bone density and structure, left thigh
CPT/HCPCS: 77080